=== PATIENT | female | born 1935 | race Caucasian/White ===

== ENCOUNTER 2021-03-28 21:59 | Inpatient (IN) | payer OTHER ==
[2021-03-28] MEDS ORDERED: ONDANSETRON 4 MG/2 ML VIAL ONE (22:24)
[2021-03-28] MEDS ORDERED: FENTANYL CITR 100 MCG/2 ML ONE ×2 (22:24→23:23)
--- NOTE | 2021-03-28 23:36 | ER ---
Nurse's Notes [facility] Name: Maureen Martin Age: 85 yrs Sex: Female : 1935 Arrival Date: 03/28/2021 Time: 22:02 Bed 7 Private MD: Diagnosis: Incomplete fracture along the superior aspect of the left femoral neck Presentation: 03/28 22:14 Chief complaint: EMS states: Called for left groin pain after fall in parking lot at lp1 1500 today; Patient denies any other injuries, no head injury, no LOC. Coronavirus screen: At this time, the client does not indicate any symptoms associated with coronavirus-19. Ebola Screen: No symptoms or risks identified at this time. Initial Sepsis Screen: Does the patient meet any 2 criteria? No. Patient's initial sepsis screen is negative. Does the patient have a suspected source of infection? No. Patient's initial sepsis screen is negative. Risk Assessment: Do you want to hurt yourself or someone else? Patient reports no desire to harm self or others. Onset of symptoms was March 28, 2021 at 15:00. 22:14 Method Of Arrival: EMS: [facility] lp1 22:14 Acuity: TAYLA 2 lp1 22:15 Care prior to arrival: None. Mechanism of Injury: Fall from standing position. Trauma lp1 event details: Injury occurred in the [facility], Injury occurred: in a public building. Injury occurred: March 28, 2021 Injury occurred at: 15:00. Historical: - Allergies: 22:17 Latex, Natural Rubber; lp1 - Home Meds: 22:17 Xarelto 20 mg oral tab 1 tab once daily [Active]; omeprazole 40 mg Oral cpDR 1 cap once lp1 daily [Active]; oxybutynin chloride 10 mg Oral tr24 1 tab once daily [Active]; rosuvastatin 10 mg oral tab 1 tab once daily [Active]; - PMHx: 22:17 Hypertensive disorder; hyperlipidemia; Atrial fibrillation; lp1 - PSHx: 22:17 Partial hysterectomy; lp1 - Immunization history:: Adult Immunizations up to date, Client reports receiving the 2nd dose of the Covid vaccine. - Social history:: Smoking status: Patient reports the use of cigarette tobacco products, smokes one-half pack cigarettes per day. - Immunization history: Last tetanus immunization: unknown. Screenin:00 Abuse screen: Denies threats or abuse. Denies injuries from another. Tuberculosis lp1 screening: No symptoms or risk factors identified. 03/29 00:19 Nutritional screening: No deficits noted. Fall Risk Total Harper Fall Scale indicates lp1 High Risk Score (45 or more points). Fall prevention measures have been instituted. Side Rails Up X 2 As available patient and family educated on Fall Prevention Program and Strategies. Primary Survey: 03/28 22:18 NO uncontrolled hemorrhage observed. A: The patient is alert. Airway: patent, No lp1 supplemental oxygen in use on arrival. Breathing/Chest: Respiratory effort: spontaneous, unlabored, Breath sounds: clear, Chest inspection: symmetrical rise and fall of the chest. Circulation: Skin color: pink, Skin temperature: warm, dry. Disability Alert. Exposure/Environment: Obvious injury(ies) are noted at this time: Reports pain with ROM to left hip. 22:20 Reassessment Breathing/Chest Respiratory pattern Regular Respiratory effort Spontaneous lp1 Unlabored Circulation Color Lisco Temperature Warm Dry Disability Alert. Secondary Survey: 22:45 HEENT: No deficits noted. Gastrointestinal: Abdomen is soft. : No signs and/or lp1 symptoms were reported regarding the genitourinary system. Musculoskeletal: Circulation, motion, and sensation intact. Reports pain in left femoral area. Assessment: 22:30 General: Appears in no apparent distress. Behavior is calm, cooperative. Pain: lp1 Complains of pain in left femoral area Pain currently is 7 out of 10 on a pain scale. Quality of pain is described as aching. Neuro: Level of Consciousness is awake, alert, obeys commands, Oriented to person, place, situation. EENT: No signs and/or symptoms were reported regarding the EENT system. Cardiovascular: Patient's skin is warm and dry. Pulses are palpable in right dorsalis pedis artery and left dorsalis pedis artery. Respiratory: Airway is patent Respiratory effort is even, unlabored. GI: No signs and/or symptoms were reported involving the gastrointestinal system. : No signs and/or symptoms were reported regarding the genitourinary system. Derm: Skin is fragile, is thin, Skin is dry, Skin is normal. Musculoskeletal: Circulation, motion, and sensation intact. Reports pain in left femoral area. Vital Signs: 22:14 BP 140 / 100; Pulse 81; Resp 18; Temp 97.3(TE); Pulse Ox 99% on R/A; Weight 45.36 kg lp1 (R); Pain 7/10; 23:00 BP 145 / 65; Pulse 52; Resp 16; Pulse Ox 97% on R/A; lp1 03/29 00:16 BP 122 / 93; Pulse 55; Resp 16; Pulse Ox 100% on R/A; lp1 04:05 BP 107 / 43; Pulse 47; Resp 19; Pain 10/10; bs2 Sierra Coma Score: 03/28 22:30 Eye Response: spontaneous(4). Verbal Response: oriented(5). Motor Response: obeys lp1 commands(6). Total: 15. Trauma Score (Adult): 22:30 Eye Response: spontaneous(1); Verbal Response: oriented(1); Motor Response: obeys lp1 commands(2); Systolic BP: > 89 mm Hg(4); Respiratory Rate: 10 to 29 per min(4); Jewell Score: 15; Trauma Score: 12 ED Course: 22:02 Patient arrived in ED. mw2 22:03 Ángel Archuleta MD is Attending Physician. pkl 22:12 Inserted saline lock: 20 gauge in right forearm, using aseptic technique. Blood ds4 collected. 22:17 Triage completed. lp1 22:17 Arm band placed on. lp1 22:23 Hip Left 2 View XRAY In Process Unspecified. EDMS 22:30 Patient maintains SpO2 saturation greater than 95% on room air. lp1 22:30 Thermoregulation: warm blanket given to patient. lp1 22:30 Patient has correct armband on for positive identification. Bed in low position. Call lp1 light in reach. hall monitor on. Pulse ox on. NIBP on. 22:45 Hip Left Wo Con In Process Unspecified. EDMS 22:49 Kalee Willett, RN is Primary Nurse. bs2 23:33 Jan Murillo MD is Hospitalizing Provider. pkl 23:49 XRAY Chest (1 view) In Process Unspecified. EDMS 03/29 00:15 May Felix, RN is Primary Nurse. lp1 00:18 No provider procedures requiring assistance completed. Patient admitted, IV remains in lp1 place. 00:25 Troponin (emerg Dept Use Only) Sent. bs2 00:25 NT PRO-BNP Sent. bs2 00:25 Magnesium Sent. bs2 00:25 LFT's Sent. bs2 00:25 Basic Metabolic Panel Sent. bs2 00:26 COVID-19 SARS RT PCR (Document "Date of Onset" if Symptomatic) Sent. bs2 04:05 Troponin I Sent. bs2 Administered Medications: 03/28 22:22 Drug: fentaNYL (PF) 25 mcg Route: IVP; Site: right antecubital; lp1 23:42 Follow up: Response: No adverse reaction lp1 03/29 00:25 Follow up: Response: No adverse reaction bs2 03/28 22:22 Drug: Zofran (Ondansetron) 4 mg Route: IVP; Site: right antecubital; lp1 23:43 Follow up: Response: No adverse reaction lp1 23:28 Drug: fentaNYL (PF) 25 mcg Route: IVP; Site: right forearm; bs2 23:43 Follow up: Response: Pain is decreased lp1 03/29 00:56 Drug: fentaNYL (PF) 25 mcg {Note: Verbal order per Dr. Archuleta.} Route: IVP; Site: right lp1 forearm; 04:05 Follow up: Response: No adverse reaction bs2 03:52 Drug: fentaNYL (PF) 25 mcg Route: IVP; Site: right forearm; bs2 04:05 Follow up: Response: No adverse reaction; Pain is unchanged, physician notified bs2 04:05 Drug: fentaNYL (PF) 25 mcg Route: IVP; Site: right forearm; bs2 04:15 Drug: Atropine 0.5 mg Route: IVP; Site: right forearm; lp1 Outcome: 03/28 23:36 Decision to Hospitalize by Provider. pkl 03/29 00:20 Admitted to ER Hold. Please see [facility] for further documentation. lp1 Condition: stable Instructed on the need for admit. 00:21 admitted as ER HoldPatient's length of stay extended due to lp1 11:03 Patient left the ED. ll1 Signatures: Dispatcher [employer] EDÁngel Perez MD MD pkl May Felix RN RN lp1 Basil Ovalle ds4 Mady Lancaster mw2 Constance Warner RN RN ll1 Kalee Willett RN RN bs2 Corrections: (The following items were deleted from the chart) 03/28 22:18 22:14 BP 140 / 100; Pulse 81bpm; Resp 18bpm; Pulse Ox 99% RA; 45.36 kg Reported; Pain lp1 11/22; lp1
--- NOTE | 2021-03-28 23:36 | EDPHYS ---
Physician Documentation [facility] Name: Maureen Martin Age: 85 yrs Sex: Female : 1935 Arrival Date: 03/28/2021 Time: 22:02 Bed 7 Private MD: ED Physician Ángel Archuleta HPI: 03/28 22:27 This 85 yrs old Female presents to ER via EMS with unknown complaint. pkl 22:27 The patient or guardian reports an injury, pain. sustained from a fall, from a standing pkl position. The complaints affect the left hip. Onset: The symptoms/episode began/occurred today, 6 hour(s) ago. Associated signs and symptoms: Loss of consciousness: the patient experienced no loss of consciousness. Historical: - Allergies: 22:17 Latex, Natural Rubber; lp1 - Home Meds: 22:17 Xarelto 20 mg oral tab 1 tab once daily [Active]; omeprazole 40 mg Oral cpDR 1 cap once lp1 daily [Active]; oxybutynin chloride 10 mg Oral tr24 1 tab once daily [Active]; rosuvastatin 10 mg oral tab 1 tab once daily [Active]; - PMHx: 22:17 Hypertensive disorder; hyperlipidemia; Atrial fibrillation; lp1 - PSHx: 22:17 Partial hysterectomy; lp1 - Immunization history:: Adult Immunizations up to date, Client reports receiving the 2nd dose of the Covid vaccine. - Social history:: Smoking status: Patient reports the use of cigarette tobacco products, smokes one-half pack cigarettes per day. - Immunization history: Last tetanus immunization: unknown. ROS: 22:27 Eyes: Negative for injury, pain, redness, and discharge, ENT: Negative for injury, pkl pain, and discharge, Neck: Negative for injury, pain, and swelling, Cardiovascular: Negative for chest pain, palpitations, and edema, Respiratory: Negative for shortness of breath, cough, wheezing, and pleuritic chest pain, Abdomen/GI: Negative for abdominal pain, nausea, vomiting, diarrhea, and constipation, Back: Negative for injury and pain, : Negative for injury, bleeding, discharge, and swelling. 22:27 MS/extremity: Positive for pain, of the left hip. 22:27 Skin: Negative for rash. 22:27 Neuro: Negative for altered mental status, loss of consciousness. Exam: 22:27 Head/Face: Normocephalic, atraumatic. Eyes: Pupils equal round and reactive to light, pkl extra-ocular motions intact. Lids and lashes normal. Conjunctiva and sclera are non-icteric and not injected. Cornea within normal limits. Periorbital areas with no swelling, redness, or edema. ENT: Nares patent. No nasal discharge, no septal abnormalities noted. Tympanic membranes are normal and external auditory canals are clear. Oropharynx with no redness, swelling, or masses, exudates, or evidence of obstruction, uvula midline. Mucous membranes moist. Neck: Trachea midline, no thyromegaly or masses palpated, and no cervical lymphadenopathy. Supple, full range of motion without nuchal rigidity, or vertebral point tenderness. No Meningismus. Chest/axilla: Normal chest wall appearance and motion. Nontender with no deformity. No lesions are appreciated. Cardiovascular: Regular rate and rhythm with a normal S1 and S2. No gallops, murmurs, or rubs. Normal PMI, no JVD. No pulse deficits. Respiratory: Lungs have equal breath sounds bilaterally, clear to auscultation and percussion. No rales, rhonchi or wheezes noted. No increased work of breathing, no retractions or nasal flaring. Abdomen/GI: Soft, non-tender, with normal bowel sounds. No distension or tympany. No guarding or rebound. No evidence of tenderness throughout. Back: No spinal tenderness. No costovertebral tenderness. Full range of motion. Female : Normal external genitalia. Skin: Warm, dry with normal turgor. Normal color with no rashes, no lesions, and no evidence of cellulitis. Neuro: Awake and alert, GCS 15, oriented to person, place, time, and situation. Cranial nerves II-XII grossly intact. Motor strength 5/5 in all extremities. Sensory grossly intact. Cerebellar exam normal. Normal gait. 22:27 Musculoskeletal/extremity: Extremities: grossly normal except: noted in the left hip: decreased ROM, pain, tenderness. Vital Signs: 22:14 BP 140 / 100; Pulse 81; Resp 18; Temp 97.3(TE); Pulse Ox 99% on R/A; Weight 45.36 kg lp1 (R); Pain 7/10; 23:00 BP 145 / 65; Pulse 52; Resp 16; Pulse Ox 97% on R/A; lp1 03/29 00:16 BP 122 / 93; Pulse 55; Resp 16; Pulse Ox 100% on R/A; lp1 04:05 BP 107 / 43; Pulse 47; Resp 19; Pain 10/10; bs2 Sierra Coma Score: 03/28 22:30 Eye Response: spontaneous(4). Verbal Response: oriented(5). Motor Response: obeys lp1 commands(6). Total: 15. Trauma Score (Adult): 22:30 Eye Response: spontaneous(1); Verbal Response: oriented(1); Motor Response: obeys lp1 commands(2); Systolic BP: > 89 mm Hg(4); Respiratory Rate: 10 to 29 per min(4); Sierra Score: 15; Trauma Score: 12 MDM: 22:03 Patient medically screened. pkl 23:31 Data reviewed: vital signs, nurses notes, lab test result(s), EKG, radiologic studies, pkl CT scan, plain films. ED course: Talked to Dr Peguero, will consult. Admit to Dr. Murillo. 03/28 23:37 Order name: Basic Metabolic Panel; Complete Time: 00:30 pkl 03/28 23:37 Order name: CBC with Diff; Complete Time: 00:12 pkl 03/28 23:37 Order name: LFT's; Complete Time: 00:30 pkl 03/28 23:37 Order name: Magnesium; Complete Time: 00:30 pkl 03/28 23:37 Order name: NT PRO-BNP; Complete Time: 00:30 pkl 03/28 23:37 Order name: PT-INR; Complete Time: 00:12 pk 03/28 23:37 Order name: Troponin (emerg Dept Use Only); Complete Time: 00:30 pkl 03/29 00:25 Order name: COVID-19 SARS RT PCR (Document "Date of Onset" if Symptomatic) bb 03/29 01:04 Order name: Urine Dipstick-Ancillary; Complete Time: 01:42 EDMS 03/29 01:26 Order name: SARS-COV-2 RT PCR; Complete Time: 01:42 EDMS 03/29 03:52 Order name: Troponin I bs2 03/29 04:16 Order name: Troponin I; Complete Time: 05:55 EDMS 03/29 08:21 Order name: PT-INR kb 03/29 08:52 Order name: Protime (+INR) EDMS 03/28 22:10 Order name: Hip Left 2 View XRAY pkl 03/28 22:10 Order name: Saline Lock; Complete Time: 22:14 pkl 03/28 22:25 Order name: Hip Left Wo Con EDNY 03/28 23:37 Order name: XRAY Chest (1 view) pkl 03/28 23:37 Order name: EKG; Complete Time: 23:37 pkl 03/28 23:37 Order name: Cardiac monitoring; Complete Time: 23:42 pkl 03/28 23:37 Order name: EKG - Nurse/Tech; Complete Time: 00:14 pkl 03/28 23:37 Order name: Labs collected and sent; Complete Time: 00:14 pkl 03/28 23:49 Order name: CONS Physician Consult EDNY 03/28 23:37 Order name: O2 Per Protocol; Complete Time: 23:42 pkl 03/28 23:37 Order name: O2 Sat Monitoring; Complete Time: 23:42 pkl 03/28 23:37 Order name: Urine Dipstick-Ancillary (obtain specimen); Complete Time: 00:59 pkl Administered Medications: 22:22 Drug: fentaNYL (PF) 25 mcg Route: IVP; Site: right antecubital; lp1 23:42 Follow up: Response: No adverse reaction lp1 03/29 00:25 Follow up: Response: No adverse reaction bs2 03/28 22:22 Drug: Zofran (Ondansetron) 4 mg Route: IVP; Site: right antecubital; lp1 23:43 Follow up: Response: No adverse reaction lp1 23:28 Drug: fentaNYL (PF) 25 mcg Route: IVP; Site: right forearm; bs2 23:43 Follow up: Response: Pain is decreased lp1 03/29 00:56 Drug: fentaNYL (PF) 25 mcg {Note: Verbal order per Dr. Martínez} Route: IVP; Site: right lp1 forearm; 04:05 Follow up: Response: No adverse reaction bs2 03:52 Drug: fentaNYL (PF) 25 mcg Route: IVP; Site: right forearm; bs2 04:05 Follow up: Response: No adverse reaction; Pain is unchanged, physician notified bs2 04:05 Drug: fentaNYL (PF) 25 mcg Route: IVP; Site: right forearm; bs2 04:15 Drug: Atropine 0.5 mg Route: IVP; Site: right forearm; lp1 Disposition Summary: 03/28/21 23:36 Hospitalization Ordered Hospitalization Status: Inpatient Admission pkl Provider: Jan Murillo pkl Condition: Stable pkl Problem: new pkl Symptoms: are unchanged pkl Bed/Room Type: Standard pkl Location: Telemetry/MedSurg (Inpatient)(03/29/21 10:09) eb Room Assignment: [facility](03/29/21 10:09) eb Diagnosis - Incomplete fracture along the superior aspect of the left femoral neck pkl Forms: - Medication Reconciliation Form pkl - SBAR form pkl Signatures: Dispatcher [employer] EDÁngel Perez MD MD pkl May Felix RN RN lp1 Sienna Arana RN RN cg Botello, Elizabeth eb Smith, Bridget RN RN bs2 Corrections: (The following items were deleted from the chart) 00:27 03/28 23:36 Telemetry/MedSurg (Inpatient) pkl cg 03/29 00:27 03/28 23:36 pkl cg 03/29 10:09 00:27 [facility] ER HOLD cg eb 10:09 00:27 ERHOLD- cg eb
[2021-03-28] MEDS ORDERED: ONDANSETRON 4 MG/2 ML VIAL IV PRN (23:44)
[2021-03-28] MEDS: NA CHLORIDE 0.9% 1,000 ML IV SCH (23:45)
[2021-03-29 00:10] LABS: Absolute Lymphocytes (CBC) 1.4 K/uL (0.7-4.9); Basophils % 0.4 % (0-1.3); Hematocrit 42.8 % (36.0-45.0); Lymphocytes % 14.4 % (15.3-44.8); Protime INR 2.78; RBC Red Blood Cell Count 4.41 M/uL (3.86-4.86)
--- OUTSIDE RECORDS SUMMARY | 2021-03-29 00:21 | XMS REPORT | Continuity of Care Document ---
:1935 Author Organization [facility] t Address [address] [place] [address] Care Team Providers Name Role Phone Tori Attending Clinician Unavailable Jesus GASTELUM Attending Clinician JESUS Attending Clinician Unavailable Kel GASTELUM Attending Clinician KEL Attending Clinician Unavailable Doctor Unassigned, Name Attending Clinician Unavailable GARCÍA Attending Clinician Unavailable Payers Payer Name Policy Type Policy Number Effective Date Expiration Date Ty MCCABE [id number] 2019 PLUS CHOICE 00:00:00 Problems Condition Condition Condition Status Onset Resolution Last Treating Co mments Source Name Details Category Date Date Treatment Clinician Date Uterine Uterine Disease Active 2018-05 Univers polyp polyp 2-06 ity of 00:00: [address] Chronic Chronic Problem Active [facility] atrial atrial [facility] fibrillati fibrillati Me moria on on l [facility] Swelling Swelling Problem Active [facility] Bruising Bruising Problem Active [facility] Skin tear Skin tear Problem Active [facility] of left of left [facility] - upper upper Memoria extremity extremity l [facility] Status Status Problem Active [facility] post fall post fall Luke s - Memoria l [facility] Injury of Injury of Problem Active [facility] head, head, [facility] - initial initial Memoria encounter encounter l [facility] Loss of Loss of Problem Active [facility] consciousn consciousn Brooke kes - ess ess Memoria l [facility] Abnormal Abnormal Problem Active [facility] x-ray of x-ray of [facility] - neck neck Memoria l [facility] Neck pain Neck pain Problem Active [facility]ics Upper back Upper back Problem Active [facility] pain pain [facility] Left eye Left eye Problem Active [facility] complaint complaint [facility] - Memoria l [facility] Elevated Elevated Problem Active [facility] BP without BP without Brooke kes - diagnosis diagnosis Magen mario of of l hypertensi hypertensi Ou tpati on on ent Clinics Dietary Dietary Problem Active [facility] counseling counseling Brooke kes - and and Memoria surveillan surveillan l ce ce [facility] Weight Weight Problem Active [facility] loss loss [facility]ics Skin Skin Problem Active [facility] lesions lesions [facility]ics Onychomyco Onychomyco Diagnosis Active [facility] sis sis [facility] Pain in Pain in Problem Active [facility] right hip right hip [facility] - [facility] Other Other Problem Active [facility] chronic chronic [facility] - pain pain [facility] Peripheral Peripheral Diagnosis Active [facility] vascular vascular [facility] - disease disease [facility] Abnormal Abnormal Problem Active [facility] red cell red cell [facility] Hyperlipid Hyperlipid Diagnosis Active [facility] emia, emia, Lukes - unspecifie unspecifie Me moria d d l hyperlipid hyperlipid Ou tpati emia type emia type ent Clinics Current Current Problem Active [facility] every day every day Luke s - smoker smoker Memoria l [facility] Atrial Atrial Problem Active [facility] fibrillati fibrillati Brooke kes - on, on, Memoria unspecifie unspecifie l d type d type [facility] Claudicati Claudicati Problem Active [facility] on on [facility] Peripheral Peripheral Diagnosis Active [facility] neuropathy neuropathy Brooke kes - Memoria l [facility] Leg pain Leg pain Problem Active [facility]ics Prediabete Prediabete Problem Active [facility] s [facility] Low back Low back Problem Active [facility] pain pain [facility] Colonic Colonic Problem Active [facility] polyp polyp [facility] Prediabete Prediabete Diagnosis Active [facility] s s [facility] Osteopenia Osteopenia Problem Active [facility] Abnormal Abnormal Problem Active [facility] t CBC CBC [facility] Routine Routine Problem Active [facility] eye exam eye exam [facility] Allergies, Adverse Reactions, Alerts Allergy Allergy Status Severity Reaction(s) Onset Inactive Treating Comm ents Source Name Type Date Date Clinician LATEX DRUG Active High ITCHING 2019- Univers INGREDI 7-16 ity of 00:00: [place] 00 [facility] Latex Propensi Active Itching Univers ty to 716 ity of adverse 00:00: [place] reaction 00 Medical s to Branch drug NO KNOWN Drug Active Univers ALLERGIE Class ity of S [facility] Social History Social Habit Start Date Stop Date Quantity Comments Source History of tobacco Cigarette Smoker University of use [facility] Sex Assigned At Universit y of [facility] Exposure to Not sure [facility] SARS-CoV-2 (event) [facility] Cigarettes smoked 2019-11-29 2019-11-29 Univers ity of current (pack per 00:00:00 00:00:00 [facility] ) - Reported [place] Cigarette 2019-11-29 2019-11-29 University of pack-years 00:00:00 00:00:00 [facility] Alcohol intake 2019-11-29 2019-11-29 Current drinker Unive rsity of 00:00:00 00:00:00 of alcohol [facility] (finding) [place] Tobacco use and 2019-11-29 2019-11-29 Never used Universit y of exposure 00:00:00 00:00:00 [facility] Smoking Status Start Date Stop Date Source Current every day smoker 2019-11-29 00:00:00 Uni versity of [facility] Medications Ordered Filled Start Stop Current Ordering Indication Dosage Frequency Signature Comments Components Source Medication Medication Date Date Medication? Clinician (SIG) Name Name MYRBETRIQ Yes [id number] TAKE 1 Un juany 50 mg 1-14 TABLET BY ity of tablet 00:00: MOUTH 00 DAILY Medical Branch mirabegron Yes [id number] 50mg Take 1 U nivers 50 mg 9-29 tablet by ity of tablet 00:00: mouth daily. Medical Branch mirabegron No [id number] 50mg Take 1 Univers 50 mg 02-11 tablet by ity of tablet 00:00: 00:00 mouth [place] 00 :00 daily. Medical Branch OXYBUTYNIN 2020-0 2020- No 10mg 10 mg Unive rs CHLORIDE, 11-2816 daily. ity of BULK, MISC 20:27: 00:00 [place] 20 :00 Medical Branch OXYBUTYNIN 2020-0 2020- No 10mg 10 mg Unive rs CHLORIDE, 11-28 daily. ity of BULK, MISC 20:27: 00:00 [place] 20 :00 Medical Branch rivaroxaban 2020-0 Yes Take by Un juany (XARELTO) 7-16 mouth ity of 20 mg 18:11: daily. [place] tablet 48 Medical Branch rosuvastati 2020-0 Yes Take by Un juany n 10 mg 7-16 mouth ity of CpSP 18:11: daily. [place] [address] Medical Branch rivaroxaban 2020-0 Yes Take by Un juany (XARELTO) 7-16 mouth ity of 20 mg 18:11: daily. [facility] 48 Medical Branch rosuvastati 2020-0 Yes Take by Un juany n 10 mg 7-16 mouth ity of CpSP 18:11: daily. [place] [address] Medical Branch rivaroxaban 2020-0 Yes Take by Un juany (XARELTO) 7-16 mouth ity of 20 mg 18:11: daily. [place] tablet 48 Medical Branch rosuvastati 2020-0 Yes Take by Un juany n 10 mg 7-16 mouth ity of CpSP 18:11: daily. [place] [address] Medical Branch rivaroxaban 2020-0 Yes Take by Un juany (XARELTO) 7-16 mouth ity of 20 mg 18:11: daily. [facility] 48 Medical Branch rosuvastati 2020-0 Yes Take by Un juany n 10 mg 7-16 mouth ity of CpSP 18:11: daily. [place] [address] Medical Branch mirabegron 2020-0 Yes [id number] TK 1 T PO Univers (MYRBETRIQ) 7-16 D ity of 25 mg 00:00: [place] tablet 00 Medical Branch mirabegron 2020-0 Yes [id number] TK 1 T PO Univers (MYRBETRIQ) 7-16 D ity of 25 mg 00:00: [place] tablet 00 Medical Branch mirabegron 2020-0 2020- No [id number] TK 1 T PO Univers (MYRBETRIQ) 11-28-29 D ity of 25 mg 00:00: 00:00 [place] tablet 00 :00 Medical Branch MYRBETRIQ 2020-0 2020- No TK 1 T PO Un juany 25 mg 11-13 D ity of tablet 00:00: 00:00 [place] 00 :00 Medical Branch MYRBETRIQ 2019-0 2020- No TK 1 T PO Un juany 25 mg 11-13 D ity of tablet 00:00: 00:00 [place] 00 :00 Medical Branch pantoprazol 2020-0 Yes TK 1 T PO U nivers e 40 mg EC 5-11 D ity of tablet 00:00: 00 Medical Branch pantoprazol 2020-0 Yes TK 1 T PO U nivers e 40 mg EC 5-11 D ity of tablet 00:00: 00 Medical Branch pantoprazol 2020-0 Yes TK 1 T PO U nivers e 40 mg EC 5-11 D ity of tablet 00:00: 00 Medical Branch pantoprazol 2020-0 Yes TK 1 T PO U nivers e 40 mg EC 5-11 D ity of tablet 00:00: [place] 00 Medical Branch sulfamethox 2019- Yes [id number] 1{tbl} Take 1 Univers azole-trime 2-11 tablet by ity of thoprim 00:00: mouth 2 [place] 800-160 mg 00 (two) Medical per tablet times Branch daily. sulfamethox 2018- Yes [id number] 1{tbl} Take 1 Univers azole-trime 2-11 tablet by ity of thoprim 00:00: mouth 2 [place] 800-160 mg 00 (two) Medical per tablet times Branch daily. sulfamethox 2018-05 Yes [id number] 1{tbl} Take 1 Univers azole-trime 2-11 tablet by ity of thoprim 00:00: mouth 2 [place] 800-160 mg 00 (two) Medical per tablet times Branch daily. sulfamethox 2019- Yes [id number] 1{tbl} Take 1 Univers azole-trime 2-11 tablet by ity of thoprim 00:00: mouth 2 [place] 800-160 mg 00 (two) Medical per tablet times Branch daily. sulfamethox 2018-05 Yes [id number] 1{tbl} Take 1 Univers azole-trime 2-11 tablet by ity of thoprim 00:00: mouth 2 [place] 800-160 mg 00 (two) Medical per tablet times Branch daily. sulfamethox 2018-05 Yes [id number] 1{tbl} Take 1 Univers azole-trime 2-11 tablet by ity of thoprim 00:00: mouth 2 [place] 800-160 mg 00 (two) Medical per tablet times Branch daily. sulfamethox 2018-05 Yes [id number] 1{tbl} Take 1 Univers azole-trime 2-11 tablet by ity of thoprim 00:00: mouth 2 [place] 800-160 mg 00 (two) Medical per tablet times Branch daily. Estradiol 2018-05 Yes [id number] 1 per Uni vers (VAGIFEM) 2-07 vagina ity of 10 mcg 00:00: every [place] tablet 00 night for Medical 2 weeks, Branch then every , , Tuesday pm. Estradiol 2018-05 Yes [id number] 1 per Uni vers (VAGIFEM) 2-07 vagina ity of 10 mcg 00:00: every [place] tablet 00 night for Medical 2 weeks, Branch then every , , Tuesday pm. Estradiol 2018-05 Yes [id number] 1 per Uni vers (VAGIFEM) 2-07 vagina ity of 10 mcg 00:00: every [place] tablet 00 night for Medical 2 weeks, Branch then every , , Tuesday pm. Estradiol 2018-05 Yes [id number] 1 per Uni vers (VAGIFEM) 2-07 vagina ity of 10 mcg 00:00: every [place] tablet 00 night for Medical 2 weeks, Branch then every , , Tuesday pm. Estradiol 2018-05 Yes [id number] 1 per Uni vers (VAGIFEM) 2-07 vagina ity of 10 mcg 00:00: every [place] tablet 00 night for Medical 2 weeks, Branch then every , , Tuesday pm. Estradiol 2018-05 Yes [id number] 1 per Uni vers (VAGIFEM) 2-07 vagina ity of 10 mcg 00:00: every [place] tablet 00 night for Medical 2 weeks, Branch then every , , Tuesday pm. Estradiol 2018-05 Yes [id number] 1 per Uni vers (VAGIFEM) 2-07 vagina ity of 10 mcg 00:00: every [place] tablet 00 night for Medical 2 weeks, Branch then every , , Tuesday pm. OXYBUTYNIN 2019- Yes 10mg 10 mg Univer s CHLORIDE, 2-06 daily. ity of BULK, MISC 14:47: [address] rosuvastati 2018-05 Yes Take by Un juany n 10 mg 2-06 mouth ity of CpSP 14:47: daily. [address] rivaroxaban 2018- Yes Take by Un juany (XARELTO) 2-06 mouth ity of 20 mg 14:47: daily. [place] tablet [address] [place] [address] OXYBUTYNIN 2018- Yes 10mg 10 mg Univer s CHLORIDE, 2-06 daily. ity of BULK, MISC 14:47: [address] rosuvastati 2018- Yes Take by Un juany n 10 mg 2-06 mouth ity of CpSP 14:47: daily. [address] rivaroxaban 2018- Yes Take by Un juany (XARELTO) 2-06 mouth ity of 20 mg 14:47: daily. [address] OXYBUTYNIN 2018- Yes 10mg 10 mg Univer s CHLORIDE, 2-06 daily. ity of BULK, MISC 14:47: [address] rosuvastati 2018- Yes Take by Un juany n 10 mg 2-06 mouth ity of CpSP 14:47: daily. [address] rivaroxaban 2018- Yes Take by Un juany (XARELTO) 2-06 mouth ity of 20 mg 14:47: daily. [address] Nitroglycer Nitroglycer Yes Amber as [facility] in 8- [place] directed [facility] - 00:00: Memoria 00 l Outpati ent Clinics [facility] 2019- No Amber [address] [facility] 8-28 11-26 [place] applicatio Don es - 00:00: 00:00 n to Memoria 00 :00 affected l toenails [facility] ent feet Clinics Glucerna Glucerna Yes Amber as [facility] 3-29 [place] directed [facility] - 00:00: Memoria 00 l Outpati ent Clinics Losartan Losartan 2017-05 Yes Amber 1/[address] Potassium Potassium 2-12 [place] tablet [facility]ukes - 00:00: Memoria 00 l Outpati ent Clinics Triamcinolo Triamcinolo 0 Yes Amber [address] [facility] ne ne 3-19 [place] applicatio Luke s - Acetonide Acetonide 00:00: n to Mem oria 00 affected l area Outpati ent Clinics VICOPROFEN Yes 1 tab Q4-6 U nivers 7.5-200 MG 8-11 hours PRN ity of ORAL TAB 00:00: pain Medical Branch CEPHALEXIN Yes 1 tab PO Uni vers 500 MG ORAL 8-11 BID ity of CAP 00:00: Medical Branch VICOPROFEN Yes 1 tab Q4-6 U nivers 7.5-200 MG 8-11 hours PRN ity of ORAL TAB 00:00: pain Medical Branch CEPHALEXIN Yes 1 tab PO Uni vers 500 MG ORAL 8-11 BID ity of CAP 00:00: Medical Branch VICOPROFEN Yes 1 tab Q4-6 U nivers 7.5-200 MG 8-11 hours PRN ity of ORAL TAB 00:00: pain Medical Branch CEPHALEXIN Yes 1 tab PO Uni vers 500 MG ORAL 8-11 BID ity of CAP 00:00: Medical Branch VICOPROFEN Yes 1 tab Q4-6 U nivers 7.5-200 MG 8-11 hours PRN ity of ORAL TAB 00:00: pain Medical Branch CEPHALEXIN Yes 1 tab PO Uni vers 500 MG ORAL 8-11 BID ity of CAP 00:00: Medical Branch VICOPROFEN Yes 1 tab Q4-6 U nivers 7.5-200 MG 8-11 hours PRN ity of ORAL TAB 00:00: pain Medical Branch CEPHALEXIN Yes 1 tab PO Uni vers 500 MG ORAL 8-11 BID ity of CAP 00:00: Medical Branch VICOPROFEN Yes 1 tab Q4-6 U nivers 7.5-200 MG 8-11 hours PRN ity of ORAL TAB 00:00: pain Medical Branch CEPHALEXIN Yes 1 tab PO Uni vers 500 MG ORAL 8-11 BID ity of CAP 00:00: Medical Branch VICOPROFEN 0 Yes 1 tab Q4-6 U nivers 7.5-200 MG 8-11 hours PRN ity of ORAL TAB 00:00: pain [address] CEPHALEXIN 2007-0 Yes 1 tab PO Uni vers 500 MG ORAL 8-11 BID ity of CAP 00:00: [address] Xarelto Xarelto Yes Amber [address] [facility] [place] in evening Luke s - with food Memoria l Outpati ent Clinics Calcium Calcium Yes Amber 600 mg>>>[address] [place] tablet [facility]oria [facility] Outpat[facility] ent Clinics Crestor Crestor Yes Amebr [address] [facility] [address] [place] in evening Luke s - Memoria l Outpati ent Clinics Folic Acid Folic Acid Yes Amber [address] [facility] [place] [facility] l Outpati ent Clinics Tylenol # 3 Tylenol # 3 Yes Amber [address] [facility] [place] as needed [facility] - Memoria l Outpati ent Clinics Gabapentin Gabapentin Yes Amber [address] [facility] [place] before [facility]ukes - bedtime Memoria l Outpati ent Clinics Losartan Losartan Yes Amber TAKE 1/[address] Potassium Potassium [place] TO 1 Lukes - TABLET BY Memoria MOUTH l EVERY DAY Outpati NEEDED ent FOR BLOOD Clinics PRESSURE GREATER THAN OR EQUAL TO 150/90 Vitamin B12 Vitamin B12 Yes Amber [address] [facility] [facility] [place] [facility] - Mem[facility] l Outpati ent Clinics Vitamin D Vitamin D Yes Amber [address] [facility] [place] [facility] Outpat[facility] ent Clinics Multivitami Multivitami Yes Amber [address] [facility] n n Millender [facility] - [facility] l Outpati ent Clinics Tramadol Tramadol Yes Amber [address] HCl HCl [place] as needed [facility] - Memoria l Outpati ent Clinics Oxybutynin Oxybutynin Amber [address] Chloride ER Chloride ER 05-17 [place] [facility] - 00:00 Memoria :00 l Outpati ent Clinics Vital Signs Vital Name Observation Time Observation Value Comments Source Systolic blood 2019-11-29 18:14:00 112 mm[Hg] Univer sity of pressure [facility] Diastolic blood 2019-11-29 18:14:00 70 mm[Hg] Unive rsity of pressure [facility] Heart rate 2019-11-29 18:14:00 73 /min [facility] Respiratory rate 2019-11-29 18:14:00 18 /min [facility] [place] [facility] ersity [facility] Body height 2019-11-29 18:14:00 154.9 cm Universi ty of [place] [facility] [place] Body weight 2019-11-29 18:14:00 46.403 kg Universi ty of [place] [facility] BMI 2019-11-29 18:14:00 19.33 kg/m2 Universi ty of [facility] Systolic blood 2019-11-01 20:21:00 123 mm[Hg] Univer sity of pressure [facility] Diastolic blood 2019-11-01 20:21:00 73 mm[Hg] Unive rsity of [facility] Heart rate 2019-11-01 20:21:00 85 /min Universi ty of [facility] Body temperature 2019-11-01 20:21:00 36.83 Alondra [facility] [place] [facility] 2019-11-01 20:21:00 20 /min [facility] [place] [facility] Body height 2019-11-01 20:21:00 152.4 cm Universi ty of [facility] Body weight 2019-11-01 20:21:00 44.815 kg Universi ty [facility] [place] [facility] BMI 2019-11-01 20:21:00 19.30 kg/m2 Universi ty of [facility] Oxygen saturation in 2019-11-01 20:21:00 98 /min [facility] Arterial blood by [facility] Pulse oximetry Branch Procedures Procedure Date / Time Performed Performing Clinician Sour e POCT URINALYSIS AUTO 2019-11-01 20:27:00 [place] Franco [facility] REFERRAL- 2019-10-22 05:01:00 Doctor Unassigned, No [facility] REQUEST/RESPONSE Name Medical Branch Encounters Start End Encounter Admission Attending Care Care Encounter Source Date/Time Date/Time Type Type Clinicians Facility Department ID 2020-09-16 Inpatient Rastyson, HCACL OUTD [id number] [facility] 12:30:00 Red [id number] [facility] 2020-05-28 2020-05-28 Maryam Lee NDJOSE [id number] Univers 00:00:00 00:00:00 [facility] [id number] [facility] [id number] [facility] [id number] [facility] Primary & 204 Branch Specialty Care 2020-02-12 2020-02-12 [facility] [id number] Univers 00:00:00 [facility]:00[facility] [id number] it [facility] of [place] [id number] [facility] [id number] [facility] Primary & 204 Branch Specialty Care 2019-11-29 2019-11-29 [facility] [id number] Univers 13:00:05 13:15:05 Visit [facility] [id number] it y of [place] [id number] [facility] [id number] [facility] Primary [facility] Branch Specialty Care 2019-11-29 2019-11-29 Outpatient [facility] [id number] Univers 13:15:00 13:15:00 BILAL [id number] ity [facility] 2019-11-29 2019-11-29 Outpatient [facility] [id number] Univers 13:15:00 13:15:00 BILAL ity [facility] 2019-11-27 2019-11-27 Outpatient Jose [facility] [id number] Univers 10:45:00 10:45:00 BILAL [id number] ity [facility] 2019-11-20 2019-11-20 Outpatient Jose [facility] [id number] Univers 15:00:00 15:00:00 BILAL ity of [facility] 2019-11-20 2019-11-20 Outpatient Jose [facility] [id number] Univers 15:00:00 15:00:00 [facility] 2019-11-01 2019-11-01 [facility] [id number] Univers 15:03:30 15:35:53 Visit [place] Daily [id number] i ty of [place] [id number] [facility] Professio [id number] [place]ical [facility] 204 Branch Building 2019-11-01 2019-11-01 Outpatient [facility] [id number] Univers 15:00:00 15:00:00 [place] [id number] ity [facility] 2019-11-01 2019-11-01 Outpatient R KEL [facility] [id number] Univers 15:00:00 15:00:00 [place] ity [facility] 2019-10-22 2019-10-22 Orders Doctor PLATA [id number] Univers 00:00:00 00:00:00 Only Unassigned, [place] [id number] ity of [facility] [id number] Jesse as [id number] [address] 2019-08-24 2019-08-24 Outpatient R RICKY [facility] [id number] Univers 15:00:00 15:00:00 MITA ity [facility] 2019-08-24 2019-08-24 Outpatient R RICKY [facility] [id number] Univers 10:30:00 10:30:00 MITA [id number] ity [facility] 2019-08-24 2019-08-24 Outpatient R RICKY [facility] [id number] Univers 10:30:00 10:30:00 [place]A ity [facility] 2019-08-03 2019-08-03 Outpatient R RICKY [facility] [id number] Univers 14:00:00 14:00:00 MITA [id number] ity [facility] 2019-07-20 2019-07-20 Outpatient R RICKY [facility] [id number] Univers 09:30:00 09:30:00 [place]A ity [facility] 2019-04-20 2019-04-20 Outpatient R RICKY [facility] [id number] Univers 08:30:00 09:44:13 [place] ity [facility] 2019-01-09 2019-01-09 [facility] [id number] 14:21:00 14:21:00 [facility] s [facility] Medicine Medicine Outpati ent Clinics 2019-01-03 2019-01-03 [facility] [id number] 16:00:00 16:00:00 t [facility] Medicine Outpati ent Clinics 2018-11-29 2018-11-29 [facility] [id number] 10:44:00 10:44:00 t [facility] Medicine Outpati ent Clinics 2018-11-29 2018-11-29 [facility] [id number] 10:05:00 10:05:00 [place] [address] [facility] [address] [facility] Medicine Outpati ent Clinics 2018-11-28 2018-11-28 [facility] [id number] 14:40:00 14:40:00 t [facility] Medicine Outpati ent Clinics 2018-10-19 2018-10-19 [facility] [id number] 16:57:00 16:57:00 t [facility] Medicine Outpati ent Clinics 2018-08-16 2018-08-16 [facility] [id number] 14:42:00 14:42:00 t [facility] Medicine Outpati ent Clinics 2018-07-20 2018-07-20 [facility] [id number] 01:51:00 01:51:00 t [facility] Medicine Outpati ent Clinics 2018-07-19 2018-07-19 [facility] [id number] 16:00:00 16:00:00 t [facility] Medicine Outpati ent Clinics 2018-05-11 2018-05-11 [facility] [id number] 00:09:00 00:09:00 t [facility] Medicine Outpati ent Clinics 2018-05-04 2018-05-04 [facility] [id number] 08:24:00 08:24:00 t [facility] Medicine Outpati ent Clinics 2018-04-26 2018-04-26 [facility] [id number] 13:45:00 13:45:00 t [facility] Medicine Medicine Outpati ent Clinics 2018-02-28 2018-02-28 [facility] [id number] [facility] 11:00:00 11:00:00 t [facility] Medicine Outpati ent Clinics 2018-02-22 2018-02-22 [facility] [id number] 20:22:00 20:22:00 t [facility] Medicine l Medicine Outpati ent Clinics 2018-02-21 2018-02-21 [facility] [id number] 13:00:00 13:00:00 t [facility] Medicine l Medicine Outpati ent Clinics 2018-02-20 2018-02-20 [facility] [id number] 15:43:00 15:43:00 [facility] [facility] 2018-02-01 2018-02-01 [facility] [id number] [facility] 16:00:00 16:00:00 t [facility] Medicine Medicine Outpati ent Clinics 2017-11-18 2017-11-18 [facility] [id number] [facility] 11:53:00 11:53:00 t [facility] Medicine Medicine Outpati ent Clinics 2017-11-07 2017-11-07 [facility] [id number] [facility] 22:32:00 22:32:00 t [facility] Medicine Medicine Outpati ent Clinics 2017-11-04 2017-11-04 [facility] [id number] [facility] 15:45:00 15:45:00 t [facility] Medicine Outpati ent Clinics 2017-08-01 2017-08-01 [facility] [id number] 11:45:00 11:45:00 t [facility] Medicine Outpati ent Clinics Results Test Description Test Time Test Comments Results Result Comments Source POCT URINALYSIS, INSTRUMENT 2019-11-01 20:28:00 Test Item Value Reference Range Interpretation Comme nts POCT U SP GRAV (test code = 3255) 1.010 mg/dl 1.005-1.025 POCT PH U (test code = 3254) 6.5 mg/dl 5-8 POCT U LEUK EST (test code = 3263) Negative Negative - Negative POCT U NIT (test code = 3262) Negative Negative - Negative POCT U PROT (test code = 3259) Negtaive Negative - Negative POCT U GLU (test code = 3256) Nagtive Negative - Negative POCT U KETONE (test code = 3258) Negative Negative - Negative POCT U UROBILI (test code = 3260) 0.2 mg/dl 0.2-1 POCT U BILI (test code = 3261) Negative Negative - Negative POCT U BLD (test code = 3257) small Negative - Negative POCT U COLOR (test code = 3266) yellow POCT U APPEAR (test code = 3267) clear Lab Interpretation (test code = 85150-2) Abnormal [facility] [place], [id number] 20:28:00 Test Item Value Reference Range Interpretation Comments POCT U SP GRAV (test code = 1.010 mg/dl 1.005-1.025 3255) POCT PH U (test code = 3254) 6.5 mg/dl 5-8 POCT U LEUK EST (test code = Negative Negative - Negative 3263) POCT U NIT (test code = 3262) Negative Negative - Negative POCT U PROT (test code = Negtaive Negative - Negative 3259) POCT U GLU (test code = 3256) Nagtive Negative - Negative POCT U KETONE (test code = Negative Negative - Negative 3258) POCT U UROBILI (test code = 0.2 mg/dl 0.2-1 3260) POCT U BILI (test code = Negative Negative - Negative 3261) POCT U BLD (test code = 3257) small Negative - Negative POCT U COLOR (test code = yellow 3266) POCT U APPEAR (test code = clear 3267) Lab Interpretation (test code Abnormal = 81920-7) [facility] [place], [place]
[2021-03-29 00:27] LABS: Albumin 3.6 g/dL (3.4-5.0); Bilirubin Direct 0.3 mg/dL (0-0.2); Bilirubin Total 0.9 mg/dL (0.2-1.0); Magnesium 2.2 mg/dL (1.8-2.4); Protein, Total 6.8 g/dL (6.4-8.2); Troponin (Emerg Dept Use Only) 0.02 ng/mL (0.0-0.045)
[2021-03-29 00:37] VITALS: BMI 19.3
[2021-03-29] MEDS ORDERED: NA CHLORIDE 0.9% 1,000 ML ONE ×2 (00:46→08:56)
[2021-03-29] MEDS ORDERED: FENTANYL CITR 100 MCG/2 ML ONE ×4 (00:49→06:43)
[2021-03-29 01:04] LABS: Urine Blood 1+ (Negative); Urine Glucose Negative (Negative); Urine Protein Negative (Negative)
[2021-03-29] MEDS ORDERED: NA CHLORIDE 0.9% 500 ML ONE (03:36)
[2021-03-29] MEDS ORDERED: ATROPINE SULF 1 MG/10 ML SYR IV ONE (04:09)
--- NOTE | 2021-03-29 08:34 | RAD REPORT ---
EXAM DESCRIPTION: RAD - Chest Single View - 03/28/2021 11:49 pm CLINICAL HISTORY: Fx left hip COMPARISON: Abdomen 1 View (KUB) dated 01/11/2019; Chest Pa And Lat (2 Views) dated 11/09/2018; Chest Pa And Lat (2 Views) dated 12/06/2016; Chest Pa And Lat (2 Views) dated 07/30/2016 FINDINGS: Lines: None. Lungs: No evidence of edema or pneumonia. Pleural: No significant pleural effusions or pneumothorax. Cardiac: The heart size is within normal limits. Bones: No acute fractures. Other: IMPRESSION: No acute cardiopulmonary disease.
--- NOTE | 2021-03-29 08:49 | DS ---
History Of Present Illness: This is my first time seeing this patient to my knowledge. She is an 85 -year-old female, who was walking, unfortunately fell. When she did, she was able to get up and walk additionally; however, very tenderly. Later on that night, she had increasing pain related to her l eft hip. She then was taken to the emergency department where x-rays were taken, which were equivoca l; however, she does have a CT scan, which demonstrates a fracture at the superior aspect of the femo ral neck without significant displacement. Physical Examination: All of her long bones and joints are palpated without pain or crepitation with exception of her left hip, which is painful to any movement or manipulation. Laboratory Data: Review of her laboratories reveals she has a high INR and high BNP. Assessment And Plan: Speaking with her and her family, states that she is on Xarelto and her last Xa relto was approximately 8 p.m. last night. At this time, I believe that she can eat. I have spoken with primary care physician, Dr. Murillo and unsure why she has a high INR. We will ask for this to be repeated. I think she can eat today, n.p.o. after 9 a.m. tomorrow. At 9 a.m., we will check to see whether or not preoperative testing has been completed and if so, most likely we will move forward w ith screw fixation tomorrow. Risks, benefits, and alternatives to this have been discussed with the patient and family. If they have not moved forward with the clearance, most likely we will delay thi s until Tuesday and this has all been explained to the family. ANUJA Voice ID: [id number] Report ID: [id number]
[2021-03-29 08:50] LABS: Protime INR 1.62
[2021-03-29] MEDS: NA CHLORIDE 0.9% 1,000 ML IV SCH ×2 (09:07→20:20)
--- NOTE | 2021-03-29 09:35 | RAD REPORT ---
EXAM DESCRIPTION: RAD - Hip Left 2 View - 03/28/2021 10:23 pm CLINICAL HISTORY: fall;Pain COMPARISON: Hip Left Wo Con dated 03/28/2021 FINDINGS: No acute fracture. No malalignment. No significant focal degenerative changes. IMPRESSION: Known left femoral neck fracture better demonstrated on CT. No dislocation.
--- NOTE | 2021-03-29 11:06 | P.HP ---
Certification for Inpatient Patient admitted to: Inpatient With expected LOS: >2 Midnights Patient will require the following post-hospital care: Nursing Home Practitioner: I am a practitioner with admitting privileges, knowledge of patient current condition, hospital course, and medical plan of care. Services: Services provided to patient in accordance with Admission requirements found in Title 42 Section 412.3 of the Code of Federal Regulations Patient History Date of Service: 03/29/21 Primary Care Provider: Chidi Reason for admission: Left hip fracture History of Present Illness: Pleasant elderly patient who wishes to establish care. She has a history of atrial fib, urinary incontinence and hyperlipidemia. She was walking out of the [employer] when she tripped and fell. She had no dizziness. No loc. No seizure activity. Was helped to her car by passer by. At home she was not able to get up and out of bed. Her daughter eventuallly brought her to the ER. She was found to have a left hip fracture. Her INR was elevated. She was also bradycardic. She has seen Dr. Brice in the past. Has had a holtor monitor(possibly). She is currently sitting in the ER bed. She does not have pain on movement. However when she moves or stands. it is a 02/22. 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 moist/pink, EOMI, Sclerae nonicteric Neck: Supple, 2+ carotid pulse no bruit, No LAD, Without JVD or thyroid abnormality Respiratory: Clear to auscultation bilaterally, Normal air movement Cardiovascular: Regular rate/rhythm, Normal S1 S2 Gastrointestinal: Normal bowel sounds, No tenderness Musculoskeletal: No tenderness Integumentary: No rashes Neurological: Normal gait, Normal speech, Normal strength at 5/5 x4 extr, Normal tone, Normal affect Lymphatics: No axilla or inguinal lymphadenopathy Assessment and Plan - Problems (Diagnosis) (1) Closed left hip fracture Current Visit: Yes Status: Acute Plan: Will need cardiac clearance due to her bradycardia. Plans for screws with Dr Peguero. May be able to get cardiac clearance tomorrow and possible surgery on Tuesday. Qualifiers: Encounter type: initial encounter Qualified Code(s): S72.002A - Fracture of unspecified part of neck of left femur, initial encounter for closed fracture (2) Atrial fibrillation Current Visit: No Status: Acute Plan: she currently is bradycardic. Will consult Dr. Brice. Avoid beta priscilla. Will also get an echocardiogram Qualifiers: Atrial fibrillation type: longstanding persistent Qualified Code(s): I48.11 - Longstanding persistent atrial fibrillation (3) Hyperlipidemia Current Visit: Yes Status: Chronic Plan: will check lipids and reorder atorvastain Qualifiers: Hyperlipidemia type: moderate mixed hyperlipidemia not requiring statin therapy Qualified Code(s): E78.2 - Mixed hyperlipidemia (4) Urinary incontinence Current Visit: Yes Status: Acute Plan: will restart her oxybutrin in the morning Discharge Plan: LTAC Plan to discharge in: 24 Hours - Advance Directives Does patient have a Living Will: No Does patient have a Durable POA for Healthcare: No - Code Status/Comfort Care Code Status Assessed: No Code Status: Full Code Critical Care: No Time Spent Managing Pts Care (In Minutes): 45
[2021-03-29] MEDS: MORPHINE 2 MG/ML SYR IV PRN (20:20)
[2021-03-30] MEDS: NA CHLORIDE 0.9% 1,000 ML IV SCH ×2 (06:17→17:16)
[2021-03-30] MEDS ORDERED: REGADENOSON 0.4 MG/5 ML SYR IV ONE (07:29)
[2021-03-30] MEDS: MORPHINE 2 MG/ML SYR IV PRN (07:58)
--- NOTE | 2021-03-30 09:51 | P.PN ---
Subjective Date of Service: 03/30/21 Primary Care Provider: Chidi Chief Complaint: Left hip fracture Subjective: No new changes Review of Systems 10-point ROS is otherwise unremarkable Physical Examination - Vital Signs Temperature: 97.7 F Blood Pressure: 165/73 Pulse: 54 Respirations: 16 Pulse Ox (%): 95 - Physical Exam General: Alert, In no apparent distress, Mild distress HEENT: Atraumatic, PERRLA, EOMI Neck: Supple, JVD not distended Respiratory: Clear to auscultation bilaterally, Normal air movement Cardiovascular: Regular rate/rhythm, Normal S1 S2 Gastrointestinal: Normal bowel sounds, No tenderness Musculoskeletal: No tenderness Integumentary: No rashes Neurological: Normal speech, Normal tone, Normal affect Lymphatics: No axilla or inguinal lymphadenopathy Assessment & Plan - Problems (Diagnosis) (1) Closed left hip fracture Current Visit: Yes Status: Acute Plan: Will need cardiac clearance due to her bradycardia. Plans for screws with Dr Peguero. May be able to get cardiac clearance tomorrow and possible surgery on Tuesday. had a stress test for clearance. Will consult with . Hopefully we can have surgery on Tuesday Qualifiers: Encounter type: initial encounter Qualified Code(s): S72.002A - Fracture of unspecified part of neck of left femur, initial encounter for closed fracture (2) Atrial fibrillation Current Visit: No Status: Acute Plan: she currently is bradycardic. Will consult Dr. Brice. Avoid beta priscilla. Will also get an echocardiogram Qualifiers: Atrial fibrillation type: longstanding persistent Qualified Code(s): I48.11 - Longstanding persistent atrial fibrillation (3) Hyperlipidemia Current Visit: Yes Status: Chronic Plan: will check lipids and reorder atorvastain Qualifiers: Hyperlipidemia type: moderate mixed hyperlipidemia not requiring statin therapy Qualified Code(s): E78.2 - Mixed hyperlipidemia (4) Urinary incontinence Current Visit: Yes Status: Acute Plan: will restart her oxybutrin in the morning Discharge Plan: Home Plan to discharge in: 48 Hours - Code Status/Comfort Care Code Status Assessed: No Physician Review: Patient Assessed, Agree with Above Assessment and Plan Critical Care: No Time Spent Managing Pts Care (In Minutes): 20
--- NOTE | 2021-03-30 10:49 | RAD REPORT ---
EXAM DESCRIPTION: CT - Hip Left Wo Con - 03/29/2021 2:19 am CLINICAL HISTORY: 85 years, Female, fall COMPARISON: None. TECHNIQUE: Multiple transaxial tomograms of the left hip were obtained utilizing 2 mm slice thicknes s at 2 mm interval reconstruction without the administration of IV contrast. 2-D multiplanar reformat s in sagittal and coronal plane were generated and reviewed. This exam was performed according to our departmental dose-optimization protocol, which includes auto mated exposure control, adjustment of the mA and/or kV according to patient size and/or use of iterat amanda reconstruction technique. FINDINGS: The bone windows demonstrate diffuse bony osteopenia. Degenerative changes right SI joint. Right pelvic bone, superior and inferior pubic rami demonstrate to be unremarkable. Minimal spur for mation along the ischial tuberosity. There is a incomplete fracture along the superior aspect left femoral neck adjacent to the posterior aspect of the femoral head best demonstrated on axial image 35-45. Heterotopic bone formation along the greater trochanter. Lesser trochanter demonstrate to be within n ormal limits. There is no evidence for significant impaction. There is no evidence for significant di astases there is minimal trace of the left joint effusion. Minimal fecal residue within the rectum. Status post hysterectomy. IMPRESSION: Incomplete fracture along the superior aspect of the left femoral neck adjacent to the p osterior aspect of the femoral head. Heterotopic bone formation along the greater trochanter. Diffuse bony osteopenia. Minimal trace of the left joint effusion. Electronically signed by: Justice Mittal MD 03/28/2021 11:17 PM [employer] Due to temporary technical issues with the PACS/Fluency reporting system, reports are being signed by the in house radiologists without review as a courtesy to insure prompt reporting. The interpreting radiologist is fully responsible for the content of the report.
--- NOTE | 2021-03-30 12:43 | RAD REPORT ---
EXAM DESCRIPTION: NM - Rest Stress Cardiac Imaging - 03/30/2021 9:48 am CLINICAL HISTORY: Chest pain COMPARISON: None. TECHNIQUE: The patient was administered 9.8 mCi of Tc 99m Sestamibi prior to resting SPECT imaging o f the heart. The patient was then administered 30.4 mCi of Tc 99m Sestamibi following exercise or pha rmacologic stress. Multiplanar SPECT images were reviewed. FINDINGS: The end diastolic volume is 103 ml, the end systolic volume is 65 ml, and the ejection fra ction is 37 %. Fixed decreased activity is seen along the muscular septum and apex of the anterior wall. Stress imag ing shows decreased activity in the midportion of the anterior wall and in the midportion of the sept al wall not seen on the rest sequencing. Diminished activity along the inferior wall is believed to b e mostly artifact from diaphragm attenuation. IMPRESSION: Stress ischemia identified in the midportion anterior wall and midportion of the muscula r septum Fixed defects are seen in the anterior wall and septum near the apex. End-diastolic volume is 103 mL with a poor ejection fraction of 37%.
[2021-03-30] MEDS: BISACODYL E.C. 5 MG TAB PO PRN (17:13)
[2021-03-30] MEDS: ACETAMINOPHEN 500 MG TAB PO SCH ×2 (17:14→23:28)
[2021-03-31] MEDS: HYDROMORPHONE HCL 0.5 MG/0.5 ML INJ IV PRN ×2 (00:25→20:36)
[2021-03-31] MEDS: NA CHLORIDE 0.9% 1,000 ML IV SCH ×3 (02:57→20:37)
[2021-03-31] MEDS: ACETAMINOPHEN 500 MG TAB PO SCH ×3 (06:00→17:14)
[2021-03-31 06:04] LABS: Absolute Lymphocytes (CBC) 1.6 K/uL (0.7-4.9); Basophils % 0.3 % (0-1.3); Hematocrit 39.4 % (36.0-45.0); MPV 8.4 fL (7.6-11.3); RBC Red Blood Cell Count 4.04 M/uL (3.86-4.86)
[2021-03-31 06:44] LABS: ALT/SGPT 19 U/L (12-78); AST/SGOT 27 U/L (15-37); Alkaline Phosphatase 65 U/L (45-117); BUN Blood Urea Nitrogen 8 mg/dL (7-18); Bicarbonate 24 mmol/L (21-32); Bilirubin Total 1.1 mg/dL (0.2-1.0); Glucose Level 94 mg/dL (74-106); Potassium 3.6 mmol/L (3.5-5.1); Protein, Total 6.3 g/dL (6.4-8.2); Sodium Level 139 mmol/L (136-145)
--- NOTE | 2021-03-31 06:57 | ECHO ---
HEIGHT: 5 ft 1 in WEIGHT: 102 lb 0 oz DATE OF STUDY: 03/30/[address]: Jan Murillo MD 2-DIMENSIONAL: YES M.MODE: YES DOPPLER: YES COLOR FLOW: YES TDS: PORTABLE: DEFINITY: BUBBLE STUDY: DIAGNOSIS: ATRIAL FIBRILLATION CARDIAC HISTORY: CATHERIZATION: SURGERY: PROSTHETIC VALVE: PACEMAKER: MEASUREMENTS (cm) DIASTOLIC (NORMALS) SYSTOLIC (NORMALS) IVSd 0.9 (0.6-1.2) LA Diam 3.4 (1.9-4.0) LVEF 52% LVIDd 5.1 (3.5-5.7) LVIDs 3.8 (2.0-3.5) %FS 26% LVPWd 0.8 (0.6-1.2) Ao Diam 2.1 (2.0-3.7) 2 DIMENSIONAL ASSESSMENT: RIGHT ATRIUM: NORMAL LEFT ATRIUM: ENLARGED RIGHT VENTRICLE: NORMAL LEFT VENTRICLE: NORMAL TRICUSPID VALVE: MODERATE TRICUPSID REGURGITATION MITRAL VALVE: MITRAL ANNULAR CALCIFICATION PULMONIC VALVE: NORMAL AORTIC VALVE: HEAVILY CALCIFIED WITH AORTIC STENOSIS PERICARDIAL EFFUSION: TRACE AORTIC ROOT: NORMAL LEFT VENTRICULAR WALL MOTION: NORMAL DOPPLER/COLOR FLOW: SEE BELOW COMMENTS: NORMAL LEFT VENTRICULAR EJECTION FRACTION 55-60%. MODERATE TO SEVERE TRICUSPID REGURGITATION. HEAVILY CALCIFIED AORTIC VALVE WITH AT LEAST MODERATE AORTIC STENOSIS AND MODERATE AORTIC INSUFFIENCY. (NEEDS FURTHER EVALUATION WITH LHC/RHC). SEVERE PULMONARY HYPERTENSION WITH RIGHT VENTRICULAR SYSTOLIC PRESSURE GREATER THAN 60 mmHg. TECHNOLOGIST: KELLY ORTEGA
--- NOTE | 2021-03-31 07:14 | TREADPHA ---
DX: CARDIAC CLEARANCE Date of Study: 03/30/2021 Ht: 5' 1 " Wt: 102 lb 0 oz Consulting Physician: SHAWN MEDICATIONS: ZOFRAN, MORPHINE HISTORY: PHYSICIAL EXAMINATION: RESTING B.P.: 145/66 RESTING H.R.: 61 RESTING EKG: ATRIAL FIBRILLATION WITH LEFT BUNDLE BRANCH BLOCK PROTOCOL: PHARMACOLOGIC EXERCISE TIME: 3:30 B.P. AT PEAK STRESS: 145/65 IMPRESSION: LEXISCAN INJECTED. CARDIOLITE INJECTED (SEE NUCLEAR MEDICINE REPORT). NO SUPRAVENTRICULAR TACHYCARDIA/ VENTRICULAR TACHYCARDIA. NO COMPLAINTS OF CHEST PAIN OR SHORTNESS OF BREATH. COMPLAINTS OF NAUSEA THROUGHOUT TEST. CONSTANT ARRHYTHMIA (ATRIAL FIBRILLATION). NO ELECTROCARDIOGRAM CHANGES WITH LEXISCAN.
[2021-03-31 10:39] LABS: Protime INR 1.19
[2021-03-31] MEDS ORDERED: FENTANYL CITR 100 MCG/2 ML ONE (11:59)
[2021-03-31] MEDS ORDERED: ETOMIDATE 20 MG/10 ML VIAL IV ONE (11:59)
[2021-03-31] MEDS ORDERED: EPHEDRINE SULF 50 MG/ML VIAL ONE (12:02)
[2021-03-31] MEDS ORDERED: Ringers Lactate 1,000 ML IV ONE (12:09)
[2021-03-31] MEDS ORDERED: CEFAZOLIN/NS 1gm 1 GM/50 ML BAG ONE (12:13)
--- NOTE | 2021-03-31 12:26 | P.PN ---
Subjective Date of Service: 03/31/21 Primary Care Provider: Chidi Chief Complaint: Left hip fracture in or waiting for surgery Review of Systems 10-point ROS is otherwise unremarkable Physical Examination - Vital Signs Temperature: 97.0 F Blood Pressure: 147/85 Pulse: 64 Respirations: 16 Pulse Ox (%): 93 - Physical Exam General: Alert, In no apparent distress HEENT: Atraumatic, PERRLA, EOMI Neck: Supple, JVD not distended Respiratory: Clear to auscultation bilaterally, Normal air movement Cardiovascular: Regular rate/rhythm, Normal S1 S2 Gastrointestinal: Normal bowel sounds, No tenderness Musculoskeletal: No tenderness Integumentary: No rashes Neurological: Normal speech, Normal tone, Normal affect Lymphatics: No axilla or inguinal lymphadenopathy Assessment & Plan - Problems (Diagnosis) (1) Closed left hip fracture Current Visit: Yes Status: Acute Plan: Will need cardiac clearance due to her bradycardia. Plans for screws with Dr Peguero. May be able to get cardiac clearance tomorrow and possible surgery on Tuesday. had a stress test for clearance. Will consult with . Hopefully we can have surgery on Tuesday Qualifiers: Encounter type: initial encounter Qualified Code(s): S72.002A - Fracture of unspecified part of neck of left femur, initial encounter for closed fracture (2) Atrial fibrillation Current Visit: No Status: Acute Plan: she currently is bradycardic. Will consult Dr. Brice. Avoid beta priscilla. Will also get an echocardiogram Qualifiers: Atrial fibrillation type: longstanding persistent Qualified Code(s): I48.11 - Longstanding persistent atrial fibrillation (3) Hyperlipidemia Current Visit: Yes Status: Chronic Plan: will check lipids and reorder atorvastain Qualifiers: Hyperlipidemia type: moderate mixed hyperlipidemia not requiring statin therapy Qualified Code(s): E78.2 - Mixed hyperlipidemia (4) Urinary incontinence Current Visit: Yes Status: Acute Plan: will restart her oxybutrin in the morning Discharge Plan: Home Plan to discharge in: Greater than 2 days - Code Status/Comfort Care Code Status Assessed: No Physician Review: Patient Assessed, Agree with Above Assessment and Plan Critical Care: No Time Spent Managing Pts Care (In Minutes): 25
[2021-03-31] MEDS ORDERED: EPINEPHRINE/PF 1 MG/ML AMP ONE (12:35)
[2021-03-31] MEDS ORDERED: GLYCOPYRROLATE 0.2 MG/ML SYR ONE (12:35)
[2021-03-31] MEDS ORDERED: RIVAROXABAN 20 MG TABLET PO SCH (13:00)
[2021-03-31] MEDS ORDERED: ESMOLOL HCL 10 ML IV ONE (13:04)
--- NOTE | 2021-03-31 14:07 | RAD REPORT ---
EXAM DESCRIPTION: RAD - Hip In Or - 03/31/2021 1:35 pm CLINICAL HISTORY: HIP PINNING COMPARISON: Pelvis dated 12/06/2016; Hip Left Wo Con dated 03/28/2021; Hip Left 2 View dated 03/28/20 21 FINDINGS/IMPRESSION: Three intraoperative fluoroscopic images were submitted showing placement of se veral cephalomedullary screws. Total fluoro time: 0.9 minutes
[2021-03-31] MEDS: RIVAROXABAN 20 MG TABLET PO SCH (17:14)
[2021-03-31] MEDS ORDERED: NITROGLYCERIN 0.4 MG/TAB SL ONE (19:19)
--- NOTE | 2021-03-31 21:35 | OP ---
Date of Procedure: 03/31/2021 Surgeon: Anthony Peguero MD Postoperative Diagnosis: Left hip femoral neck fracture, which is nondisplaced. Postoperative Diagnosis: Left hip femoral neck fracture, which is nondisplaced. Procedure Performed: Left hip closed reduction and screw fixation. Estimated Blood Loss: 10 cc. Complications: No complications. Specimens: No pathology specimens sent. Indications For Operation: Ms. Martin is an 85-year-old who unfortunately fell injuring her left low er extremity. She was seen and examined in the Emergency Department where x-rays were fairly non-rev ealing; however, she had a CT scan, which demonstrates a fracture of the femoral neck at the most sup erior aspect. Risks, benefits, and alternatives to different methods of treating this were discussed with the patient's family. They state they understand things as presented and wished to proceed. Description Of Procedure: The patient was taken to the operating room and placed in supine position. General anesthesia was obtained by staff. Following this, she was then placed on the fracture tabl e in very carefully position. After this, her C-arm was brought in to ensure good AP and lateral vie ws and the left lower extremity was then prepped and draped in the usual sterile fashion procedure. After this, the correct position for placement of screws was marked and a vertical incision was made carefully through skin and fascia. This allowed for placement of a pin. The initial pin was the mos t inferior pin and it was placed to appropriate level using AP and lateral x-rays. After this, the r emaining 2 pins were then placed using the aiming guide. These were all checked under biplanar C-arm radiography to ensure correct placement and not penetrating the head. After this, they were measure d and appropriate size screws were placed in each. After this, the wound was irrigated and the fasci a closed in a watertight fashion using heavy Vicryl sutures, followed by closure of the skin using 2- 0 Vicryl and dony. The patient was then placed in a well-padded dressing, awakened, and taken to recovery room in good condition. /HALEYL Voice ID: [id number] Report ID: [id number]
[2021-04-01] MEDS: ACETAMINOPHEN 500 MG TAB PO SCH ×4 (00:22→17:15)
[2021-04-01] MEDS: HYDROMORPHONE HCL 0.5 MG/0.5 ML INJ IV PRN ×2 (04:58→21:16)
[2021-04-01] MEDS: NA CHLORIDE 0.9% 1,000 ML IV SCH (05:12)
[2021-04-01 06:08] LABS: Absolute Lymphocytes (CBC) 0.9 K/uL (0.7-4.9); Basophils % 0.4 % (0-1.3); Hematocrit 40.2 % (36.0-45.0); Lymphocytes % 9.8 % (15.3-44.8); MPV 8.5 fL (7.6-11.3); RBC Red Blood Cell Count 4.13 M/uL (3.86-4.86)
[2021-04-01 06:38] LABS: ALT/SGPT 19 U/L (12-78); AST/SGOT 25 U/L (15-37); Albumin 2.8 g/dL (3.4-5.0); Alkaline Phosphatase 67 U/L (45-117); BUN Blood Urea Nitrogen 10 mg/dL (7-18); Bicarbonate 23 mmol/L (21-32); Bilirubin Total 1.2 mg/dL (0.2-1.0); Glucose Level 107 mg/dL (74-106); Potassium 3.4 mmol/L (3.5-5.1); Protein, Total 6.3 g/dL (6.4-8.2); Sodium Level 138 mmol/L (136-145)
[2021-04-01] MEDS: RIVAROXABAN 20 MG TABLET PO SCH (08:08)
[2021-04-01] MEDS: BISACODYL E.C. 5 MG TAB PO PRN (08:08)
[2021-04-01] MEDS ORDERED: AMIODARONE HCL 150 MG/3 ML INJ IV ONE (12:09)
[2021-04-01] MEDS ORDERED: NITROGLYCERIN 0.4 MG/TAB SL PRN (12:46)
--- NOTE | 2021-04-01 12:49 | P.PN ---
Subjective Date of Service: 04/01/21 Primary Care Provider: Chidi Chief Complaint: Left hip fracture Subjective: No new changes in or waiting for surgery Review of Systems 10-point ROS is otherwise unremarkable General: Weakness Physical Examination - Vital Signs Temperature: 97.8 F Blood Pressure: 145/65 Pulse: 71 Respirations: 18 Pulse Ox (%): 94 - Physical Exam General: Alert, In no apparent distress HEENT: Atraumatic, PERRLA, EOMI Neck: Supple, JVD not distended Respiratory: Clear to auscultation bilaterally, Normal air movement Cardiovascular: Regular rate/rhythm, Normal S1 S2 Gastrointestinal: Normal bowel sounds, No tenderness Musculoskeletal: No tenderness Integumentary: No rashes Neurological: Normal speech, Normal tone, Normal affect Lymphatics: No axilla or inguinal lymphadenopathy Assessment & Plan - Problems (Diagnosis) (1) Closed left hip fracture Current Visit: Yes Status: Acute Plan: Will need cardiac clearance due to her bradycardia. Plans for screws with Dr Peguero. May be able to get cardiac clearance tomorrow and possible surgery on Tuesday. had a stress test for clearance. Will consult with . Hopefully we can have surgery on Tuesday Qualifiers: Encounter type: initial encounter Qualified Code(s): S72.002A - Fracture of unspecified part of neck of left femur, initial encounter for closed fracture (2) Atrial fibrillation Current Visit: No Status: Acute Plan: she currently is bradycardic. Will consult Dr. Brice. Avoid beta priscilla. W ill also get an echocardiogram Qualifiers: Atrial fibrillation type: longstanding persistent Qualified Code(s): I48.11 - Longstanding persistent atrial fibrillation (3) Hyperlipidemia Current Visit: Yes Status: Chronic Plan: will check lipids and reorder atorvastain Qualifiers: Hyperlipidemia type: moderate mixed hyperlipidemia not requiring statin therapy Qualified Code(s): E78.2 - Mixed hyperlipidemia (4) Urinary incontinence Current Visit: Yes Status: Acute Plan: will restart her oxybutrin in the morning Qualifiers: Urinary Incontinence type: urge incontinence Qualified Code(s): N39.41 - Urge incontinence Discharge Plan: Home Plan to discharge in: 24 Hours - Code Status/Comfort Care Code Status Assessed: No Physician Review: Patient Assessed, Agree with Above Assessment and Plan Critical Care: No Time Spent Managing Pts Care (In Minutes): 20
--- NOTE | 2021-04-01 17:00 | EKG ---
Test Date: 2021-03-31 Test Time: 13:27:38 Fire Investigator: SYBIL MEASUREMENT RESULTS: Intervals: Rate: 92 CO: QRSD: 140 QT: 438 QTc: [address] [place]: P: CO: QRS: -46 T: 127 INTERPRETIVE STATEMENTS: Atrial fibrillation Left axis deviation Left bundle branch block Abnormal ECG Compared to ECG 03/29/2021 03:42:40 No significant changes Electronically Signed On 04-01-21 16:57:16 CATTERY OPERATOR by Ken Brice
[2021-04-01] MEDS: OXYBUTYNIN CHLORIDE 5 MG TAB PO SCH (21:16)
[2021-04-01] MEDS: ROSUVASTATIN 10 MG TAB PO SCH (21:16)
[2021-04-02] MEDS: ACETAMINOPHEN 500 MG TAB PO SCH ×5 (00:09→23:26)
[2021-04-02 06:19] LABS: Absolute Lymphocytes (CBC) 1.3 K/uL (0.7-4.9); Basophils % 0.4 % (0-1.3); Hematocrit 39.6 % (36.0-45.0); Lymphocytes % 16.8 % (15.3-44.8); MPV 8.1 fL (7.6-11.3); RBC Red Blood Cell Count 4.08 M/uL (3.86-4.86)
[2021-04-02 06:32] LABS: ALT/SGPT 25 U/L (12-78); AST/SGOT 26 U/L (15-37); Albumin 2.9 g/dL (3.4-5.0); Alkaline Phosphatase 69 U/L (45-117); BUN Blood Urea Nitrogen 8 mg/dL (7-18); Bicarbonate 26 mmol/L (21-32); Bilirubin Total 1.7 mg/dL (0.2-1.0); Glucose Level 103 mg/dL (74-106); Potassium 3.4 mmol/L (3.5-5.1); Protein, Total 6.6 g/dL (6.4-8.2); Sodium Level 140 mmol/L (136-145)
[2021-04-02] MEDS: RIVAROXABAN 20 MG TABLET PO SCH (08:02)
[2021-04-02] MEDS: OXYBUTYNIN CHLORIDE 5 MG TAB PO SCH ×2 (08:02→20:13)
[2021-04-02] MEDS: PANTOPRAZOLE 40MG TABLET PO SCH (08:02)
[2021-04-02] MEDS: BISACODYL E.C. 5 MG TAB PO PRN (08:02)
[2021-04-02] MEDS ORDERED: HOME MED 1 EA UNK (Omeprazole [Prilosec] 40 MG Capsule.Dr) PO SCH (09:00)
--- NOTE | 2021-04-02 11:23 | P.PN ---
Subjective Date of Service: 04/02/21 Primary Care Provider: Chidi Chief Complaint: Left hip fracture Subjective: Improving in or waiting for surgery Review of Systems 10-point ROS is otherwise unremarkable Physical Examination - Vital Signs Temperature: 98.2 F Blood Pressure: 129/68 Pulse: 83 Respirations: 18 Pulse Ox (%): 96 - Physical Exam General: Alert, In no apparent distress HEENT: Atraumatic, PERRLA, EOMI Neck: Supple, JVD not distended Respiratory: Clear to auscultation bilaterally, Normal air movement Cardiovascular: Regular rate/rhythm, Normal S1 S2 Gastrointestinal: Normal bowel sounds, No tenderness Musculoskeletal: No tenderness Integumentary: No rashes Neurological: Normal speech, Normal tone, Normal affect Lymphatics: No axilla or inguinal lymphadenopathy Assessment & Plan - Problems (Diagnosis) (1) Closed left hip fracture Current Visit: Yes Status: Acute Plan: Will need cardiac clearance due to her bradycardia. Plans for screws with Dr Peguero. May be able to get cardiac clearance tomorrow and possible surgery on Tuesday. 04/02 awaiting snf or rehabp placement. [facility] wants [facility] [place] Qualifiers: Encounter type: initial encounter Qualified Code(s): S72.002A - Fracture of unspecified part of neck of left femur, initial encounter for closed fracture (2) Atrial fibrillation Current Visit: No Status: Acute Plan: she currently is bradycardic. Will consult Dr. Brice. Avoid beta priscilla. Will also get an echocardiogram Qualifiers: Atrial fibrillation type: longstanding persistent Qualified Code(s): I48.11 - Longstanding persistent atrial fibrillation (3) Hyperlipidemia Current Visit: Yes Status: Chronic Plan: will check lipids and reorder atorvastain Qualifiers: Hyperlipidemia type: moderate mixed hyperlipidemia not requiring statin therapy Qualified Code(s): E78.2 - Mixed hyperlipidemia (4) Urinary incontinence Current Visit: Yes Status: Acute Plan: will restart her oxybutrin in the morning Qualifiers: Urinary Incontinence type: urge incontinence Qualified Code(s): N39.41 - Urge incontinence Discharge Plan: Home Plan to discharge in: 24 Hours - Code Status/Comfort Care Code Status Assessed: No Physician Review: Patient Assessed, Agree with Above Assessment and Plan Critical Care: No Time Spent Managing Pts Care (In Minutes): 25
[2021-04-02] MEDS: HYDROMORPHONE HCL 0.5 MG/0.5 ML INJ IV PRN (14:00)
[2021-04-02] MEDS: ROSUVASTATIN 10 MG TAB PO SCH (20:13)
[2021-04-03] MEDS: ACETAMINOPHEN 500 MG TAB PO SCH ×3 (06:22→18:57)
[2021-04-03] MEDS: BISACODYL E.C. 5 MG TAB PO PRN (09:38)
[2021-04-03] MEDS: OXYBUTYNIN CHLORIDE 5 MG TAB PO SCH ×2 (10:26→20:01)
[2021-04-03] MEDS: RIVAROXABAN 20 MG TABLET PO SCH (10:26)
[2021-04-03] MEDS: PANTOPRAZOLE 40MG TABLET PO SCH (10:26)
--- NOTE | 2021-04-03 12:18 | P.PN ---
Subjective Date of Service: 04/03/21 Subjective: No new changes, No C/O voiced Doing well with physical therapy. He ambulated quite effectively. Doing better and waiting for [facility] rehab Review of Systems 10-point ROS is otherwise unremarkable Physical Examination - Vital Signs Temperature: 97.6 F Blood Pressure: 142/62 Pulse: 71 Respirations: 18 Pulse Ox (%): 96 - Physical Exam General: Alert, In no apparent distress, Cooperative HEENT: Atraumatic, Normocephalic Neurological: Sensation intact, Cranial nerves 3-12 intact Assessment & Plan - Problems (Diagnosis) (1) Closed left hip fracture Current Visit: Yes Status: Acute Qualifiers: Encounter type: initial encounter Qualified Code(s): S72.002A - Fracture of unspecified part of neck of left femur, initial encounter for closed fracture (2) Hyperlipidemia Current Visit: Yes Status: Chronic Qualifiers: Hyperlipidemia type: moderate mixed hyperlipidemia not requiring statin therapy Qualified Code(s): E78.2 - Mixed hyperlipidemia (3) Atrial fibrillation Current Visit: No Status: Acute Qualifiers: Atrial fibrillation type: longstanding persistent Qualified Code(s): I48.11 - Longstanding persistent atrial fibrillation (4) Neuropathy Current Visit: No Status: Acute (5) Tobacco abuse Current Visit: No Status: Acute - Plan Plan: 1. Plan to transfer to rehab once accepted. Discharge Plan: Other (Rehab) Plan to discharge in: Greater than 2 days - Advance Directives Does patient have a Living Will: No Does patient have a Durable POA for Healthcare: No - Code Status/Comfort Care Code Status: Full Code Physician Review: Patient Assessed, Agree with Above Assessment and Plan Critical Care: No Time Spent Managing PTS Care (In Minutes): 35
[2021-04-03] MEDS ORDERED: MINERAL OIL 30 ML UCUP PO ONE (19:22)
[2021-04-03] MEDS: ROSUVASTATIN 10 MG TAB PO SCH (20:01)
[2021-04-04] MEDS: ACETAMINOPHEN 500 MG TAB PO SCH ×4 (00:40→18:16)
[2021-04-04] MEDS ORDERED: HYDROCODONE/APAP 5/325 MG TAB PO PRN (09:17)
[2021-04-04] MEDS: PANTOPRAZOLE 40MG TABLET PO SCH (09:31)
[2021-04-04] MEDS: OXYBUTYNIN CHLORIDE 5 MG TAB PO SCH ×2 (09:31→20:28)
[2021-04-04] MEDS: RIVAROXABAN 20 MG TABLET PO SCH (09:32)
--- NOTE | 2021-04-04 12:12 | P.PN ---
Subjective Date of Service: 04/04/21 Primary Care Provider: Chidi Chief Complaint: Left hip fracture Patient has no complaints. She states her pain is well controlled. Patient has been up with physical therapy. Blood pressure moderately elevated this morning. Patient states her blood pressure usually runs on the low side. Physical Examination - Vital Signs Temperature: 97.7 F Blood Pressure: 139/59 Pulse: 65 Respirations: 16 Pulse Ox (%): 97 - Physical Exam General: Alert, In no apparent distress, Oriented x3 HEENT: Mucous membr. moist/pink Neck: JVD not distended Respiratory: Clear to auscultation bilaterally, Normal air movement Cardiovascular: No edema, Regular rate/rhythm, Normal S1 S2 Gastrointestinal: Soft and benign, Non-distended, No tenderness Musculoskeletal: No swelling Integumentary: Other (Bruise posterior aspect of left thigh.) Neurological: Other (No focal motor deficit) Assessment And Plan - Current Problems (Diagnosis) (1) Abnormal stress test Current Visit: Yes Status: Acute (2) Closed left hip fracture Current Visit: Yes Status: Acute Qualifiers: Encounter type: initial encounter Qualified Code(s): S72.002A - Fracture of unspecified part of neck of left femur, initial encounter for closed fracture (3) Hyperlipidemia Current Visit: Yes Status: Chronic Qualifiers: Hyperlipidemia type: moderate mixed hyperlipidemia not requiring statin therapy Qualified Code(s): E78.2 - Mixed hyperlipidemia (4) Atrial fibrillation Current Visit: No Status: Acute Qualifiers: Atrial fibrillation type: longstanding persistent Qualified Code(s): I48.11 - Longstanding persistent atrial fibrillation (5) Neuropathy Current Visit: No Status: Acute - Plan Patient is clinically stable. Pain management as needed-IV morphine and House as needed. Daughter states patient has been relying on Tylenol. Continue PT. A. fib is rate controlled. Cardiology to follow regarding abnormal stress test. Patient is on anticoagulation for DVT and atrial fibrillation. Monitor hemoglobin and electrolytes.
[2021-04-04] MEDS: ENSURE ENLIVE 237 ML CAN PO SCH (18:19)
[2021-04-04] MEDS: ROSUVASTATIN 10 MG TAB PO SCH (20:28)
[2021-04-05] MEDS: ACETAMINOPHEN 500 MG TAB PO SCH ×5 (01:29→23:53)
[2021-04-05 07:01] LABS: BUN Blood Urea Nitrogen 17 mg/dL (7-18); Bicarbonate 25 mmol/L (21-32); Glucose Level 100 mg/dL (74-106); Potassium 3.7 mmol/L (3.5-5.1); Sodium Level 140 mmol/L (136-145)
[2021-04-05 07:12] LABS: Absolute Lymphocytes (CBC) 1.4 K/uL (0.7-4.9); Basophils % 0.6 % (0-1.3); Hematocrit 39.1 % (36.0-45.0); MPV 8.3 fL (7.6-11.3); RBC Red Blood Cell Count 4.01 M/uL (3.86-4.86)
[2021-04-05] MEDS: OXYBUTYNIN CHLORIDE 5 MG TAB PO SCH ×2 (09:08→20:30)
[2021-04-05] MEDS: PANTOPRAZOLE 40MG TABLET PO SCH (09:08)
[2021-04-05] MEDS: RIVAROXABAN 20 MG TABLET PO SCH (09:08)
--- NOTE | 2021-04-05 12:41 | P.PN ---
Subjective Date of Service: 04/05/21 Primary Care Provider: Chidi Chief Complaint: Left hip fracture Patient has no complaints. She states her pain is well controlled. She desires to go home rather than go to inpatient rehab. She is currently normotensive. Physical Examination - Vital Signs Temperature: 98.2 F Blood Pressure: 128/60 Pulse: 88 Respirations: 16 Pulse Ox (%): 97 - Physical Exam General: Alert, In no apparent distress, Oriented x3 HEENT: Mucous membr. moist/pink Neck: JVD not distended Respiratory: Clear to auscultation bilaterally, Normal air movement Cardiovascular: No edema, Regular rate/rhythm, Normal S1 S2 Gastrointestinal: Soft and benign, Non-distended, No tenderness Musculoskeletal: No swelling Integumentary: No rashes, No breakdown Neurological: Normal strength at 5/5 x4 extr Assessment And Plan - Current Problems (Diagnosis) (1) Abnormal stress test Current Visit: Yes Status: Acute (2) Closed left hip fracture Current Visit: Yes Status: Acute Qualifiers: Encounter type: initial encounter Qualified Code(s): S72.002A - Fracture of unspecified part of neck of left femur, initial encounter for closed fracture (3) Hyperlipidemia Current Visit: Yes Status: Chronic Qualifiers: Hyperlipidemia type: moderate mixed hyperlipidemia not requiring statin therapy Qualified Code(s): E78.2 - Mixed hyperlipidemia (4) Atrial fibrillation Current Visit: No Status: Acute Qualifiers: Atrial fibrillation type: longstanding persistent Qualified Code(s): I48.11 - Longstanding persistent atrial fibrillation (5) Neuropathy Current Visit: No Status: Acute - Plan Patient is clinically stable. Pain management as needed with IV morphine and [place] as needed. Daughter states patient has been relying on Tylenol. Continue PT. A. fib is rate controlled. She is normotensive Cardiology to follow regarding abnormal stress test. Patient is on anticoagulation for DVT and atrial fibrillation. Hemoglobin has been stable. Physician Review: Patient Assessed, Agree with Above Assessment and Plan
[2021-04-05] MEDS: ENSURE ENLIVE 237 ML CAN PO SCH (17:44)
[2021-04-05] MEDS: ROSUVASTATIN 10 MG TAB PO SCH (20:30)
[2021-04-06] MEDS: ACETAMINOPHEN 500 MG TAB PO SCH ×4 (06:19→23:39)
--- NOTE | 2021-04-06 08:18 | P.PN ---
Subjective Date of Service: 04/06/21 Primary Care Provider: Chidi Chief Complaint: Left hip fracture Subjective: No new changes in or waiting for surgery Review of Systems 10-point ROS is otherwise unremarkable Physical Examination - Vital Signs Temperature: 97.1 F Blood Pressure: 135/62 Pulse: 58 Respirations: 16 Pulse Ox (%): 90 - Physical Exam General: Alert, In no apparent distress HEENT: Atraumatic, PERRLA, EOMI Neck: Supple, JVD not distended Respiratory: Clear to auscultation bilaterally, Normal air movement Cardiovascular: Regular rate/rhythm, Normal S1 S2 Gastrointestinal: Normal bowel sounds, No tenderness Musculoskeletal: No tenderness Integumentary: No rashes Neurological: Normal speech, Normal tone, Normal affect Lymphatics: No axilla or inguinal lymphadenopathy Assessment & Plan - Problems (Diagnosis) (1) Closed left hip fracture Current Visit: Yes Status: Acute Plan: Will need cardiac clearance due to her bradycardia. Plans for screws with Dr Peguero. May be able to get cardiac clearance tomorrow and possible surgery on Tuesday. 04/02 awaiting snf or rehabp placement. [facility] wants [facility] [place] Qualifiers: Encounter type: initial encounter Qualified Code(s): S72.002A - Fracture of unspecified part of neck of left femur, initial encounter for closed fracture (2) Atrial fibrillation Current Visit: No Status: Acute Plan: she currently is bradycardic. Will consult Dr. Brice. Avoid beta priscilla. Will also get an echocardiogram Qualifiers: Atrial fibrillation type: longstanding persistent Qualified Code(s): I48.11 - Longstanding persistent atrial fibrillation (3) Hyperlipidemia Current Visit: Yes Status: Chronic Plan: will check lipids and reorder atorvastain Qualifiers: Hyperlipidemia type: moderate mixed hyperlipidemia not requiring statin therapy Qualified Code(s): E78.2 - Mixed hyperlipidemia (4) Urinary incontinence Current Visit: Yes Status: Acute Plan: will restart her oxybutrin in the morning Qualifiers: Urinary Incontinence type: urge incontinence Qualified Code(s): N39.41 - Urge incontinence Discharge Plan: Home Plan to discharge in: 24 Hours - Code Status/Comfort Care Code Status Assessed: No Physician Review: Patient Assessed, Agree with Above Assessment and Plan Critical Care: No Time Spent Managing Pts Care (In Minutes): 25
[2021-04-06] MEDS: PANTOPRAZOLE 40MG TABLET PO SCH (09:19)
[2021-04-06] MEDS: RIVAROXABAN 20 MG TABLET PO SCH (09:19)
[2021-04-06] MEDS: OXYBUTYNIN CHLORIDE 5 MG TAB PO SCH ×2 (09:19→20:24)
--- NOTE | 2021-04-06 09:40 | CON ---
Date of Consultation: 03/29/2021 Reason For Consultation: Cardiac clearance for left hip surgery. History Of Present Illness: Ms. Martin is 85. Has a history of atrial fibrillation on Xarelto, rate controlled. She has a history of dyslipidemia and gastroesophageal reflux disease. Comes in with l eft hip fracture. No cardiac symptoms. Normal x-ray and normal labs. EKG showed a heart rate of 50 . She is not on any beta-priscilla or calcium priscilla, but has no cardiac symptoms. Past Medical History: As stated above. Allergies: SHE IS ALLERGIC TO LATEX. Review of Systems: Negative. Social History: Negative. Family History: Negative. Medications: At home include Prilosec, Xarelto, and Crestor. Physical Examination: Vital Signs: Heart rate was 47. No acute distress. Vital signs are stable, afebrile. HEENT: Negative. Neck: Supple with no bruit. Chest: Clear. Cardiac: Revealed atrial fibrillation. No murmurs, gallops, or rubs. Abdomen: Benign. Extremities: Revealed no clubbing, cyanosis, or edema. She has a left hip fracture. Impression And Plan: Atrial fibrillation, low heart rate. I think we need to hold her Xarelto. I t hink her heart rate is chronically low. She is not on calcium priscilla or beta-priscilla. She is asymp tomatic with a normal blood pressure. Nevertheless, she had some chest pain that is atypical and I w ould like her to get a Lexiscan and an echocardiogram before we clear her. ALINA/LUIS ANTONIO Voice ID: [id number] Report ID: [id number]
--- NOTE | 2021-04-06 15:36 | PN ---
Date of Progress Note: 03/30/2021 The patient was actually seen for preop clearance, admitted to Dr. Murillo. I had recommended an echoc ardiogram and Lexiscan. The reason for that was atypical chest pain and bradycardia with her atrial fibrillation. Her stress test showed no evidence of ischemia and her echocardiogram showed an ejecti on fraction of 52% with aortic sclerosis, but no stenosis, but she did have severe pulmonary hyperten jesus alberto. She is cleared for surgery. We will follow her aortic sclerosis and moderate stenosis as an o utpatient along with her atrial fibrillation in the near future after she leaves from the hospital. ALINA/LUIS ANTONIO Voice ID: [id number] Report ID: [id number]
[2021-04-06 16:40] LABS: Urine Appearance Clear (Clear); Urine Bilirubin Negative (Negative); Urine Blood Trace-intact (Negative); Urine Color Yellow (Yellow); Urine Glucose Negative (Negative); Urine Protein Negative (Negative); Urine Specific Gravity 1.015 (1.005-1.030); Urine pH 7.5 (5.0-7.0)
[2021-04-06 16:52] LABS: Urine Microscopic Reflex ORDER UMIC
[2021-04-06 17:35] LABS: Urine Bacteria <20 /HPF (<20); Urine RBC <5 /HPF (NONE SEEN)
[2021-04-06] MEDS: ENSURE ENLIVE 237 ML CAN PO SCH (18:02)
[2021-04-06] MEDS: ROSUVASTATIN 10 MG TAB PO SCH (20:24)
[2021-04-07] MEDS: ACETAMINOPHEN 500 MG TAB PO SCH ×3 (05:09→17:34)
[2021-04-07] MEDS: PANTOPRAZOLE 40MG TABLET PO SCH (08:57)
[2021-04-07] MEDS: OXYBUTYNIN CHLORIDE 5 MG TAB PO SCH ×2 (08:58→21:07)
[2021-04-07] MEDS: RIVAROXABAN 20 MG TABLET PO SCH (08:58)
--- NOTE | 2021-04-07 11:06 | P.PN ---
Subjective Date of Service: 04/07/21 Primary Care Provider: Chidi Chief Complaint: Left hip fracture Patient is awaiting insurance approval with ltac placement Review of Systems 10-point ROS is otherwise unremarkable Physical Examination - Vital Signs Temperature: 98.0 F Blood Pressure: 135/66 Pulse: 62 Respirations: 18 Pulse Ox (%): 97 - Physical Exam General: Alert, In no apparent distress HEENT: Atraumatic, PERRLA, EOMI Neck: Supple, JVD not distended Respiratory: Clear to auscultation bilaterally, Normal air movement Cardiovascular: Regular rate/rhythm, Normal S1 S2 Gastrointestinal: Normal bowel sounds, No tenderness Musculoskeletal: No tenderness Integumentary: No rashes Neurological: Normal speech, Normal tone, Normal affect Lymphatics: No axilla or inguinal lymphadenopathy Assessment & Plan - Problems (Diagnosis) (1) Closed left hip fracture Current Visit: Yes Status: Acute Plan: Will need cardiac clearance due to her bradycardia. Plans for screws with Dr Peguero. May be able to get cardiac clearance tomorrow and possible surgery on Tuesday. 04/07 awaiting snf or rehabp placement. [facility] [place] Qualifiers: Encounter type: initial encounter Qualified Code(s): S72.002A - Fracture of unspecified part of neck of left femur, initial encounter for closed fracture (2) Atrial fibrillation Current Visit: No Status: Acute Plan: she currently is bradycardic. Will consult Dr. Brice. Avoid beta priscilla. Will also get an echocardiogram Qualifiers: Atrial fibrillation type: longstanding persistent Qualified Code(s): I48.11 - Longstanding persistent atrial fibrillation (3) Hyperlipidemia Current Visit: Yes Status: Chronic Plan: will check lipids and reorder atorvastain Qualifiers: Hyperlipidemia type: moderate mixed hyperlipidemia not requiring statin therapy Qualified Code(s): E78.2 - Mixed hyperlipidemia (4) Urinary incontinence Current Visit: Yes Status: Acute Plan: will restart her oxybutrin in the morning Qualifiers: Urinary Incontinence type: urge incontinence Qualified Code(s): N39.41 - Urge incontinence Discharge Plan: LTAC Plan to discharge in: 24 Hours Physician Review: Patient Assessed, Agree with Above Assessment and Plan Critical Care: No Time Spent Managing Pts Care (In Minutes): 20
[2021-04-07] MEDS: ENSURE ENLIVE 237 ML CAN PO SCH (17:30)
[2021-04-07] MEDS: ROSUVASTATIN 10 MG TAB PO SCH (21:07)
[2021-04-08] MEDS: ACETAMINOPHEN 500 MG TAB PO SCH ×4 (00:01→18:05)
[2021-04-08] MEDS: PANTOPRAZOLE 40MG TABLET PO SCH (08:58)
[2021-04-08] MEDS: RIVAROXABAN 20 MG TABLET PO SCH (08:59)
[2021-04-08] MEDS: OXYBUTYNIN CHLORIDE 5 MG TAB PO SCH ×2 (09:00→21:14)
--- NOTE | 2021-04-08 09:18 | P.PN ---
Subjective Date of Service: 04/08/21 Primary Care Provider: Chidi Chief Complaint: Left hip fracture daughter in the room. Holding out for [facility] Review of Systems 10-point ROS is otherwise unremarkable Physical Examination - Vital Signs Temperature: 97.1 F Blood Pressure: 168/66 Pulse: 58 Respirations: 18 Pulse Ox (%): 98 - Physical Exam General: Alert, In no apparent distress HEENT: Atraumatic, PERRLA, EOMI Neck: Supple, JVD not distended Respiratory: Clear to auscultation bilaterally, Normal air movement Cardiovascular: Regular rate/rhythm, Normal S1 S2 Gastrointestinal: Normal bowel sounds, No tenderness Musculoskeletal: No tenderness Integumentary: No rashes Neurological: Normal speech, Normal tone, Normal affect Lymphatics: No axilla or inguinal lymphadenopathy Assessment & Plan - Problems (Diagnosis) (1) Discharge planning issues Current Visit: Yes Status: Acute Plan: daughter in the room. She wants [facility]. Which I have discussed with her insurance. They have denied LTAC and will only approve snf. Trying to appeal it would not have a different result. The patient's daughter does not want a snf in [place]. She has heard problem stories from every one that we have offered. Have discussed with her that taking her at home is not [place]. Mrs Lr is already taking care of her invalid . I have been to the house. Many tripping hazards for a patient with a recently broken hip. Discussed the need for a few weeks of PT. Mrs Martin has been doing quite well with the hospital PT. She is motivated. I believe a short course in the SNF would be very good and she will be able to go live alone safely very easily. (2) Closed left hip fracture Current Visit: Yes Status: Acute Plan: Will need cardiac clearance due to her bradycardia. Plans for screws with Dr Peguero. May be able to get cardiac clearance tomorrow and possible surgery on Tuesday. 04/07 awaiting snf or rehabp placement. Family wants [facility] [place] Qualifiers: Encounter type: initial encounter Qualified Code(s): S72.002A - Fracture of unspecified part of neck of left femur, initial encounter for closed fracture (3) Atrial fibrillation Current Visit: No Status: Acute Plan: she currently is bradycardic. Will consult Dr. Brice. Avoid beta priscilla. Will also get an echocardiogram Qualifiers: Atrial fibrillation type: longstanding persistent Qualified Code(s): I48.11 - Longstanding persistent atrial fibrillation (4) Hyperlipidemia Current Visit: Yes Status: Chronic Plan: will check lipids and reorder atorvastain Qualifiers: Hyperlipidemia type: moderate mixed hyperlipidemia not requiring statin therapy Qualified Code(s): E78.2 - Mixed hyperlipidemia (5) Urinary incontinence Current Visit: Yes Status: Acute Plan: will restart her oxybutrin in the morning Qualifiers: Urinary Incontinence type: urge incontinence Qualified Code(s): N39.41 - Urge incontinence Discharge Plan: Long-Term Plan to discharge in: 24 Hours - Code Status/Comfort Care Code Status Assessed: No Physician Review: Patient Assessed, Agree with Above Assessment and Plan Critical Care: No Time Spent Managing Pts Care (In Minutes): 30
[2021-04-08] MEDS: ENSURE ENLIVE 237 ML CAN PO SCH (18:05)
[2021-04-08] MEDS: ROSUVASTATIN 10 MG TAB PO SCH (21:14)
[2021-04-09] MEDS: ACETAMINOPHEN 500 MG TAB PO SCH ×4 (00:22→17:59)
[2021-04-09] MEDS: PANTOPRAZOLE 40MG TABLET PO SCH (09:55)
[2021-04-09] MEDS: BISACODYL E.C. 5 MG TAB PO PRN (09:55)
[2021-04-09] MEDS: RIVAROXABAN 20 MG TABLET PO SCH (09:55)
[2021-04-09] MEDS: OXYBUTYNIN CHLORIDE 5 MG TAB PO SCH ×2 (09:55→21:22)
--- NOTE | 2021-04-09 10:45 | P.PN ---
Subjective Date of Service: 04/09/21 Primary Care Provider: Chidi Chief Complaint: Left hip fracture plans for snf. The patient has difficulty with touch down weight Review of Systems 10-point ROS is otherwise unremarkable Physical Examination - Vital Signs Temperature: 97.4 F Blood Pressure: 134/64 Pulse: 58 Respirations: 16 Pulse Ox (%): 98 - Physical Exam General: Alert, In no apparent distress HEENT: Atraumatic, PERRLA, EOMI Neck: Supple, JVD not distended Respiratory: Clear to auscultation bilaterally, Normal air movement Cardiovascular: Regular rate/rhythm, Normal S1 S2 Gastrointestinal: Normal bowel sounds, No tenderness Musculoskeletal: No tenderness Integumentary: No rashes Neurological: Normal speech, Normal tone, Normal affect Lymphatics: No axilla or inguinal lymphadenopathy Assessment & Plan - Problems (Diagnosis) (1) Discharge planning issues Current Visit: Yes Status: Acute Plan: daughter in the room. She wants [facility]. Which I have discussed with her insurance. They have denied LTAC and will only approve snf. Trying to appeal it would not have a different result. The patient's daughter does not want a snf in a longterm. She has heard problem stories from every one that we have offered. Have discussed with her that taking her at home is not [place]. Mrs Lr is already taking care of her invalid . I have been to the house. Many tripping hazards for a patient with a recently broken hip. Discussed the need for a few weeks of PT. Mrs Martin has been doing quite well with the hospital PT. She is motivated. I believe a short course in the SNF would be very good and she will be able to go live alone safely very easily. (2) Closed left hip fracture Current Visit: Yes Status: Acute Plan: Will need cardiac clearance due to her bradycardia. Plans for screws with Dr Peguero. May be able to get cardiac clearance tomorrow and possible surgery on Tuesday. 04/07 awaiting snf or rehabp placement. Family wants [facility] in [place] Qualifiers: Encounter type: initial encounter Qualified Code(s): S72.002A - Fracture of unspecified part of neck of left femur, initial encounter for closed fracture (3) Atrial fibrillation Current Visit: No Status: Acute Plan: she currently is bradycardic. Will consult Dr. Brice. Avoid beta priscilla. Will also get an echocardiogram Qualifiers: Atrial fibrillation type: longstanding persistent Qualified Code(s): I48.11 - Longstanding persistent atrial fibrillation (4) Hyperlipidemia Current Visit: Yes Status: Chronic Plan: will check lipids and reorder atorvastain Qualifiers: Hyperlipidemia type: moderate mixed hyperlipidemia not requiring statin therapy Qualified Code(s): E78.2 - Mixed hyperlipidemia (5) Urinary incontinence Current Visit: Yes Status: Acute Plan: will restart her oxybutrin in the morning Qualifiers: Urinary Incontinence type: urge incontinence Qualified Code(s): N39.41 - Urge incontinence Discharge Plan: Home Plan to discharge in: 24 Hours - Code Status/Comfort Care Code Status Assessed: No Physician Review: Patient Assessed, Agree with Above Assessment and Plan Critical Care: No Time Spent Managing Pts Care (In Minutes): 25
[2021-04-09] MEDS: ENSURE ENLIVE 237 ML CAN PO SCH (18:03)
[2021-04-09] MEDS: ROSUVASTATIN 10 MG TAB PO SCH (21:21)
[2021-04-10] MEDS: ACETAMINOPHEN 500 MG TAB PO SCH ×5 (00:44→23:33)
[2021-04-10] MEDS: PANTOPRAZOLE 40MG TABLET PO SCH (09:03)
[2021-04-10] MEDS: RIVAROXABAN 20 MG TABLET PO SCH (09:03)
[2021-04-10] MEDS: OXYBUTYNIN CHLORIDE 5 MG TAB PO SCH ×2 (10:52→20:44)
--- NOTE | 2021-04-10 12:07 | P.PN ---
Subjective Date of Service: 04/10/21 Primary Care Provider: Chidi Chief Complaint: Left hip fracture Subjective: No new changes plans for snf. The patient has difficulty with touch down weight Review of Systems 10-point ROS is otherwise unremarkable Physical Examination - Vital Signs Temperature: 96.9 F Blood Pressure: 169/74 Pulse: 55 Respirations: 19 Pulse Ox (%): 99 - Physical Exam General: Alert, In no apparent distress HEENT: Atraumatic, PERRLA, EOMI Neck: Supple, JVD not distended Respiratory: Clear to auscultation bilaterally, Normal air movement Cardiovascular: Regular rate/rhythm, Normal S1 S2 Gastrointestinal: Normal bowel sounds, No tenderness Musculoskeletal: No tenderness Integumentary: No rashes Neurological: Normal speech, Normal tone, Normal affect Lymphatics: No axilla or inguinal lymphadenopathy Assessment & Plan - Problems (Diagnosis) (1) Discharge planning issues Current Visit: Yes Status: Acute Plan: daughter in the room. She wants [facility]. She will not pick a snf facility. It is currently under family review. (2) Closed left hip fracture Current Visit: Yes Status: Acute Plan: Will need cardiac clearance due to her bradycardia. Plans for screws with Dr Peguero. May be able to get cardiac clearance tomorrow and possible surgery on Tuesday. 04/07 awaiting snf or rehabp placement. Family wants [facility] in [place] Qualifiers: Encounter type: initial encounter Qualified Code(s): S72.002A - Fracture of unspecified part of neck of left femur, initial encounter for closed fracture (3) Atrial fibrillation Current Visit: No Status: Acute Plan: she currently is bradycardic. Will consult Dr. Brice. Avoid beta priscilla. Will also get an echocardiogram Qualifiers: Atrial fibrillation type: longstanding persistent Qualified Code(s): I48.11 - Longstanding persistent atrial fibrillation (4) Hyperlipidemia Current Visit: Yes Status: Chronic Plan: will check lipids and reorder atorvastain Qualifiers: Hyperlipidemia type: moderate mixed hyperlipidemia not requiring statin therapy Qualified Code(s): E78.2 - Mixed hyperlipidemia (5) Urinary incontinence Current Visit: Yes Status: Acute Plan: will restart her oxybutrin in the morning Qualifiers: Urinary Incontinence type: urge incontinence Qualified Code(s): N39.41 - Urge incontinence Discharge Plan: Home Plan to discharge in: 24 Hours - Code Status/Comfort Care Code Status Assessed: No Code Status: Full Code Physician Review: Patient Assessed, Agree with Above Assessment and Plan Critical Care: No Time Spent Managing Pts Care (In Minutes): 25
[2021-04-10] MEDS: ENSURE ENLIVE 237 ML CAN PO SCH (16:40)
[2021-04-10] MEDS: ROSUVASTATIN 10 MG TAB PO SCH (20:44)
[2021-04-10 21:53] VITALS: O2SAT 98
[2021-04-11] MEDS: ACETAMINOPHEN 500 MG TAB PO SCH ×2 (05:59→12:36)
[2021-04-11] MEDS: RIVAROXABAN 20 MG TABLET PO SCH (08:52)
[2021-04-11] MEDS: OXYBUTYNIN CHLORIDE 5 MG TAB PO SCH (08:52)
[2021-04-11] MEDS: PANTOPRAZOLE 40MG TABLET PO SCH (08:52)
--- NOTE | 2021-04-11 09:44 | P.DS ---
Admission Date: 03/28/21 Discharge Date: 04/11/21 Primary Care Provider: Chidi Disposition: TRANSFER TO INPATIENT REHAB Discharge Condition: GOOD Reason for Admission: Left hip fracture - Problems (1) Discharge planning issues Current Visit: Yes Status: Acute (2) Closed left hip fracture Current Visit: Yes Status: Acute Qualifiers: Encounter type: initial encounter Qualified Code(s): S72.002A - Fracture of unspecified part of neck of left femur, initial encounter for closed fracture (3) Atrial fibrillation Current Visit: No Status: Acute Qualifiers: Atrial fibrillation type: longstanding persistent Qualified Code(s): I48.11 - Longstanding persistent atrial fibrillation (4) Hyperlipidemia Current Visit: Yes Status: Chronic Qualifiers: Hyperlipidemia type: moderate mixed hyperlipidemia not requiring statin therapy Qualified Code(s): E78.2 - Mixed hyperlipidemia (5) Urinary incontinence Current Visit: Yes Status: Acute Qualifiers: Urinary Incontinence type: urge incontinence Qualified Code(s): N39.41 - Urge incontinence Brief History of Present Illness: Pleasant elderly patient who wishes to establish care. She has a history of atrial fib, urinary incontinence and hyperlipidemia. She was walking out of the [place] when she tripped and fell. She had no dizziness. No loc. No seizure activity. Was helped to her car by passer by. At home she was not able to get up and out of bed. Her daughter eventuallly brought her to the ER. She was found to have a left hip fracture. Her INR was elevated. She was also bradycardic. She has seen Dr. Brice in the past. Has had a holtor monitor( possibly). She is currently sitting in the ER bed. She does not have pain on movement. However when she moves or stands. it is a 10/10. Hospital Course: Patient came in with a left hip fracture after a fall. She was cleared by Dr. Brice. Taken to surgery and had [address] Peguero. The patient was doing well. However she had difficulty with touch down weight bearing. She had some difficulty with placement. However she was accepted to PT center. Thank you for allowing me take part in her care. Vital Signs/Physical Exam: Temp Pulse Resp BP Pulse Ox 97.1 F 66 18 152/82 H 97 04/11/21 08:00 04/11/21 08:00 04/11/21 08:00 04/11/21 08:00 04/11/21 08:00 General: Alert, In no apparent distress HEENT: Atraumatic, PERRLA, EOMI Neck: Supple, JVD not distended Respiratory: Clear to auscultation bilaterally, Normal air movement Cardiovascular: Regular rate/rhythm, Normal S1 S2 Gastrointestinal: Normal bowel sounds, No tenderness Musculoskeletal: No tenderness Integumentary: No rashes Neurological: Normal speech, Normal tone, Normal affect Lymphatics: No axilla or inguinal lymphadenopathy Laboratory Data at Discharge: WBC 6.20 K/uL (4.3-10.9) D 04/05/21 05:38 Hgb 13.0 g/dL (12.0-15.0) 04/05/21 05:38 Hct 39.1 % (36.0-45.0) 04/05/21 05:38 Plt Count 225 K/uL (152-406) D 04/05/21 05:38 PT 13.7 SECONDS (9.5-12.5) H 03/31/21 10:20 INR 1.19 03/31/21 10:20 Sodium 140 mmol/L (136-145) 04/05/21 05:38 Potassium 3.7 mmol/L (3.5-5.1) 04/05/21 05:38 BUN 17 mg/dL (7-18) 04/05/21 05:38 Creatinine 0.56 mg/dL (0.55-1.3) 04/05/21 05:38 Glucose 100 mg/dL (74-106) 04/05/21 05:38 Magnesium 2.2 mg/dL (1.8-2.4) 03/28/21 23:55 Total Bilirubin 1.7 mg/dL (0.2-1.0) H 04/02/21 06:07 AST 26 U/L (15-37) 04/02/21 06:07 ALT 25 U/L (12-78) 04/02/21 06:07 Alkaline Phosphatase 69 U/L (45-117) 04/02/21 06:07 Troponin I < 0.02 ng/mL (0.0-0.045) 03/31/21 19:35 Home Medications: Rivaroxaban [Xarelto*] 20 mg PO DAILY #30 tab 09/15/13 Nitroglycerin [Nitrostat] 0.4 mg SL PRN PRN 03/29/21 Omeprazole [Prilosec] 40 mg PO DAILY 03/29/21 Oxybutynin Chloride [Oxybutynin Chloride ER] 5 mg PO BID 03/29/21 Rosuvastatin [Crestor] 10 mg PO BEDTIME 03/29/21 Followup: Jan Murillo MD [ACTIVE - CAN ADMIT] - 1-2 Weeks Anthony Peguero MD [ACTIVE - CAN ADMIT] - 1-2 Weeks Time spent managing pt's care (in minutes): 30
[2021-04-11 12:34] VITALS: BP 135/53; TEMP 96.9
== END 2021-04-11 16:00 | DRG 481 ==
LOC: ER 21:59 → ERHOLD 23:51 → 2ND 03-29 10:56
PROVIDERS: ADMIT Internal Medicine; ATTEND Internal Medicine
PROC: 0QS734Z Reposition Left Upper Femur with Internal Fixation Device, Percutaneous Approach (ICD-10-PCS; principal; 2021-03-31 12:00)
DX: S72.002A Fracture of unspecified part of neck of left femur, initial encounter for closed fracture (principal); I48.11 Longstanding persistent atrial fibrillation; R94.39 Abnormal result of other cardiovascular function study; R00.1 Bradycardia, unspecified; E78.2 Mixed hyperlipidemia; G62.9 Polyneuropathy, unspecified; I27.20 Pulmonary hypertension, unspecified; N39.41 Urge incontinence; W01.0XXA Fall on same level from slipping, tripping and stumbling without subsequent striking against object, initial encounter; Y92.512 Supermarket, store or market as the place of occurrence of the external cause; Z79.01 Long term (current) use of anticoagulants; Z91.040 Latex allergy status; Z20.822 Contact with and (suspected) exposure to COVID-19
CPT/HCPCS: 36415; 71045; 73530; 73700; 78452; 80048; 80053; 80076; 81003; 81015; 83735; 83880; 84484; 85025; 85610; 93005; 93017; 93306; 97110; 97116; 97161; 97530; 99285; A9500; J0171; J0282; J0690; J1170; J2270; J2405; J2785; J3010; J7030; J7040; J7120; U0003

== ENCOUNTER 2022-03-12 19:01 | Emergency (ER) | payer OTHER ==
--- OUTSIDE RECORDS SUMMARY | 2022-03-12 19:09 | XMS REPORT | Continuity of Care Document ---
:1935 Author Organization [facility] t Address [address] [place] [address] Dr. Pandey. [address] [place] [address] Care Team Providers Name Role Phone MartínezRoberta Luong Primary Care Physician [phone] POLO SAMS NATASHA Attending Clinician Unavailable [id number] Attending Clinician Unavailable Amber Pollock Attending Clinician Unavailable Red Valle Attending Clinician Unavailable ZACARIAS YEUNG Attending Clinician Unavailable Jacinto Lee MD Attending Clinician JACINTO LEE Attending Clinician Unavailable Austin Begum MD Attending Clinician AUSTIN BEGUM Attending Clinician Unavailable Doctor Unassigned, [place] Attending Clinician Unavailable MITA GARCÍA Attending Clinician Unavailable POLO SAMS NATASHA Admitting Clinician Unavailable [id number] Admitting Clinician Unavailable DAISY MALCOLM Admitting Clinician Unavailable Payers Payer Name Policy Type Policy Number Effective Date Expiration Date S denise 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 Sp jabari [facility] Prediabete Prediabete Problem Active Elisha garcia s s [facility] [id number] Peripheral Problem Active Co mmon vascular [facility] disease [facility] Pain in Leg pain Problem Active Common limb [facility] [id number] Status Problem Active Common post fall [facility] Abnormalit Abnormal Problem Active Com mon y of red red cell [facility] blood [facility] cells [facility] [id number] Skin tear Problem Active Com mon of left [facility] upper [facility] extremity [facility] Current Current Problem Active Common every day every day Spir it smoker smoker [facility] Claudicati Claudicati Problem Active C ommon on on [facility] Right hip Pain in Problem Active Commo n pain right hip [facility] [id number] Weight Problem Active Common loss [facility] [id number] +5th digit Problem Active Co mmon eff Spirit 02/13/19*Ch [facility] ronic [facility] fibrillati Med[facility] on [place] [id number] Left eye Problem Active Comm on complaint [facility] [id number] Elevated Problem Active Comm on BP without Spirit diagnosis - [facility] of [facility] [id number] Routine Problem Active Commo n eye exam [facility] [id number] Hyperlipid Problem Active Com mon emia, Spirit unspecifie - [facility] [id number] Abnormal Problem Active Comm on CT scan, [facility] neck [facility] [id number] Injury of Problem Active Comm on head, [facility] initial [facility] encounter [facility] [id number] Other Problem Active Common chronic [facility] pain [facility] [id number] Bruising Problem Active Comm on [facility] [id number] Atrial Problem Active Common fibrillati Spirit on, - [facility] unspecifie [facility] [id number] Loss of Problem Active Commo n consciousn Spirit ess [facility] [id number] Swelling Problem Active Commo n [facility] [id number] Neck pain Problem Active Comm on [facility] [id number] Closed Problem Active Common fracture Spirit of neck of [facility] left femur [facility] routine [facility] Center subsequent encounter [id number] Abnormal Problem Active Comm on CBC [facility] [id number] [place] [address] left hip [facility] joint [facility] [id number] Upper back Problem Active Co mmon pain [facility] [id number] Abnormal Problem Active Comm on x-ray of [facility] neck [facility] [id number] Onychomyco Problem Active Co mmon sis [facility] [id number] Skin Problem Active Common lesions [facility] Allergies, Adverse Reactions, Alerts Allergy Allergy Status Severity Reaction(s) Onset Inactive Treating Comm ents Source Name Type Date Date Clinician RUBBER Allergy Active 2020-05 ENCCLR 06-25 07:06: 01 RUBBER Allergy Active 2020-05 ENCCLR 06-25 07:06: 01 RUBBER Allergy Active 2020-05 ENCCLR 06-25 07:06: 01 RUBBER Allergy Active 2020-05 ENCCLR 06-25 07:06: 01 MORPHINE Allergy Active 2020-05 ENCCLR 06-24 10:57: 46 MORPHINE Allergy Active 2020-05 ENCCLR 06-24 10:57: 46 MORPHINE Allergy Active 2020-05 ENCCLR 06-24 10:57: 46 MORPHINE Allergy Active 2020-05 ENCCLR 06-24 10:57: 46 MORPHINE Allergy Active 2020-05 ENCCLR 06-24 10:57: 46 MORPHINE Allergy Active 2020-05 ENCCLR 06-24 10:57: 46 LATEX Allergy Active 2020-05 ENCCLR 06-24 10:57: 24 LATEX Allergy Active 2020-05 ENCCLR 06-24 10:57: 24 LATEX Allergy Active 2020-05 ENCCLR 06-24 10:57: 24 LATEX Allergy Active 2020-05 ENCCLR 06-24 10:57: 24 LATEX Allergy Active 2020-05 ENCCLR 06-24 10:57: 24 LATEX Allergy Active 2020-05 ENCCLR 2-09 10:57: 24 LATEX DRUG Active High ITCHING 2019-0 Univers INGREDI 7-16 ity of 00:00: [place] 00 Medical Branch Latex Propensi Active Itching 2019-0 Univers ty to 7-16 ity of adverse 00:00: [place] reaction 00 Medical s to Branch drug Latex Propensi Active 2019-0 ty to 5-31 adverse 00:00: reaction 00 to drug morphine morphine Active Unknown Commo n [facility] NO KNOWN Drug Active Univers ALLERGIE Class ity of S [facility] Social History Social Habit Start Date Stop Date Quantity Comments Source History of Tobacco Current Smoker Co mmon Spirit - Use [facility] Sex Assigned At Common Sp jabari - [facility] Exposure to Not sure [facility] SARS-CoV-2 (event) [facility] Cigarettes smoked 2019-11-29 2019-11-29 Univers ity of current (pack per 00:00:00 00:00:00 ) - Reported Branch Cigarette 2019-11-29 2019-11-29 University of pack-years 00:00:00 00:00:00 [facility] Alcohol intake 2019-11-29 2019-11-29 Current drinker Unive rsity of 00:00:00 00:00:00 of alcohol [facility] (finding) [place] Tobacco use and 2019-11-29 2019-11-29 Never used Universit y of exposure 00:00:00 00:00:00 [facility] Smoking Status Start Date Stop Date Source Current Smoker 2021-05-28 00:00:00 Common Spir t - [facility] Medications Ordered Filled Start Stop Current Ordering Indication Dosage Frequency Signature Comments Components Source Medication Medication Date Date Medication? Clinician (SIG) Name Name TAKE 1 2021-05 No TABLET BY 0-24 MOUTH EVERY 00:00: DAY 00 trazodone 2021-0 No 1mg 50 mg 7-06 tablet 00:00: 00 rosuvastati 2021-0 No 1mg n 10 mg 6-21 tablet 00:00: 00 Xarelto 20 2021-0 No 1mg mg tablet 6-21 00:00: 00 oxybutynin 2021-0 No 1mg chloride 5 6-21 mg tablet 00:00: 00 nitroglycer 2021-0 No 1mg in 0.4 mg 6-21 sublingual 00:00: tablet 00 Dose 2022-0 No Unknown 6-21 00:00: 00 omeprazole 2022-0 No 1mg 40 mg 6-21 capsule,del 00:00: ayed 00 release Dose 2022-0 No Unknown 5-03 00:00: 00 gabapentin 2022-0 No 1mg 100 mg 4-04 capsule 00:00: 00 trazodone 2022-0 No 1mg 50 mg 3-03 tablet 00:00: 00 rosuvastati 2022-0 No 1mg n 10 mg 3-03 tablet 00:00: 00 Xarelto 20 2022-0 No 1mg mg tablet 3-03 00:00: 00 oxybutynin 2022-0 No 1mg chloride 5 3-03 mg tablet 00:00: 00 Dose 2022-0 No Unknown 3-03 00:00: 00 benzonatate 2022-0 No 1mg 100 mg 3-03 capsule 00:00: 00 omeprazole 2022-0 No 1mg 40 mg 3-03 capsule,del 00:00: ayed 00 release Dose 2022-0 No Unknown 3-03 00:00: 00 Dose 2022-0 No Unknown 3-03 00:00: 00 Dose 2022-0 No Unknown 3-03 00:00: 00 Dose 2022-0 No Unknown 3-03 00:00: 00 Dose 2022-0 No Unknown 3-03 00:00: 00 Dose 2022-0 No Unknown 3-03 00:00: 00 Dose 2022-0 No Unknown 3-03 00:00: 00 Dose 2022-0 No Unknown 3-03 00:00: 00 Dose 2022-0 No Unknown 3-03 00:00: 00 Dose 2022-0 No Unknown 3-03 00:00: 00 Dose 2022-0 No Unknown 3-03 00:00: 00 Dose 2022-0 No Unknown 3-03 00:00: 00 Dose 2022-0 No Unknown 3-03 00:00: 00 Dose 2022-0 No Unknown 3-03 00:00: 00 Dose 2022-0 No Unknown 3-03 00:00: 00 Dose 2022-0 No Unknown 3-03 00:00: 00 Dose 2022-0 No Unknown 3-03 00:00: 00 Dose 2022-0 No Unknown 3-03 00:00: 00 Dose 1-0 No Unknown 7-20 00:00: 00 rosuvastati 1-0 No 1mg n 10 mg 7-13 tablet 00:00: 00 Dose 1-0 No Unknown 7-13 00:00: 00 Dose 1-0 No Unknown 7-13 00:00: 00 Myrbetriq 1-0 No 1mg 25 mg 5-27 tablet,exte 00:00: nded 00 release oxybutynin 1-0 No 1mg chloride 5 5-03 mg tablet 00:00: 00 Dose 1-0 No Unknown 4-29 00:00: 00 Dose 1-0 No Unknown 4-29 00:00: 00 oxybutynin 1-0 No 1mg chloride ER 4-28 10 mg 00:00: tablet,exte 00 nded release 24 hr oxybutynin 2020-0 No 1mg chloride ER 4-13 10 mg 00:00: tablet,exte 00 nded release 24 hr rosuvastati 2020-0 No 1mg n 10 mg 4-05 tablet 00:00: 00 omeprazole 2020-0 No 1mg 40 mg 3-09 capsule,del 00:00: ayed 00 release Myrbetriq 2020-0 No 1mg 25 mg 2-26 tablet,exte 00:00: nded 00 release MYRBETRIQ 1-0 Yes [id number] TAKE 1 Un juany 50 mg 1-14 TABLET BY ity of tablet 00:00: MOUTH [place] 00 DAILY Medical Branch rosuvastati 2020-1 No 1mg n 10 mg 0-06 tablet 00:00: 00 mirabegron 2020-0 Yes [id number] 50mg Take 1 U nivers 50 mg 9-29 tablet by ity of tablet 00:00: mouth [place] 00 daily. Medical Branch mirabegron 2020-0 2021- No [id number] 50mg Take 1 Univers 50 mg 9-29 01-14 tablet by ity of tablet 00:00: 00:00 mouth [place] 00 :00 daily. Medical Branch Myrbetriq 2020-0 No 1mg 25 mg 8-03 tablet,exte 00:00: nded 00 release rosuvastati 2020-0 No 1mg n 10 mg 8-03 tablet 00:00: 00 oxybutynin 2020-0 No 1mg chloride ER 8-03 10 mg 00:00: tablet,exte 00 nded release 24 hr omeprazole 2020-0 No 1mg 40 mg 8-03 capsule,del 00:00: ayed 00 release OXYBUTYNIN 2020-0 2020- No 10mg 10 mg Unive rs CHLORIDE, 11-28 daily. ity of BULK, MISC 20:27: 00:00 [place] 20 :00 Medical Branch OXYBUTYNIN 2020-0 2020- No 10mg 10 mg Unive rs CHLORIDE, 11-28 daily. ity of BULK, MISC 20:27: 00:00 [place] 20 :00 Medical Branch rivaroxaban 2020-0 Yes Take by Uni vers (XARELTO) 7-16 mouth ity of 20 mg 18:11: daily. [facility] Medical Branch rosuvastati 2020-0 Yes Take by Uni vers n 10 mg 7-16 mouth ity of CpSP 18:11: daily. [place] [address] Medical Branch rivaroxaban 2020-0 Yes Take by Uni vers (XARELTO) 7-16 mouth ity of 20 mg 18:11: daily. [facility] 48 Medical Branch rosuvastati 2020-0 Yes Take by Uni vers n 10 mg 7-16 mouth ity of CpSP 18:11: daily. [place] [address] Medical Branch rivaroxaban 2020-0 Yes Take by Uni vers (XARELTO) 7-16 mouth ity of 20 mg 18:11: daily. [facility] 48 Medical Branch rosuvastati 2020-0 Yes Take by Uni vers n 10 mg 7-16 mouth ity of CpSP 18:11: daily. [place] [address] Medical Branch rivaroxaban 2020-0 Yes Take by Uni vers (XARELTO) 7-16 mouth ity of 20 mg 18:11: daily. [facility] 48 Medical Branch rosuvastati 2020-0 Yes Take by Uni vers n 10 mg 7-16 mouth ity of CpSP 18:11: daily. [place] [address] Medical Branch mirabegron 2020-0 Yes [id number] TK 1 T PO Univers (MYRBETRIQ) 7-16 D ity of 25 mg 00:00: [place] tablet 00 Medical Branch mirabegron 2020-0 Yes [id number] TK 1 T PO Univers (MYRBETRIQ) 7-16 D ity of 25 mg 00:00: [place] tablet 00 Medical Branch mirabegron 2020-0 2020- No [id number] TK 1 T PO Univers (MYRBETRIQ) 11-28 09-29 D ity of 25 mg 00:00: 00:00 [place] tablet 00 :00 Medical Branch MYRBETRIQ 2020-0 2020- No TK 1 T PO Un juany 25 mg 11-13 D ity of tablet 00:00: 00:00 [place] 00 :00 Medical Branch MYRBETRIQ 2020-0 2020- No TK 1 T PO Un juany 25 mg 11-13 D ity of tablet 00:00: 00:00 [place] 00 :00 Medical Branch Myrbetriq 2020-0 No 1mg 25 mg 6-08 tablet,exte 00:00: nded 00 release omeprazole 2020-0 No 1mg 40 mg 6-04 capsule,del 00:00: ayed 00 release rosuvastati 2020-0 No 1mg n 10 mg 6-04 tablet 00:00: 00 oxybutynin 2020-0 No 1mg chloride ER 6-04 10 mg 00:00: tablet,exte 00 nded release 24 hr rosuvastati 2020-0 No 1mg n 10 mg 5-31 tablet 00:00: 00 Dose 2020-0 No Unknown 5-31 00:00: 00 omeprazole 2020-0 No 1mg 40 mg 5-31 capsule,del 00:00: ayed 00 release pantoprazol 2020-0 Yes TK 1 T PO U nivers e 40 mg EC 5-11 D ity of tablet 00:00: [place] 00 Medical Branch pantoprazol 2020-0 Yes TK 1 T PO U nivers e 40 mg EC 5-11 D ity of tablet 00:00: [place] 00 Medical Branch pantoprazol 2020-0 Yes TK 1 T PO U nivers e 40 mg EC 5-11 D ity of tablet 00:00: [place] 00 Medical Branch pantoprazol 2020-0 Yes TK 1 T PO U nivers e 40 mg EC 5-11 D ity of tablet 00:00: [place] 00 Medical Branch oxybutynin 2020-0 No 1mg chloride ER 4-14 10 mg 00:00: tablet,exte 00 nded release 24 hr sulfamethox 2019-1 Yes [id number] 1{tbl} Take 1 Univers azole-trime 2-11 tablet by ity of thoprim 00:00: mouth 2 [place] 800-160 mg 00 (two) Medical per tablet times Branch daily. sulfamethox 2018-05 Yes [id number] 1{tbl} Take 1 Univers azole-trime 2-11 tablet by ity of thoprim 00:00: mouth 2 [place] 800-160 mg 00 (two) Medical per tablet times Branch daily. sulfamethox 2018-05 Yes [id number] 1{tbl} Take 1 Univers azole-trime 2-11 tablet by ity of thoprim 00:00: mouth 2 [place] 800-160 mg 00 (two) Medical per tablet times Branch daily. sulfamethox 2018-05 Yes [id number] 1{tbl} Take 1 Univers azole-trime 2-11 tablet by ity of thoprim 00:00: mouth 2 [place] 800-160 mg 00 (two) Medical per tablet times Branch daily. sulfamethox 2018-05 Yes [id number] 1{tbl} Take 1 Univers azole-trime 2-11 tablet by ity of thoprim 00:00: mouth 2 [place] 800-160 mg 00 (two) Medical per tablet times Branch daily. sulfamethox 2018-05 Yes [id number] 1{tbl} Take 1 Univers azole-trime 2-11 tablet by ity of thoprim 00:00: mouth 2 [place] 800-160 mg 00 (two) Medical per tablet times Branch daily. sulfamethox 2018-05 Yes [id number] 1{tbl} Take 1 Univers azole-trime 2-11 tablet by ity of thoprim 00:00: mouth 2 [place] 800-160 mg 00 (two) Medical per tablet times Branch daily. Estradiol 2018-05 Yes [id number] 1 per Uni vers (VAGIFEM) 2-07 vagina ity of 10 mcg 00:00: every [place] tablet 00 night for Medical 2 weeks, Branch then every , , Tuesday pm. Estradiol 2018-05 Yes [id number] 1 per Uni vers (VAGIFEM) 2-07 vagina ity of 10 mcg 00:00: every [place] tablet 00 night for Medical 2 weeks, Branch then every , , Tuesday pm. Estradiol 2018-05 Yes [id number] 1 per Uni vers (VAGIFEM) 2-07 vagina ity of 10 mcg 00:00: every [place] tablet 00 night for Medical 2 weeks, Branch then every , , Tuesday pm. Estradiol 2019- Yes [id number] 1 per Uni vers (VAGIFEM) 2-07 vagina ity of 10 mcg 00:00: every [place] tablet 00 night for Medical 2 weeks, Branch then every , , Tuesday pm. Estradiol 2019- Yes [id number] 1 per Uni vers (VAGIFEM) 2-07 vagina ity of 10 mcg 00:00: every [place] tablet 00 night for Medical 2 weeks, Branch then every , , Tuesday pm. Estradiol 2019- Yes [id number] 1 per Uni vers (VAGIFEM) 2-07 vagina ity of 10 mcg 00:00: every [place] tablet 00 night for Medical 2 weeks, Branch then every , , Tuesday pm. Estradiol 2018- Yes [id number] 1 per Uni vers (VAGIFEM) 2-07 vagina ity of 10 mcg 00:00: every [place] tablet 00 night for Medical 2 weeks, Branch then every , , Tuesday pm. OXYBUTYNIN 2018-05 Yes 10mg 10 mg Univer s CHLORIDE, 2-06 daily. ity of BULK, MISC 14:47: [address] rosuvastati 2018-05 Yes Take by Uni vers n 10 mg 2-06 mouth ity of CpSP 14:47: daily. [address] rivaroxaban 2018- Yes Take by Uni vers (XARELTO) 2-06 mouth ity of 20 mg 14:47: daily. [address] OXYBUTYNIN 2018-05 Yes 10mg 10 mg Univer s CHLORIDE, 2-06 daily. ity of BULK, MISC 14:47: [address] rosuvastati 2018- Yes Take by Uni vers n 10 mg 2-06 mouth ity of CpSP 14:47: daily. [address] rivaroxaban 2018- Yes Take by Uni vers (XARELTO) 2-06 mouth ity of 20 mg 14:47: daily. [address] OXYBUTYNIN 2019- Yes 10mg 10 mg Univer s CHLORIDE, 2-06 daily. ity of BULK, MISC 14:47: [address] rosuvastati 2018- Yes Take by Uni vers n 10 mg 2-06 mouth ity of CpSP 14:47: daily. [address] rivaroxaban 2018- Yes Take by Uni vers (XARELTO) 2-06 mouth ity of 20 mg 14:47: daily. [place] [address] Medical Branch Nitroglycer Nitroglycer Yes Amber as Common in in 01-10 [place] directed Spirit 00:00: - [facility] 00 [facility] Nitroglycer Nitroglycer No Nitroglyce in 0.4 MG in 0.4 MG 01-10 rin 0.4 MG 00:00: 00 Nitroglycer Nitroglycer No Nitroglyce in 0.4 MG in 0.4 MG 01-10 rin 0.4 MG 00:00: [facility] 2019- No Amber 1 Common 01-10- [place] applicatio Spi rit 00:00: 00:00 n to - [facility] 00 :00 affected [facility] Glucerna Glucerna Yes Amber as Comm on 08-11 [place] directed Spirit 00:00: - [facility] 00 [facility] Glucerna - Glucerna - No Glucerna - - 00:00: 00 Glucerna - Glucerna - 2019-0 No Glucerna - 3-29 00:00: 00 Losartan Losartan 2017- Yes Amber 1/2 to 1 Common Potassium Potassium 2-12 [place] tablet Spirit 00:00: - [facility] 00 [facility] Amber 1 Common ne ne 3-19 [place] applicatio Spir it Acetonide Acetonide 00:00: n to - C [place] 00 affected [facility] No 1{appli BID Triamcinol ne ne 3-19 cation_ one Acetonide Acetonide 00:00: to_affe Acetonide 0.1 % 0.1 % 00 cted_ar 0.1 % ea} [facility] No [facility]{appli BID Triamcinol ne ne 3-19 cation_ one Acetonide Acetonide 00:00: to_affe Acetonide 0.1 % 0.1 % 00 cted_ar 0.1 % ea} VICOPROFEN 2006- Yes 1 tab Q4-6 U nivers 7.5-200 MG 8-11 hours PRN ity of ORAL TAB 00:00: pain Medical Branch CEPHALEXIN 2007-0 Yes 1 tab PO Uni vers 500 MG ORAL 8-11 BID ity of CAP 00:00: Medical Branch VICOPROFEN 0 Yes 1 tab Q4-6 U nivers 7.5-200 MG 8-11 hours PRN ity of ORAL TAB 00:00: pain Medical Branch CEPHALEXIN 2006-0 Yes 1 tab PO Uni vers 500 MG ORAL 8-11 BID ity of CAP 00:00: Medical Branch VICOPROFEN 0 Yes 1 tab Q4-6 U nivers 7.5-200 MG 8-11 hours PRN ity of ORAL TAB 00:00: pain Medical Branch CEPHALEXIN 2006-0 Yes 1 tab PO Uni vers 500 MG ORAL 8-11 BID ity of CAP 00:00: [place] [facility] VICOPROFEN Yes 1 tab Q4-6 U nivers 7.5-200 MG 8-11 hours PRN ity of ORAL TAB 00:00: pain Medical Branch CEPHALEXIN 2006-0 Yes 1 tab PO Uni vers 500 MG ORAL 8-11 BID ity of CAP 00:00: Medical Branch VICOPROFEN 2006-0 Yes 1 tab Q4-6 U nivers 7.5-200 MG 8-11 hours PRN ity of ORAL TAB 00:00: pain Medical Branch CEPHALEXIN 2006-0 Yes 1 tab PO Uni vers 500 MG ORAL 8-11 BID ity of CAP 00:00: Medical Branch VICOPROFEN 2006-0 Yes 1 tab Q4-6 U nivers 7.5-200 MG 8-11 hours PRN ity of ORAL TAB 00:00: pain Medical Branch CEPHALEXIN 2006-0 Yes 1 tab PO Uni vers 500 MG ORAL 8-11 BID ity of CAP 00:00: [place] [facility] VICOPROFEN 2006-0 Yes 1 tab Q4-6 U nivers 7.5-200 MG 8-11 hours PRN ity of ORAL TAB 00:00: pain Medical Branch CEPHALEXIN 2006-0 Yes 1 tab PO Uni vers 500 MG ORAL 8-11 BID ity of CAP 00:00: [place] [address] Medical Branch Xarelto Xarelto Yes Amber 1 tablet Comm on [place] in evening Spir it with food - [facility] Calcium Calcium Yes Amber 600 mg>>>1 Co mmon [place] tablet [facility] Crestor Crestor Yes Amber 1 tablet Comm on [place] in evening [facility] it [facility] Folic Acid Folic Acid Yes Amber 1 tablet Common [place] [facility] Tylenol # 3 Tylenol # 3 Yes Amber 2 tablets Common [place] as needed [facility] Gabapentin Gabapentin Yes Amber 1 tablet Common [place] before Spirit bedtime [facility] Losartan Losartan Yes Amber TAKE 1/2 Co mmon Potassium Potassium [place] TO 1 Spirit TABLET BY - [facility]I MOUTH St EVERY DAY [facility] NEEDED Medical FOR BLOOD Center PRESSURE GREATER THAN OR EQUAL TO 150/90 Vitamin B12 Vitamin B12 Yes Amber 1 tablet Common [place] [facility] Vitamin D Vitamin D Yes Amber 1 tablet Common [place] [facility] Multivitami Multivitami Yes Amber 1 tablet Common n n [place] [facility] Tramadol Tramadol Yes Amber 1 tablet Co mmon HCl HCl [place] as needed [facility] Gabapentin Gabapentin No 1{table QD Gabapentin 300 MG 300 MG t_befor 300 MG e_bedti me} Crestor 10 Crestor 10 No QD Crestor 10 MG MG MG Calcium Calcium No QD Calcium Xarelto 20 Xarelto 20 No QD Xarelto 20 Crestor 10 Crestor 10 No QD Crestor 10 Xarelto 20 Xarelto 20 No QD Xarelto 20 mg mg mg traMADol traMADol No 1{table BID traMADol HCl 50 MG HCl 50 MG t_as_ne HCl 50 MG eded} Vitamin D Vitamin D No 1{table QD Vitamin D 1000 UNIT 1000 UNIT t} 1000 UNIT Vitamin B12 Vitamin B12 No 1{table Vitamin 100 MCG 100 MCG t} B12 100 MCG Losartan Losartan No Losartan Potassium Potassium Potassium 25 mg 25 mg 25 mg Multivitami Multivitami No 1{table QD Multivitam n n t} in Folic Acid Folic Acid No 1{table QD Folic Acid 1 MG 1 MG t} 1 MG Losartan Losartan No Losartan Potassium Potassium Potassium 25 25 25 Tylenol # 3 Tylenol # 3 No 2{table QID Tylenol # 30500-15 30-500-15 ts_as_n 3 MG MG eeded} 30-500-15 MG Crestor 10 Crestor 10 No QD Crestor 10 Xarelto 20 Xarelto 20 No QD Xarelto 20 mg mg mg Vitamin B12 Vitamin B12 No 1{table Vitamin 100 MCG 100 MCG t} B12 100 MCG Crestor 10 Crestor 10 No QD Crestor 10 MG MG MG traMADol traMADol No 1{table BID traMADol HCl 50 MG HCl 50 MG t_as_ne HCl 50 MG eded} Tylenol # 3 Tylenol # 3 No 2{table QID Tylenol # 30500-15 30500-15 ts_as_n 3 MG MG eeded} 30-500-15 MG Multivitami Multivitami No 1{table QD Multivitam n n t} in Losartan Losartan No Losartan Potassium Potassium Potassium 25 25 25 Losartan Losartan No Losartan Potassium Potassium Potassium 25 mg 25 mg 25 mg Vitamin D Vitamin D No 1{table QD Vitamin D 1000 UNIT 1000 UNIT t} 1000 UNIT Gabapentin Gabapentin No 1{table QD Gabapentin 300 MG 300 MG t_befor 300 MG e_bedti me} Calcium Calcium No QD Calcium Folic Acid Folic Acid No 1{table QD Folic Acid 1 MG 1 MG t} 1 MG Xarelto 20 Xarelto 20 No QD Xarelto 20 Oxybutynin Oxybutynin 2020- No Amber 1 tablet Common Chloride ER Chloride ER 05-17 [place] Spirit 00:00 - [facility] :00 [facility] Immunizations Ordered Immunization Filled Immunization Date Status Commen ts Source Name Name Lenin Guevaraid-19 2022-03-10 Completed Vaccine (Aged 12 years 00:00:00 and older) ([employer]) Moderna COVID-19 2021-08-25 Completed Vaccine 00:00:00 Moderna COVID-19 2020-10-31 Completed Vaccine 00:00:00 Moderna COVID-19 2020-08-26 Completed Vaccine 00:00:00 Vital Signs Vital Name Observation Time Observation Value Comments Source height 2021-05-28 15:30:00 61.50 [in_i] [facility] weight 2021-05-28 15:30:00 98 [lb_av] [facility] bmi 2021-05-28 15:30:00 18.22 kg/m2 Common S pirit [facility] blood pressure 2021-05-28 15:30:00 111 mm[Hg] Common Spirit - systolic [facility] blood pressure 2021-05-28 15:30:00 79 mm[Hg] Common Spirit - diastolic [facility] height 2021-04-29 10:40:00 61.50 [in_i] [facility] weight 2021-04-29 10:40:00 98 [lb_av] Common S pirit - [facility] bmi 2021-04-29 10:40:00 18.22 kg/m2 Common S pirit - [facility] blood pressure 2021-04-29 10:40:00 120 mm[Hg] Common Spirit - systolic [facility] blood pressure 2021-04-29 10:40:00 80 mm[Hg] Common Spirit - diastolic [facility] Systolic blood 2019-11-29 18:14:00 112 mm[Hg] Univer [facility]ity [facility] Diastolic blood 2019-11-29 18:14:00 70 mm[Hg] Unive rsity of [facility] Heart rate 2019-11-29 18:14:00 73 /min Universi ty [facility] Respiratory rate 2019-11-29 18:14:00 18 /min [facility] height 2019-11-29 18:14:00 154.9 cm [facility] Body weight 2019-11-29 18:14:00 46.403 kg [facility] BMI 2019-11-29 18:14:00 19.33 kg/m2 [facility] Systolic blood 2019-11-01 20:21:00 123 mm[Hg] Univer sity of pressure [facility] Diastolic blood 2019-11-01 20:21:00 73 mm[Hg] Unive rsity of [facility] Heart rate 2019-11-01 20:21:00 85 /min [facility] Body temperature 2019-11-01 20:21:00 36.83 Alondra [facility] Respiratory rate 2019-11-01 20:21:00 20 /min [facility] Body height 2019-11-01 20:21:00 152.4 cm [facility] Body weight 2019-11-01 20:21:00 44.815 kg [facility] BMI 2019-11-01 20:21:00 19.30 kg/m2 [facility] Oxygen saturation in 2019-11-01 20:21:00 98 /min [facility] blood by [facility] Pulse oximetry Branch BP Systolic 2022-03-10 09:22:00 148 mm[Hg] BP Diastolic 2022-03-10 09:22:00 58 mm[Hg] Weight Measured 2022-03-10 09:22:00 103.60 pounds Height Measured 2022-03-10 09:22:00 60.02 inches Body Temperature 2022-03-10 09:22:00 97.90 degrees Heart Rate 2022-03-10 09:22:00 58.00 /min Respiratory Rate 2022-03-10 09:22:00 16.00 /min BP Systolic 2020-11-25 13:42:00 BP Diastolic 2020-11-25 13:42:00 Weight Measured 2020-11-25 13:42:00 101.40 pounds Height Measured 2020-11-25 13:42:00 60.02 inches Body Temperature 2020-11-25 13:42:00 97.60 degrees Heart Rate 2020-11-25 13:42:00 Respiratory Rate 2020-11-25 13:42:00 Height Measured 2020-08-26 10:32:00 62.00 inches Body Temperature 2020-08-26 10:32:00 98.90 degrees Heart Rate 2020-08-26 10:32:00 55.00 /min Respiratory Rate 2020-08-26 10:32:00 BP Systolic 2020-08-26 10:32:00 101 mm[Hg] BP Diastolic 2020-08-26 10:32:00 52 mm[Hg] Weight Measured 2020-08-26 10:32:00 106.60 pounds BP Systolic 2020-06-10 07:56:00 BP Diastolic 2020-06-10 07:56:00 Weight Measured 2020-06-10 07:56:00 104.00 pounds Height Measured 2020-06-10 07:56:00 62.00 inches Body Temperature 2020-06-10 07:56:00 Heart Rate 2020-06-10 07:56:00 Respiratory Rate 2020-06-10 07:56:00 BP Systolic 2020-02-19 13:32:00 117 mm[Hg] BP Diastolic 2020-02-19 13:32:00 70 mm[Hg] Weight Measured 2020-02-19 13:32:00 104.60 pounds Height Measured 2020-02-19 13:32:00 62.00 inches Body Temperature 2020-02-19 13:32:00 98.00 degrees Heart Rate 2020-02-19 13:32:00 85.00 /min Respiratory Rate 2020-02-19 13:32:00 17.00 /min BP Systolic 2019-10-15 14:46:00 137 mm[Hg] BP Diastolic 2019-10-15 14:46:00 66 mm[Hg] Weight Measured 2019-10-15 14:46:00 101.00 pounds Height Measured 2019-10-15 14:46:00 62.00 inches Body Temperature 2019-10-15 14:46:00 97.90 degrees Heart Rate 2019-10-15 14:46:00 65.00 /min Respiratory Rate 2019-10-15 14:46:00 Procedures Procedure Date / Time Performed Performing Clinician Sour e POCT URINALYSIS AUTO 2019-11-01 20:27:00 [facility] REFERRAL- 2019-10-22 05:01:00 Doctor Unassigned, No [facility] REQUEST/RESPONSE Name [facility] Plan of Care Planned Activity Planned Date Details Comments Source Goal Plan of Care Note [code = 82287-9] Goal Plan of Care Note [code = 09799-0] Goal Plan of Care Note [code = 07820-0] Goal Plan of Care Note [code = 94001-0] Goal Plan of Care Note [code = 77965-9] Goal Plan of Care Note [code = 76691-5] Goal Plan of Care Note [code = 99080-8] Goal Plan of Care Note [code = 94030-0] Goal Plan of Care Note [code = 50885-4] Goal Plan of Care Note [code = 67217-7] Goal Plan of Care Note [code = 17540-2] Goal Plan of Care Note [code = 48326-6] Encounters Start End Encounter Admission Attending Care Care Encounter Source Date/Time Date/Time Type Type Clinicians Facility Department ID 2021-06-11 Outpatient 3 RAAD SAMS [facility] [id number] [facility] 13:23:02 [facility] [place] 2021-06-11 Outpatient 3 [id number] E[facility] RE[facility] 13:20:24 [facility] [place] 2021-06-11 Outpatient 3 [id number] ENCPL REF [facility] 13:19:55 [facility] [place] 2021-06-10 Outpatient Phill, [facility] Common 14:25:16 [place] [id number] [facility] 2021-06-10 Outpatient Phill [facility] Common 14:24:25 Amber [id number] [facility] 2021-06-10 Outpatient Phill [facility] Common 14:23:55 Amber [id number] [facility] 2021-06-10 Outpatient Phill [facility] Common 14:22:19 [place] [id number] [facility] 2021-06-10 Outpatient Phill [facility] Common 11:05:08 Amber [id number] [facility] 2021-04-20 Outpatient NEW ENCCLR ENCCLR [id number] EN CCLR 15:03:32 ADMISSION 2020-09-10 Inpatient Raslan, HCACL HCACL [id number] [facility] 16:16:13 Red 40 [facility] 2022-03-10 2022-03-10 Outpatient OMAR NELSON [id number] German 09:33:34 09:33:34 Cira6 F Isaias 2022-03-10 2022-03-10 Outpatient [id number] 00:00:00 00:00:00 Visit [id number] 2021-05-28 2021-05-28 Postop STLMLC STLMLC [id number] Co mmon 00:00:00 00:00:00 visit [facility] 2021-04-23 2021-05-14 Outpatient JOSELIN YEUNG, ENCCLR ENCCLR [id number] ENCCLR 00:00:00 00:00:00 ADMISSION ZACARIAS 2021-04-29 2021-04-29 OFFICE STLMLC STLC [id number] Co mmon 00:00:00 00:00:00 VISIT EST Spir it PT LEVEL 3 - [facility] 2020-05-28 2020-05-28 [facility] [id number] Univers 00:00:00 00:00:00 Bilal [facility] [id number] [place] [id number] [place] [address] [phone] [facility] & [facility] 2020-02-12 2020-02-12 [facility] [id number] Univers 00:00:00 00:00:00 Bilal HEALTH [id number] [facility] [place] 4.2.7.[address] [place] [address] [phone] [facility] Primary & [facility] 2019-11-29 2019-11-29 Office Jesus [facility] [id number] Univers 13:00:05 13:15:05 Visit Bilal HEALTH [id number] [facility] [place] [facility] [place] 4.2.7.2.[address] [place] [address] [phone] [facility] Primary & [facility] 2019-11-29 2019-11-29 Outpatient [facility] [id number] Univers 13:15:00 13:15:00 BILAL ity [facility] 2019-11-20 2019-11-20 Outpatient Jose [facility] [id number] Univers 15:00:00 15:00:00 BILAL ity [facility] 2019-11-01 2019-11-01 Office [facility] [id number] Univers 15:03:30 15:35:53 Visit [place] [id number] i ty [facility] 4.2.7.2.686 Dagoberto Hollingsworth [phone] Nd dical [address] 2019-11-01 2019-11-01 Outpatient [facility] [id number] Univers 15:00:00 15:00:00 AUSTIN urias [facility] 2019-10-22 2019-10-22 Orders Doctor SHERLYN [id number] Univers 00:00:00 00:00:00 Only Unassigned, MOODY [id number] ity of [facility] 4.2.7.2.686 Jesse as [phone] [address] 2019-08-24 2019-08-24 Outpatient [facility] [id number] Univers 15:00:00 15:00:00 MITA ity [facility] 2019-08-24 2019-08-24 Outpatient R [facility] [id number] Univers 10:30:00 10:30:00 MITA ity [facility] 2019-07-20 2019-07-20 Outpatient R [facility] [id number] Univers 09:30:00 09:30:00 MITA ity [facility] 2019-04-20 2019-04-20 Outpatient R [facility] [id number] Univers 08:30:00 09:44:13 MITA ity [facility] 2019-01-09 2019-01-09 Out[facility] [id number] Common 14:21:00 14:21:00 [facility] it Road [facility] 2019-01-03 2019-01-03 Outpatient [facility] [id number] Common 16:00:00 16:00:00 [facility] it Road [facility] 2018-11-29 2018-11-29 Outpatient [facility] 26 [id number] Common 10:44:00 10:44:[address] [facility] 2018-11-29 2018-11-29 Outpatient [facility] [id number] Common 10:05:00 10:05:[address] [facility] 2018-11-28 2018-11-28 Outpatient [facility] [id number] Common 14:40:00 14:40:[address] [facility] 2018-10-19 2018-10-19 Outpatient [facility] [id number] Common 16:57:00 16:57:[address] [facility] 2018-08-16 2018-08-16 Outpatient [facility] [id number] Common 14:42:00 14:42:[address] [facility] 2018-07-20 2018-07-20 Outpatient [facility] [id number] Common 01:51:00 01:51:[address] [facility] 2018-07-19 2018-07-19 Outpatient [facility] [id number] Common 16:00:00 16:00:[address] [facility] 2018-05-11 2018-05-11 Outpatient [facility] [id number] Common 00:09:00 00:09:[address] [facility] 2018-05-04 2018-05-04 Outpatient [facility] [id number] Common 08:24:00 08:24:[address] [facility] 2018-04-26 2018-04-26 Outpatient [facility] [id number] Common 13:45:00 13:45:[address] [facility] 2018-02-28 2018-02-28 Outpatient [facility] [id number] Common 11:00:00 11:00:[address] [facility] 2018-02-22 2018-02-22 Outpatient [facility] [id number] Common 20:22:00 20:22:[address] [facility] 2018-02-21 2018-02-21 Outpatient [facility] [id number] Common 13:00:00 13:00:[address] [facility] 2018-02-20 2018-02-20 Outpatient [facility] [id number] Common 15:43:00 15:43:[address] [facility] 2018-02-01 2018-02-01 Outpatient [facility] [id number] Common 16:00:00 16:00:[address] [facility] 2017-11-18 2017-11-18 Outpatient [facility] [id number] Common 11:53:00 11:53:[address] [facility] 2017-11-07 2017-11-07 Outpatient [facility] [id number] Common 22:32:00 22:32:[address] [facility] 2017-11-04 2017-11-04 Outpatient [facility] [id number] Common 15:45:00 15:45:[address] [facility] 2017-08-01 2017-08-01 Outpatient [facility] [id number] Common 11:45:00 11:45:[address] [facility] Results Test Description Test Time Test Comments Results Result Comments Source COMPREHENSIVE METABOLIC PANEL 2021-08-26 03:47:06 Test Item Value Reference Range Interpretation Comme nts GLUCOSE (test code = 2217) 98 MG/DL 70-99 BUN (test code = 2208) 22 MG/DL 8-23 CREATININE (test code = 0.81 MG/DL 0.60-1.30 2213) eGFR (2020 CKD-EPI) (test 71 ML/MIN/1.73 >60 code = 24242) CALC BUN/CREAT (test code = 27 RATIO 6-28 2234) SODIUM (test code = 2231) 141 MEQ/L 133-146 POTASSIUM (test code = 2228) 4.8 MEQ/L 3.5-5.4 CHLORIDE (test code = 2215) 104 MEQ/L 95-107 CARBON DIOXIDE (test code = 23 MEQ/L -2205) CALCIUM (test code = 220) 9.9 MG/DL 8.5-10.5 PROTEIN, TOTAL (test code = 7.6 G/DL 6.1-8.3 2228) ALBUMIN (test code = 220) 4.5 G/DL 3.5-5.2 CALC GLOBULIN (test code = 3.1 G/DL 1.9-3.7 2239) CALC A/G RATIO (test code = 1.5 RATIO 1.0-2.6 2233) BILIRUBIN, TOTAL (test code 0.6 MG/DL See_Comment [Automated message] The = 2206) system which ge nerated this result transmit jean pierre reference range: <=1.2. T he reference range was not u sed to interpret this result as normal/abnormal . ALKALINE PHOSPHATASE (test 87 U/L 40-142 code = 2204) AST (test code = 2218) 26 U/L 9-40 ALT (test code = 2219) 13 U/L 5-40 LIPID [id number] 03:47:06 Test Item Value Reference Range Interpretation Comments CHOLESTEROL (test 132 MG/DL <200 code = 2210) TRIGLYCERIDES (test 66 MG/DL <150 code = 2232) HDL CHOLESTEROL (test 48 MG/DL >39 code = 2220) CALC LDL CHOL (test 69 MG/DL <100 NOTE: C ALCULATED LDL code = 2237) IS BASED ON GLEN-VICTOR METHOD WHICHINCLUDES ADJUSTABLE TRIGLYCERIDE:VL DL CHOLESTEROL RAT IO.THIS FACTOR VARIES B Y MEASURED TRIGLY CERIDE AND NON-HDLCHOL ESTEROL CONCENTRATIONS WITH INCREASED CALCU LATED LDL SEENIN HIGH ER TRIGLYCERIDE OR LOWER NON-HDL SPECIME NS. FOR MOREINFORMATION , SEE CLIENT ANNOUNCE MENT AT [email or web address] LDL/HDL 1.44 RATIO <3.22 UNLESS O THERWISE (test code = 223) INDICATED , ALL TESTING PERFORMED [facility], [place] [place] [address] [facility] YUMIKO DIRECTOR: Arsalan CHURCHIA NUMBER [id number] [facility] ACCREDITATION N O. [id number] COMPREHENSIVE METABOLIC PANEL [ADDED]2021-08-26 00:00:00 Test Item Value Reference Range Interpretation Comments GLUCOSE (test code = 2217) 98 MG/DL BUN (test code = 2208) 22 MG/DL CREATININE (test code = 2214) 0.81 MG/DL eGFR (2020 CKD-EPI) (test code 71 ML/MIN/1.73 = 02145) CALC BUN/CREAT (test code = 27 RATIO 2235) SODIUM (test code = 2231) 141 MEQ/L POTASSIUM (test code = 2228) 4.8 MEQ/L CHLORIDE (test code = 2215) 104 MEQ/L CARBON DIOXIDE (test code = 23 MEQ/L 2206) CALCIUM (test code = 2209) 9.9 MG/DL PROTEIN, TOTAL (test code = 7.6 G/DL 2228) ALBUMIN (test code = 2201) 4.5 G/DL CALC GLOBULIN (test code = 3.1 G/DL 2240) CALC A/G RATIO (test code = 1.5 RATIO 2234) BILIRUBIN, TOTAL (test code = 0.6 MG/DL 2206) ALKALINE PHOSPHATASE (test 87 U/L code = 2204) AST (test code = 2218) 26 U/L ALT (test code = 2219) 13 U/L COMPREHENSIVE METABOLIC PANEL [ADDED]2021-08-26 00:00:00 Test Item Value Reference Range Interpretation Comments GLUCOSE (test code = 2217) 98 MG/DL BUN (test code = 2208) 22 MG/DL CREATININE (test code = 2214) 0.81 MG/DL eGFR (2020 CKD-EPI) (test code 71 ML/MIN/1.73 = 79269) CALC BUN/CREAT (test code = 27 RATIO 2235) SODIUM (test code = 2231) 141 MEQ/L POTASSIUM (test code = 2228) 4.8 MEQ/L CHLORIDE (test code = 2215) 104 MEQ/L CARBON DIOXIDE (test code = 23 MEQ/L 220) CALCIUM (test code = 2209) 9.9 MG/DL PROTEIN, TOTAL (test code = 7.6 G/DL 2228) ALBUMIN (test code = 2201) 4.5 G/DL CALC GLOBULIN (test code = 3.1 G/DL 2240) CALC A/G RATIO (test code = 1.5 RATIO 2234) BILIRUBIN, TOTAL (test code = 0.6 MG/DL 2206) ALKALINE PHOSPHATASE (test 87 U/L code = 2204) AST (test code = 2218) 26 U/L ALT (test code = 2219) 13 U/L LIPID PANEL [ADDED]2021-08-26 00:00:00 Test Item Value Reference Range Interpretation Comments CHOLESTEROL (test code = 2210) 132 MG/DL TRIGLYCERIDES (test code = 2232) 66 MG/DL HDL CHOLESTEROL (test code = 2220) 48 MG/DL CALC LDL CHOL (test code = 2237) 69 MG/DL RISK RATIO LDL/HDL (test code = 1.44 RATIO 2238) LIPID PANEL [ADDED]2021-08-26 00:00:00 Test Item Value Reference Range Interpretation Comments CHOLESTEROL (test code = 2210) 132 MG/DL TRIGLYCERIDES (test code = 2232) 66 MG/DL HDL CHOLESTEROL (test code = 2220) 48 MG/DL CALC LDL CHOL (test code = 2237) 69 MG/DL RISK RATIO LDL/HDL (test code = 1.44 RATIO 2238) CBC W/AUTO [id number] 00:00:00 Test Item Value Reference Range Interpretation Comments WBC (test code = 1001) 6.0 K/UL RBC (test code = 1002) 4.56 M/UL HEMOGLOBIN (test code = 1003) 14.8 G/DL HEMATOCRIT (test code = 1004) 43.1 % MCV (test code = 1005) 94.5 fL MCH (test code = 1006) 32.5 PG MCHC (test code = 1007) 34.3 G/DL RDW (test code = 1038) 12.6 % NEUTROPHILS (test code = 1008) 66.4 % LYMPHOCYTES (test code = 1010) 22.9 % MONOCYTES (test code = 1011) 8.9 % EOSINOPHILS (test code = 1012) 1.5 % BASOPHILS (test code = 1013) 0.3 % PLATELET COUNT (test code = 1015) 196 K/UL CBC W/AUTO [id number] 00:00:00 Test Item Value Reference Range Interpretation Comments WBC (test code = 1001) 6.0 K/UL RBC (test code = 1002) 4.56 M/UL HEMOGLOBIN (test code = 1003) 14.8 G/DL HEMATOCRIT (test code = 1004) 43.1 % MCV (test code = 1005) 94.5 fL MCH (test code = 1006) 32.5 PG MCHC (test code = 1007) 34.3 G/DL RDW (test code = 1038) 12.6 % NEUTROPHILS (test code = 1008) 66.4 % LYMPHOCYTES (test code = 1010) 22.9 % MONOCYTES (test code = 1011) 8.9 % EOSINOPHILS (test code = 1012) 1.5 % BASOPHILS (test code = 1013) 0.3 % PLATELET COUNT (test code = 1015) 196 K/UL CBC W/AUTO [id number] 00:00:00 Test Item Value Reference Range Interpretation Comments WBC (test code = 1001) 6.0 K/UL RBC (test code = 1002) 4.56 M/UL HEMOGLOBIN (test code = 1003) 14.8 G/DL HEMATOCRIT (test code = 1004) 43.1 % MCV (test code = 1005) 94.5 fL MCH (test code = 1006) 32.5 PG MCHC (test code = 1007) 34.3 G/DL RDW (test code = 1038) 12.6 % NEUTROPHILS (test code = 1008) 66.4 % LYMPHOCYTES (test code = 1010) 22.9 % MONOCYTES (test code = 1011) 8.9 % EOSINOPHILS (test code = 1012) 1.5 % BASOPHILS (test code = 1013) 0.3 % PLATELET COUNT (test code = 1015) 196 K/UL LIPID [id number] 00:00:00 Test Item Value Reference Range Interpretation Comments CHOLESTEROL (test code = 2210) 125 MG/DL TRIGLYCERIDES (test code = 2232) 67 MG/DL HDL CHOLESTEROL (test code = 2220) 50 MG/DL CALC LDL CHOL (test code = 2237) 61 MG/DL RISK RATIO LDL/HDL (test code = 1.22 RATIO 2238) LIPID [id number] 00:00:00 Test Item Value Reference Range Interpretation Comments CHOLESTEROL (test code = 2210) 125 MG/DL TRIGLYCERIDES (test code = 2232) 67 MG/DL HDL CHOLESTEROL (test code = 2220) 50 MG/DL CALC LDL CHOL (test code = 2237) 61 MG/DL RISK RATIO LDL/HDL (test code = 1.22 RATIO 2238) COMPREHENSIVE METABOLIC [id number] 00:00:00 Test Item Value Reference Range Interpretation Comments GLUCOSE (test code = 2217) 95 MG/DL BUN (test code = 2208) 12 MG/DL CREATININE (test code = 2214) 0.76 MG/DL eGFR AMER. (test code 83 ML/MIN/1.73 = 27275) eGFR NON- AMER. (test 72 ML/MIN/1.73 code = 50616) CALC BUN/CREAT (test code = 16 RATIO 2235) SODIUM (test code = 2231) 138 MEQ/L POTASSIUM (test code = 2228) 4.4 MEQ/L CHLORIDE (test code = 2215) 104 MEQ/L CARBON DIOXIDE (test code = 24 MEQ/L 2205) CALCIUM (test code = 2209) 9.8 MG/DL PROTEIN, TOTAL (test code = 7.1 G/DL 2228) ALBUMIN (test code = 2201) 4.3 G/DL CALC GLOBULIN (test code = 2.8 G/DL 0) CALC A/G RATIO (test code = 1.5 RATIO 4) BILIRUBIN, TOTAL (test code = 0.7 MG/DL 2206) ALKALINE PHOSPHATASE (test 73 U/L code = 2204) AST (test code = 2218) 24 U/L ALT (test code = 2219) 15 U/L COMPREHENSIVE METABOLIC [id number] 00:00:00 Test Item Value Reference Range Interpretation Comments GLUCOSE (test code = 2217) 95 MG/DL BUN (test code = 2208) 12 MG/DL CREATININE (test code = 2214) 0.76 MG/DL eGFR AMER. (test code 83 ML/MIN/1.73 = 74755) eGFR NON- AMER. (test 72 ML/MIN/1.73 code = 40670) CALC BUN/CREAT (test code = 16 RATIO 2235) SODIUM (test code = 2231) 138 MEQ/L POTASSIUM (test code = 2228) 4.4 MEQ/L CHLORIDE (test code = 2215) 104 MEQ/L CARBON DIOXIDE (test code = 24 MEQ/L 2205) CALCIUM (test code = 2209) 9.8 MG/DL PROTEIN, TOTAL (test code = 7.1 G/DL 2228) ALBUMIN (test code = 2201) 4.3 G/DL CALC GLOBULIN (test code = 2.8 G/DL 0) CALC A/G RATIO (test code = 1.5 RATIO 2233) BILIRUBIN, TOTAL (test code = 0.7 MG/DL 2206) ALKALINE PHOSPHATASE (test 73 U/L code = 2204) AST (test code = 2218) 24 U/L ALT (test code = 2219) 15 U/L POCT URINALYSIS, [id number] 20:28:00 Test Item Value Reference Range Interpretation [...] 3267) Lab Interpretation (test code Abnormal = 03875-5) [facility] [id number] 20:28:00 Test Item Value Reference Range Interpretation [...] 3267) Lab Interpretation (test code Abnormal = 45731-7) [facility]FF[facility]PLT[facility]2019-10-16 00:00:00 Test Item Value Reference Range Interpretation Comments WHITE BLOOD CELL COUNT (test 7.2 Thousand/uL code = 6690-2) RED BLOOD CELL COUNT (test 4.69 Million/uL code = 789-8) HEMOGLOBIN (test code = 15.3 g/dL 718-7) HEMATOCRIT (test code = 45.1 % 4544-3) MCV (test code = 787-2) 96.2 fL MCH (test code = 785-6) 32.6 pg MCHC (test code = 786-4) 33.9 g/dL RDW (test code = 788-0) 12.1 % PLATELET COUNT (test code = 192 Thousand/uL 777-3) MPV (test code = 776-5) 10.8 fL ABSOLUTE NEUTROPHILS (test 4644 cells/uL code = 751-8) ABSOLUTE BAND NEUTROPHILS DNR cells/uL (test code = 72046-0) ABSOLUTE METAMYELOCYTES (test DNR cells/uL code = 81510-6) ABSOLUTE MYELOCYTES (test DNR cells/uL code = 62137-1) ABSOLUTE PROMYELOCYTES (test DNR cells/uL code = 50933-3) ABSOLUTE LYMPHOCYTES (test 1771 cells/uL code = 731-0) ABSOLUTE MONOCYTES (test code 626 cells/uL = 742-7) ABSOLUTE EOSINOPHILS (test 130 cells/uL code = 711-2) ABSOLUTE BASOPHILS (test code 29 cells/uL = 704-7) ABSOLUTE BLASTS (test code = DNR cells/uL 94534-1) ABSOLUTE NUCLEATED RBC (test DNR cells/uL code = 08116-1) NEUTROPHILS (test code = 64.5 % 770-8) BAND NEUTROPHILS (test code = DNR % 764-1) METAMYELOCYTES (test code = DNR % 740-1) MYELOCYTES (test code = DNR % 749-2) PROMYELOCYTES (test code = DNR % 783-1) LYMPHOCYTES (test code = 24.6 % 736-9) REACTIVE LYMPHOCYTES (test DNR % code = 58689-2) MONOCYTES (test code = 8.7 % 5905-5) EOSINOPHILS (test code = 1.8 % 713-8) BASOPHILS (test code = 706-2) 0.4 % BLASTS (test code = 709-6) DNR % NUCLEATED RBC (test code = DNR /100WBC 76234-0) COMMENT(S) (test code = DNR 8251-1) COMPREHENSIVE METABOLIC [id number] 00:00:00 Test Item Value Reference Range Interpretation Comments GLUCOSE (test code = 84 mg/dL 2345-7) UREA NITROGEN (BUN) 14 mg/dL (test code = 3094-0) CREATININE (test code = 0.68 mg/dL 2160-0) eGFR NON-AFR. CITIZ[place] 80 mL/min/1.73m2 (test code = 53587-6) eGFR 93 mL/min/1.73m2 (test code = 26203-8) BUN/CREATININE RATIO NOT APPLICABLE (calc) (test code = 3097-3) SODIUM (test code = 138 mmol/L 2951-2) POTASSIUM (test code = 4.1 mmol/L 2823-3) CHLORIDE (test code = 103 mmol/L 2075-0) CARBON DIOXIDE (test 29 mmol/L code = 2027-9) CALCIUM (test code = 10.1 mg/dL 56815-0) PROTEIN, TOTAL (test 7.5 g/dL code = 2885-2) ALBUMIN (test code = 4.6 g/dL 1751-7) GLOBULIN (test code = 2.9 g/dL(calc) 85858-3) ALBUMIN/GLOBULIN RATIO 1.6 (calc) (test code = 1759-0) BILIRUBIN, TOTAL (test 1.0 mg/dL code = 1975-2) ALKALINE PHOSPHATASE 75 U/L (test code = 6768-6) AST (test code = 23 U/L 1920-8) ALT (test code = 16 U/L 1742-6) LIPID PANEL (REFL)2019-10-16 00:00:00 Test Item Value Reference Range Interpretation Comments CHOLESTEROL, TOTAL (test code 132 mg/dL = 2093-3) HDL CHOLESTEROL (test code = 50 mg/dL 5-9) TRIGLYCERIDES (test code = 69 mg/dL 2571-8) LDL-CHOLESTEROL (test code = 67 mg/dL(calc) 28739-6) CHOL/HDLC RATIO (test code = 2.6 (calc) 9830-1) NON HDL CHOLESTEROL (test code 82 mg/dL(calc) = 74511-8)
[2022-03-12] MEDS ORDERED: ASPIRIN 81 MG CHEWABLE TABLET ONE (19:34)
[2022-03-12 19:57] LABS: Absolute Lymphocytes (CBC) 1.7 K/uL (0.7-4.9); Hematocrit 40.1 % (36.0-45.0); Lymphocytes % 24.3 % (15.3-44.8); MCV 93.5 fL (80-100); MPV 7.8 fL (7.6-11.3); RBC Red Blood Cell Count 4.29 M/uL (3.86-4.86)
[2022-03-12 20:12] LABS: Potassium 3.9 mmol/L (3.5-5.1); Troponin High Sensitivity 15.7 pg/mL (<58.9)
--- NOTE | 2022-03-12 20:30 | RAD REPORT ---
EXAM DESCRIPTION: RAD - Chest Single View - 03/12/2022 8:14 pm CLINICAL HISTORY: CHEST PAIN COMPARISON: No comparisonsChest Single View dated 03/28/2021; Abdomen 1 View (KUB) dated 01/11/2019; Chest Pa And Lat (2 Views) dated 11/09/2018; Chest Pa And Lat (2 Views) dated 12/06/2016 FINDINGS: Lines: None. Lungs: Question some subtle developing opacities at the right lung base. No edema. No definite consol idation. Pleural: No significant pleural effusions or pneumothorax. Cardiac: Similar cardiomegaly. Mediastinum: Within normal limits. Bones: No acute fractures. Other: None IMPRESSION: Question subtle airspace disease at the right lung base. A standard PA and lateral could better assess.
--- NOTE | 2022-03-12 22:32 | ER ---
Nurse's Notes [facility] Name: Maureen Martin Age: 86 yrs Sex: Female : 1935 Arrival Date: 03/12/2022 Time: 19:13 Bed 13 Private MD: Diagnosis: Chest pain, unspecified Presentation: 03/12 18:58 Chief complaint: Patient states: patient reports chest pain that radiated to her back db prior to arrival. Patient states took 3 Nitro prior to EMS arrival EMS states: EMS states patient complained of 0/10 pain with them and patient rhythm was Afib. Coronavirus screen: Client denies travel out of the [place] in the last 14 days. At this time, the client does not indicate any symptoms associated with coronavirus-19. Ebola Screen: Patient negative for fever greater than or equal to 101.5 degrees Fahrenheit, and additional compatible Ebola Virus Disease symptoms Patient denies exposure to infectious person. Patient denies travel to an Ebola-affected area in the 21 days before illness onset. No symptoms or risks identified at this time. Initial Sepsis Screen: Does the patient meet any 2 criteria? No. Patient's initial sepsis screen is negative. Does the patient have a suspected source of infection? No. Patient's initial sepsis screen is negative. Risk Assessment: Do you want to hurt yourself or someone else? Patient reports no desire to harm self or others. Onset of symptoms was March 12, 2022. 18:58 Method Of Arrival: EMS: [facility] db 18:58 Acuity: TAYLA 2 db Triage Assessment: 19:16 General: Appears in no apparent distress. comfortable, Behavior is calm, cooperative, db appropriate for age, quiet. Pain: Denies pain. Complains of pain in chest pain prior to Nitro x 3. Cardiovascular: Reports chest pain, prior to arrival. Respiratory: No deficits noted. Airway is patent Respiratory effort is even, unlabored, Respiratory pattern is regular, symmetrical. GI: No deficits noted. No signs and/or symptoms were reported involving the gastrointestinal system. : No deficits noted. No signs and/or symptoms were reported regarding the genitourinary system. Derm: No deficits noted. No signs and/or symptoms reported regarding the dermatologic system. Musculoskeletal: No deficits noted. No signs and/or symptoms reported regarding the musculoskeletal system. Historical: - Allergies: 19:16 Latex, Natural Rubber; db - PMHx: 19:16 Atrial fibrillation; Hyperlipidemia; Hypertensive disorder; db - PSHx: 19:16 partial hysterectomy; db - Immunization history:: Adult Immunizations unknown. - Social history:: Smoking status: Patient denies any tobacco usage or history of. Screenin:00 Abuse screen: Denies threats or abuse. Nutritional screening: No deficits noted. ke1 Tuberculosis screening: No symptoms or risk factors identified. Fall Risk No fall in past 12 months (0 pts). No secondary diagnosis (0 pts). IV access (20 points). Ambulatory Aid- Crutches/Cane/Walker (15 pts). Gait- Normal/Bed Rest/Wheelchair (0 pts) Mental Status- Oriented to own ability (0 pts). Total Harper Fall Scale indicates Low Risk Score (25-44 pts). Fall prevention measures have been instituted. Side Rails Up X 2 Placed close to Nursing Station Frequent Obs/Assesments occuring Family Present and informed to notify staff if they need to leave bedside As available Patient and Family Educated on Fall Prevention Program and strategies. Assessment: 20:21 Reassessment: Patient daughter request another room because bed 15 floor is dirty, ke1 housekeeping called to clean room and patient transferred to room 13 , Ac broken and all the the floors are moist and retains dirt. 20:28 Cardiovascular: Rhythm is atrial fibrillation. ke1 21:31 Reassessment: Patient and/or family updated on plan of care and expected duration. Pain ke1 level reassessed. Patient denies pain at this time. Patient states feeling better. Patient states symptoms have improved. 22:33 Reassessment: Patient denies pain at this time. Patient states feeling better. Patient ke1 states symptoms have improved. Vital Signs: 18:58 BP 139 / 66; Pulse 69; Resp 17; Temp 98.5(O); Pulse Ox 99% on R/A; Weight 46.72 kg; db Height 5 ft. 2 in. (157.48 cm); Pain 0/10; 20:25 BP 170 / 55; Pulse 57; Resp 17; Temp 98.4(O); Pulse Ox 98% on R/A; Pain 0/10; ke1 22:32 BP 155 / 58; Pulse 58; Resp 16; Temp 98.2; Pulse Ox 99% on R/A; Pain 0/10; ke1 18:58 Body Mass Index 18.84 (46.72 kg, 157.48 cm) db ED Course: 19:00 Bed in low position. Call light in reach. Side rails up X 1. Side rails up X2. Adult w/ ke1 patient. Client placed on continuous cardiac and pulse oximetry monitoring. NIBP monitoring applied. ekg monitor tech on. Pulse ox on. NIBP on. 19:00 Patient maintains SpO2 saturation greater than 95% on room air. ke1 19:13 Patient arrived in ED. db 19:14 Anna Alex, RN is Primary Nurse. db 19:16 Triage completed. db 19:16 Arm band placed on right wrist. Patient placed in an exam room. db 19:19 Paulie Vincent MD is Attending Physician. bs3 19:19 Maintain EMS IV. Dressing intact. Site clean \T\ dry. Gauge \T\ site: 20 G Left AC. db 19:49 Basic Metabolic Panel Sent. bb 19:49 CBC with Diff Sent. bb 19:49 Troponin HS Sent. bb 20:15 XRAY Chest (1 view) In Process Unspecified. EDMS 22:33 No provider procedures requiring assistance completed. ke1 22:45 IV discontinued. ke1 Administered Medications: 19:49 Drug: Aspirin Chewable Tablet 324 mg Route: PO; bb 22:46 Follow up: Response: No adverse reaction ke1 Medication: 22:45 VIS not applicable for this client. ke1 Outcome: 22:32 Discharge ordered by . bs3 22:45 Discharged to home ambulatory. ke1 22:45 Condition: good 22:45 Discharge instructions given to patient. 22:46 Patient left the ED. ke1 Signatures: Dispatcher [employer] EDMS Maxine Lyons RN RN Marlo Grijalva RN RN ke1 Paulie Vincent MD MD bs3 Anna Alex, RN RN db
--- NOTE | 2022-03-12 22:32 | EDPHYS ---
Physician Documentation [facility] Name: Maureen Martin Age: 86 yrs Sex: Female : 1935 Arrival Date: 03/12/2022 Time: 19:13 Bed 13 Private MD: ED Physician Paulie Vincent HPI: 03/12 19:27 This 86 yrs old Female presents to ER via EMS with complaints of Chest Pain. bs3 19:27 hx of afib on xarelot, hld, cad no stent pw chest pain, intermittent for 20 min, bs3 relieved by nitro x3, similar to prior but normally takes 1 nitro, now 3, it occurred at dinner. Now feeling well, it did radiate to the back and was moderate in intensity described as pain. No assoc numbness, tingling, weakness. . Historical: - Allergies: 19:16 Latex, Natural Rubber; db - PMHx: 19:16 Atrial fibrillation; Hyperlipidemia; Hypertensive disorder; db - PSHx: 19:16 partial hysterectomy; db - Immunization history:: Adult Immunizations unknown. - Social history:: Smoking status: Patient denies any tobacco usage or history of. ROS: 19:28 Constitutional: Negative for fever, chills Eyes: Negative for injury, pain, redness, bs3 and discharge, ENT: Negative for injury, pain, and discharge, Neck: Negative for injury, pain, and swelling, Respiratory: Negative for shortness of breath, cough, wheezing Abdomen/GI: Negative for abdominal pain, nausea, vomiting, diarrhea : Negative for injury, bleeding, discharge, and swelling, MS/Extremity: Negative for injury and deformity, Skin: Negative for injury, rash, and discoloration, Neuro: Negative for headache, weakness, numbness, tingling, and seizure, Psych: Negative for depression, anxiety, suicide ideation, homicidal ideation, and hallucinations, Endocrine: Negative for neck swelling, polydipsia, polyuria, polyphagia, and marked weight changes, Hematologic/Lymphatic: Negative for swollen nodes, abnormal bleeding Exam: 19:28 Constitutional: This is a well developed, well nourished patient who is awake, alert, bs3 and in no acute distress. Head/Face: Normocephalic, atraumatic. Eyes: Pupils equal round and reactive to light, extra-ocular motions intact. Lids and lashes normal. ENT: mmm, no posterior phyarngeal erythema Neck: Trachea midline, no thyromegaly, no neck stiffness Chest/axilla: Normal chest wall appearance and motion. Nontender with no deformity. No lesions are appreciated. Cardiovascular: Regular rate and rhythm with a normal S1 and S2. symmetric pulses in upper extremities Respiratory: Lungs have equal breath sounds bilaterally, clear to auscultation, no respiratory distress Abdomen/GI: Soft, non-tender, no rebound or guarding Skin: Warm, dry with normal turgor. Normal color with no rashes, no lesions, and no evidence of cellulitis. MS/ Extremity: Pulses equal, no cyanosis. Neurovascular intact. Full, normal range of motion. Neuro: Awake and alert, GCS 15, oriented to person, place, time, and situation. Cranial nerves II-XII grossly intact. Motor strength 5/5 in all extremities. Sensory grossly intact. Vital Signs: 18:58 BP 139 / 66; Pulse 69; Resp 17; Temp 98.5(O); Pulse Ox 99% on R/A; Weight 46.72 kg; db Height 5 ft. 2 in. (157.48 cm); Pain 0/10; 20:25 BP 170 / 55; Pulse 57; Resp 17; Temp 98.4(O); Pulse Ox 98% on R/A; Pain 0/10; ke1 22:32 BP 155 / 58; Pulse 58; Resp 16; Temp 98.2; Pulse Ox 99% on R/A; Pain 0/10; ke1 18:58 Body Mass Index 18.84 (46.72 kg, 157.48 cm) db MDM: 19:20 Patient medically screened. bs3 19:29 Differential diagnosis: acute myocardial infarction, anxiety, coronary artery disease bs3 chest wall pain, gastroesophageal reflux disease (GERD). ED course: will eval for acs, will eval for pna, pt on xarelot, normal vitals, doubt pe, pt pain free now, normal pulses, not ripping or tearing, doubt dissection, we had shared decision making conversation, pt wants to go home, will do 2 trop r/o, ecg afib 45 lad, qtc 423, no st elevation or depression. . 22:30 ED course: pt requested to leave, will leave and return if trop is elevated.. bs3 22:32 Data reviewed: vital signs, nurses notes, EMS record, old medical records, lab test bs3 result(s), EKG. 03/12 19:26 Order name: Basic Metabolic Panel; Complete Time: 22:26 bs3 03/12 19:26 Order name: CBC with Diff; Complete Time: 22:26 bs3 03/12 19:26 Order name: Troponin HS; Complete Time: 22:26 bs3 03/12 19:26 Order name: XRAY Chest (1 view); Complete Time: 22:26 bs3 03/12 19:26 Order name: EKG; Complete Time: 19:27 bs3 03/12 19:26 Order name: Cardiac monitoring; Complete Time: 19:49 bs3 03/12 19:26 Order name: EKG - Nurse/Tech; Complete Time: 19:32 bs3 03/12 19:26 Order name: IV Saline Lock; Complete Time: 19:49 bs3 03/12 19:26 Order name: Labs collected and sent; Complete Time: 19:49 bs3 03/12 19:26 Order name: O2 Per Protocol; Complete Time: 19:49 bs3 03/12 19:26 Order name: O2 Sat Monitoring; Complete Time: 19:49 bs3 Administered Medications: 19:49 Drug: Aspirin Chewable Tablet 324 mg Route: PO; bb 22:46 Follow up: Response: No adverse reaction ke1 Disposition Summary: 03/12/22 22:32 Discharge Ordered Location: Home bs3 Problem: new bs3 Symptoms: are resolved bs3 Condition: Stable bs3 Diagnosis - Chest pain, unspecified bs3 Followup: bs3 - With: Private Physician - When: 2 - 3 days - Reason: Recheck today's complaints Discharge Instructions: - Discharge Summary Sheet bs3 - Nonspecific Chest Pain, Adult bs3 Forms: - Medication Reconciliation Form bs3 - Thank You Letter bs3 - Antibiotic Education bs3 - Prescription Opioid Use bs3 Signatures: Dispatcher [employer] Maxine Pate RN RN Paulie Pineda MD MD bs3 Anna Alex RN RN db Ebrottie, Kouassi RN ke1
[2022-03-12 23:02] VITALS: BP 155/58; TEMP 98.2; O2SAT 99
--- NOTE | 2022-03-15 16:05 | EKG ---
Test Date: 2022-03-12 Test Time: 19:27:50 [employer]: KRIS MEASUREMENT RESULTS: Intervals: Rate: 45 AL: QRSD: 130 QT: 490 QTc: 423 [place]: P: AL: QRS: -46 T: 135 INTERPRETIVE STATEMENTS: Atrial fibrillation with slow ventricular response Left axis deviation Left bundle branch block Abnormal ECG Compared to ECG 03/31/2021 13:27:38 No significant changes Electronically Signed On 03-15-22 15:59:54 CDT by Red Valle
== END 2022-03-12 22:46 | disposition home or self-care (01) ==
LOC: ER 19:01
DX: R07.9 Chest pain, unspecified (principal); I10 Essential (primary) hypertension; I48.91 Unspecified atrial fibrillation; Z91.040 Latex allergy status; Z91.048 Other nonmedicinal substance allergy status
CPT/HCPCS: 36415; 71045; 80048; 84484; 85025; 93005; 99285

== ENCOUNTER 2022-04-23 05:00 | Emergency (ER) | payer OTHER ==
--- OUTSIDE RECORDS SUMMARY | 2022-04-23 05:05 | XMS REPORT | Continuity of Care Document ---
:1935 Author Organization [facility] t Address [address] [place] [address] Care Team Providers Name Role Phone Mauricio Roberta VALENTINE Primary Care Physician [phone] POLO SAMS NATASHA Attending Clinician Unavailable [id number] Attending Clinician Unavailable Amber Pollock Attending Clinician Unavailable Red Valle Attending Clinician Unavailable ZACARIAS YEUNG Attending Clinician Unavailable Jacinto Lee MD Attending Clinician JACINTO LEE Attending Clinician Unavailable Austin Begum MD Attending Clinician AUSTIN BEGUM Attending Clinician Unavailable Doctor Unassigned, [place] Attending Clinician Unavailable MITA GARCÍA Attending Clinician Unavailable POLO SASM NATASHA Admitting Clinician Unavailable [id number] Admitting Clinician Unavailable DAISY MALCOLM Admitting Clinician Unavailable Payers Payer Name Policy Type Policy Number Effective Date Expiration Date Ty walker [facility] [id number] [facility] [id number] 2019 PLUS CHOICE 00:00:00 Problems Condition Condition Condition Status Onset Resolution Last Treating Co mments Source Name Details Category Date Date Treatment Clinician Date Uterine Uterine Disease Active 2018-05 Univers polyp polyp 06-21 ity of 00:00: [address] Colonic Colonic Problem Active Common polyp polyp [facility] Osteopenia Osteopenia Problem Active C ommon [facility] Low back Low back Problem Active Commo n pain pain [facility] 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 Sp jabari [facility] Prediabete Prediabete Problem Active C radha s s [facility] [id number] Peripheral Problem Active Co mmon vascular [facility] disease [facility] Pain in Leg pain Problem Active Common limb [facility] [id number] Status Problem Active Common post fall [facility] Abnormalit Abnormal Problem Active Com mon y of red red cell [facility] blood [facility] cells [facility] [id number] Skin tear Problem Active Com mon of left [facility] upper [facility] extremity [facility] Current Current Problem Active Common every day every day Spir it smoker smoker [facility] Claudicati Claudicati Problem Active C ommon on on [facility] Right hip Pain in Problem Active Commo n pain right hip [facility] [id number] Weight Problem Active Common loss [facility] [id number] +5th digit Problem Active Co mmon eff [facility] 02/13/19*Ch [facility] ronic [facility] fibrillati [facility] [id number] Left eye Problem Active Comm on complaint [facility] [id number] Elevated Problem Active Comm on BP without Spirit diagnosis - [facility] [id number] Routine Problem Active Commo n eye exam [facility] [id number] Hyperlipid Problem Active Com mon emia, Spirit unspecifie [facility] hyperlipid [facility] [id number] Abnormal Problem Active Comm on CT scan, [facility] neck [facility] [id number] Injury of Problem Active Comm on head, [facility] initial [facility] encounter [facility] [id number] Other Problem Active Common chronic [facility] pain [facility] [id number] Bruising Problem Active Comm on [facility] 84010479 Atrial Problem Active Common fibrillati Spirit on, - [facility] unspecifie [facility] [id number] Loss of Problem Active Commo n consciousn [facility] ess [facility] [id number] Swelling Problem Active Commo n [facility] [id number] Neck pain Problem Active Comm on [facility] [id number] Closed Problem Active Common fracture [facility] of neck of [facility] left femur [facility] routine [facility] Center subsequent encounter [id number] Abnormal Problem Active Comm on CBC [facility] [id number] [place] [address] left hip [facility] joint [facility] [id number] Upper back Problem Active Co mmon pain [facility] [id number] Abnormal Problem Active Comm on x-ray of [facility] neck [facility] [id number] Onychomyco Problem Active Co mmon sis [facility] 32512421 Skin Problem Active Common lesions [facility] Allergies, Adverse Reactions, Alerts Allergy Allergy Status Severity Reaction(s) Onset Inactive Treating Comm ents Source Name Type Date Date Clinician RUBBER Allergy Active 2020-05 ENCCLR 2 07:06: 01 RUBBER Allergy Active 2020-05 ENCCLR 2 07:06: 01 RUBBER Allergy Active 2020-05 ENCCLR 2 07:06: 01 RUBBER Allergy Active 2020-05 ENCCLR 2 07:06: 01 MORPHINE Allergy Active 2020-05 ENCCLR 06-24 10:57: 46 MORPHINE Allergy Active 2020-05 ENCCLR 06-24 10:57: 46 MORPHINE Allergy Active 2020-05 ENCCLR 2 10:57: 46 MORPHINE Allergy Active 2020-05 ENCCLR 2 10:57: 46 MORPHINE Allergy Active 2020-05 ENCCLR 2 10:57: 46 MORPHINE Allergy Active 2020-05 ENCCLR 2 10:57: 46 LATEX Allergy Active 2020-05 ENCCLR 2 10:57: 24 LATEX Allergy Active 2020-05 ENCCLR 2 10:57: 24 LATEX Allergy Active 2020-05 ENCCLR 2 10:57: 24 LATEX Allergy Active 2020-05 ENCCLR 2 10:57: 24 LATEX Allergy Active 2020-05 ENCCLR 2 10:57: 24 LATEX Allergy Active 2020-05 ENCCLR 2-09 10:57: 24 LATEX DRUG Active High ITCHING 2019- Univers INGREDI 7-16 ity of 00:00: [place] 00 Medical Branch Latex Propensi Active Itching 2020-0 Univers ty to 7-16 ity of adverse 00:00: [place] reaction 00 Medical s to Branch drug Latex Propensi Active 2019-0 ty to 5-31 adverse 00:00: reaction 00 to drug morphine morphine Active Unknown Commo n [facility] - [facility] NO KNOWN Drug Active Univers ALLERGIE Class ity of S [facility] Social History Social Habit Start Date Stop Date Quantity Comments Source History of Tobacco Current Smoker Co mmon Spirit - Use [facility] Sex Assigned At Common Sp jabari - [facility] Exposure to Not sure [facility] SARS-CoV-2 (event) [facility] Cigarettes smoked 2019-11-29 2019-11-29 Univers ity of current (pack per 00:00:00 00:00:00 ) - Reported Branch Cigarette 2019-11-29 2019-11-29 University of pack-years 00:00:00 00:00:00 [facility] Alcohol intake 2019-11-29 2019-11-29 Current drinker Unive rsity of 00:00:00 00:00:00 of alcohol [facility] (finding) Lin[facility] Tobacco use and 2019-11-29 2019-11-29 Never used Universit y of exposure 00:00:00 00:00:00 [facility] Smoking Status Start Date Stop Date Source Current Smoker 2021-05-28 00:00:00 Common Spiri t [facility] Medications Ordered Filled Start Stop Current Ordering [...] 00:00: nded 00 release MYRBETRIQ 1-0 Yes [id number] TAKE 1 Un juany 50 mg 1-14 TABLET BY ity of tablet 00:00: MOUTH [place] 00 DAILY Medical Branch rosuvastati 2019-1 No 1mg n 10 mg 0-06 tablet 00:00: 00 mirabegron 2020-0 Yes [id number] 50mg Take 1 U nivers 50 mg 9-29 tablet by ity of tablet 00:00: mouth [place] 00 daily. Medical Branch mirabegron 2020-0 2021- No [id number] 50mg Take 1 Univers 50 mg 9-29 [...] 8-03 capsule,del 00:00: ayed 00 release OXYBUTYNIN 2019-0 2020- No 10mg 10 mg Unive rs CHLORIDE, 11-28 daily. ity of BULK, MISC 20:27: 00:00 [place] 20 :00 Medical [place] OXYBUTYNIN 2019-0 2020- No 10mg 10 mg Unive rs CHLORIDE, 11-28 daily. ity of BULK, MISC 20:27: 00:00 [place] 20 :00 Medical Branch rivaroxaban 2020-0 Yes Take by Uni vers (XARELTO) 7-16 mouth ity of 20 mg 18:11: daily. [place] tablet 48 Medical Branch rosuvastati 2020-0 Yes Take by Uni vers n 10 mg 7-16 mouth ity of CpSP 18:11: daily. [place] [address] Medical Lin[place] rivaroxaban 2019-0 Yes Take by Uni vers (XARELTO) 7-16 mouth ity of 20 mg 18:11: daily. [place] tablet 48 Medical Branch rosuvastati 2020-0 Yes Take by Uni vers n 10 mg 7-16 mouth ity of CpSP 18:11: daily. [place] [address] Medical Branch rivaroxaban 2020-0 Yes Take by Uni vers (XARELTO) 7-16 mouth ity of 20 mg 18:11: daily. [facility] 48 Medical Lin[place] rosuvastati 2020-0 Yes Take by Uni vers n 10 mg 7-16 mouth ity of CpSP 18:11: daily. [address] rivaroxaban 2020-0 Yes Take by Uni vers (XARELTO) 7-16 mouth ity of 20 mg 18:11: daily. [facility] 48 Medical Branch rosuvastati 2020-0 Yes Take by Uni vers n 10 mg 7-16 mouth ity of CpSP 18:11: daily. [address] mirabegron 2020-0 Yes [id number] TK 1 T PO Univers (MYRBETRIQ) 7-16 D ity of 25 mg 00:00: [place] tablet 00 Medical [place] mirabegron 2020-0 Yes [id number] TK 1 T PO Univers (MYRBETRIQ) 7-16 D ity of 25 mg 00:00: [place] tablet 00 Medical [place] mirabegron 2020-0 2020- No [id number] TK 1 T PO Univers (MYRBETRIQ) 11-28 09-29 D ity of 25 mg 00:00: 00:00 [place] tablet 00 :00 Medical Branch MYRBETRIQ 2020-0 2020- No TK 1 T PO Un juany 25 mg 11-1316 D ity of tablet 00:00: 00:00 [place] 00 :00 Medical Branch MYRBETRIQ 2020-0 2020- No TK 1 T PO Un juany 25 mg 11-13 D ity of tablet 00:00: 00:00 [place] 00 :00 Medical Branch Myrbetriq 2020-0 No [...] EC 5-11 D ity of tablet 00:00: [place] 00 Medical Branch pantoprazol 2020-0 Yes TK 1 T PO U nivers e 40 mg EC 5-11 D ity of tablet 00:00: [place] 00 Medical Branch pantoprazol 2020-0 Yes TK 1 T PO U nivers e 40 mg EC 5-11 D ity of tablet 00:00: [place] 00 Medical Branch pantoprazol 2020-0 Yes TK 1 T PO U nivers e 40 mg EC 5-11 D ity of tablet 00:00: [place] 00 Medical Branch oxybutynin 2020-0 No 1mg chloride ER 4-14 10 mg 00:00: tablet,exte 00 nded release 24 hr sulfamethox 2019-1 Yes [id number] 1{tbl} Take 1 Univers azole-trime 2-11 tablet by ity of thoprim 00:00: mouth 2 [place] 800-160 mg 00 (two) Medical per tablet times Branch daily. sulfamethox 2018-05 Yes [id number] 1{tbl} Take 1 Univers azole-trime 2-11 tablet by ity of thoprim 00:00: mouth 2 [place] 800-160 mg 00 (two) Medical per tablet times Branch daily. sulfamethox 2018-05 Yes [id number] 1{tbl} Take 1 Univers azole-trime 2-11 tablet by ity of thoprim 00:00: mouth 2 [place] 800-160 mg 00 (two) Medical per tablet times Branch daily. sulfamethox 2018-05 Yes [id number] 1{tbl} Take 1 Univers azole-trime 2-11 tablet by ity of thoprim 00:00: mouth 2 [place] 800-160 mg 00 (two) Medical per tablet times Branch daily. sulfamethox 2018-05 Yes [id number] 1{tbl} Take 1 Univers azole-trime 2-11 tablet by ity of thoprim 00:00: mouth 2 [place] 800-160 mg 00 (two) Medical per tablet times Branch daily. sulfamethox 2018-05 Yes [id number] 1{tbl} Take 1 Univers azole-trime 2-11 tablet by ity of thoprim 00:00: mouth 2 [place] 800-160 mg 00 (two) Medical per tablet times Branch daily. sulfamethox 2018-05 Yes [id number] 1{tbl} Take 1 Univers azole-trime 2-11 tablet by ity of thoprim 00:00: mouth 2 [place] 800-160 mg 00 (two) Medical per tablet times Branch daily. Estradiol 2018-05 Yes [id number] 1 per Uni vers (VAGIFEM) 2-07 vagina ity of 10 mcg 00:00: every [place] tablet 00 night for Medical 2 weeks, Branch then every , , Tuesday pm. Estradiol 2018-05 Yes [id number] 1 per Uni vers (VAGIFEM) 2-07 vagina ity of 10 mcg 00:00: every [place] tablet 00 night for Medical 2 weeks, Branch then every , , Tuesday pm. Estradiol 2018-05 Yes [id number] 1 per Uni vers (VAGIFEM) 2-07 vagina ity of 10 mcg 00:00: every [place] tablet 00 night for Medical 2 weeks, Branch then every , , Tuesday pm. Estradiol 2019- Yes [id number] 1 per Uni vers (VAGIFEM) 2-07 vagina ity of 10 mcg 00:00: every [place] tablet 00 night for Medical 2 weeks, Branch then every , , Tuesday pm. Estradiol 2019- Yes [id number] 1 per Uni vers (VAGIFEM) 2-07 vagina ity of 10 mcg 00:00: every [place] tablet 00 night for Medical 2 weeks, Branch then every , , Tuesday pm. Estradiol 2019- Yes [id number] 1 per Uni vers (VAGIFEM) 2-07 vagina ity of 10 mcg 00:00: every [place] tablet 00 night for Medical 2 weeks, Branch then every , , Tuesday pm. Estradiol 2018- Yes [id number] 1 per Uni vers (VAGIFEM) 2-07 vagina ity of 10 mcg 00:00: every [place] tablet 00 night for Medical 2 weeks, Branch then every , , Tuesday pm. OXYBUTYNIN 2018- Yes 10mg 10 mg Univer s CHLORIDE, 2-06 daily. ity of BULK, MISC 14:47: [address] rosuvastati 2018-05 Yes Take by Uni vers n 10 mg 2-06 mouth ity of CpSP 14:47: daily. [address] rivaroxaban 2018-05 Yes Take by Uni vers (XARELTO) 2-06 mouth ity of 20 mg 14:47: daily. [address] OXYBUTYNIN 2018- Yes 10mg 10 mg Univer s CHLORIDE, 2-06 daily. ity of BULK, MISC 14:47: [address] rosuvastati 2018- Yes Take by Un juany n 10 mg 2-06 mouth ity of CpSP 14:47: daily. [address] rivaroxaban 2018- Yes Take by Uni vers (XARELTO) 2-06 mouth ity of 20 mg 14:47: daily. [address] OXYBUTYNIN 2019- Yes 10mg 10 mg Univer s CHLORIDE, 2-06 daily. ity of BULK, MISC 14:47: [address] rosuvastati 2018- Yes Take by Uni vers n 10 mg 2-06 mouth ity of CpSP 14:47: daily. [address] rivaroxaban 2018-05 Yes Take by Uni vers (XARELTO) 2-06 mouth ity of 20 mg 14:47: daily. [address] Nitroglycer Nitroglycer Yes Amber as Common in in 01-10 [place] directed Spirit 00:00: - [facility] 00 [facility] Nitroglycer Nitroglycer No Nitroglyce in 0.4 MG in 0.4 MG 01-10 rin 0.4 MG 00:00: 00 Nitroglycer Nitroglycer No Nitroglyce in 0.4 MG in 0.4 MG 01-10 rin 0.4 MG 00:00: 00 Penlac Penlac 2019- No Amber 1 Common 01-10 11- [place] applicatio Spi rit 00:00: 00:00 n to - CHI 00 :00 affected [facility] Glucerna Glucerna Yes Amber as Comm on 08-11 [place] directed Spirit 00:00: - [facility] 00 [facility] Glucerna - Glucerna - 2019-0 No Glucerna - - 00:00: 00 Glucerna - Glucerna - 2019-0 No Glucerna - 3-29 00:00: 00 Losartan Losartan 2017- Yes Amber 1/2 to 1 Common Potassium Potassium 2-12 [place] tablet Spirit 00:00: - [facility] 00 [facility] Amber 1 Common ne ne 3-19 [place] applicatio Spir it Acetonide Acetonide 00:00: n to - C HI 00 affected [facility] No 1{appli BID Triamcinol ne ne 3-19 cation_ one Acetonide Acetonide 00:00: to_affe Acetonide 0.1 % 0.1 % 00 cted_ar 0.1 % ea} [facility] No 1{appli BID Triamcinol ne ne 3-19 cation_ one Acetonide Acetonide 00:00: to_affe Acetonide 0.1 % 0.1 % 00 cted_ar 0.1 % ea} VICOPROFEN 2006- Yes 1 tab Q4-6 U nivers 7.5-200 MG 8-11 hours PRN ity of ORAL TAB 00:00: pain Medical Branch CEPHALEXIN 2007-0 Yes 1 tab PO Uni vers 500 MG ORAL 8-11 BID ity of CAP 00:00: [place] [facility] VICOPROFEN 2006-0 Yes 1 tab Q4-6 U nivers 7.5-200 MG 8-11 hours PRN ity of ORAL TAB 00:00: pain Medical Branch CEPHALEXIN 2006-0 Yes 1 tab PO Uni vers 500 MG ORAL 8-11 BID ity of CAP 00:00: [place] [facility] VICOPROFEN 2006-0 Yes 1 tab Q4-6 U nivers 7.5-200 MG 8-11 hours PRN ity of ORAL TAB 00:00: pain Medical Branch CEPHALEXIN 2006-0 Yes 1 tab PO Uni vers 500 MG ORAL 8-11 BID ity of CAP 00:00: [place] [facility] VICOPROFEN 2006-0 Yes 1 tab Q4-6 U nivers 7.5-200 MG 8-11 hours PRN ity of ORAL TAB 00:00: pain Medical Branch CEPHALEXIN 2006-0 Yes 1 tab PO Uni vers 500 MG ORAL 8-11 BID ity of CAP 00:00: [place] [facility] VICOPROFEN 2007-0 Yes 1 tab Q4-6 U nivers 7.5-200 MG 8-11 hours PRN ity of ORAL TAB 00:00: pain Medical Branch CEPHALEXIN 2007-0 Yes 1 tab PO Uni vers 500 MG ORAL 8-11 BID ity of CAP 00:00: [place] [facility] VICOPROFEN 2007-0 Yes 1 tab Q4-6 U nivers 7.5-200 MG 8-11 hours PRN ity of ORAL TAB 00:00: pain Medical Branch CEPHALEXIN 2007-0 Yes 1 tab PO Uni vers 500 MG ORAL 8-11 BID ity of CAP 00:00: [place] [facility] VICOPROFEN 2006-0 Yes 1 tab Q4-6 U nivers 7.5-200 MG 8-11 hours PRN ity of ORAL TAB 00:00: pain [place] [address] Medical Branch CEPHALEXIN 2006-0 Yes 1 tab PO Uni vers 500 MG ORAL 8-11 BID ity of CAP 00:00: [place] [facility] Xarelto Xarelto Yes Amber 1 tablet Comm on [place] in evening Spir it with food [facility] Calcium Calcium Yes Amber 600 mg>>>1 Co mmon [place] tablet [facility] Crestor Crestor Yes Amber 1 tablet Comm on [place] in evening [facility] Folic Acid Folic Acid Yes Amber 1 tablet Common Mill[place] [facility] Tylenol # 3 Tylenol # 3 Yes Amber 2 tablets Common [place] as needed [facility] Gabapentin Gabapentin Yes Amber 1 tablet Common [place] before Spirit bedtime [facility] Losartan Losartan Yes Amber TAKE 1/2 Co mmon Potassium Potassium [place] TO 1 Spirit TABLET BY - CHI MOUTH [facility] EVERY DAY [facility] NEED[facility] Medical FOR BLOOD Center PRESSURE GREATER THAN OR EQUAL TO 150/90 Vitamin B12 Vitamin B12 Yes Amber 1 tablet Common Millender [facility] Vitamin D Vitamin D Yes Amber 1 tablet Common Millender [facility] Multivitami Multivitami Yes Amber 1 tablet Common n n Millender [facility] Tramadol Tramadol Yes Amber 1 tablet Co mmon HCl HCl [place] as needed [facility] Gabapentin Gabapentin No 1{table QD Gabapentin 300 [...] # 3 No 2{table QID Tylenol # 30-500-15 30500-15 ts_as_n 3 MG MG eeded} 30500-15 MG Crestor 10 Crestor 10 No QD [...] # 3 No 2{table QID Tylenol # 500-15 30500-15 ts_as_n 3 MG MG eeded} 500-15 MG Multivitami Multivitami No 1{table QD Multivitam [...] 20 No QD Xarelto 20 Oxybutynin Oxybutynin Amber 1 tablet Common Chloride ER Chloride ER 05-17 [place] Spirit 00:00 - CHI :00 [facility] Immunizations Ordered Immunization Filled Immunization Date Status Commen ts Source Name Name Lenin Covid-19 2022-03-10 Completed Vaccine (Aged 12 years 00:00:00 and older) ([employer]) Moderna COVID-19 2021-08-25 Completed Vaccine 00:00:00 Moderna COVID-19 2020-10-31 Completed Vaccine 00:00:00 Moderna COVID-19 2020-08-26 Completed Vaccine 00:00:00 Vital Signs Vital Name Observation Time Observation Value Comments Source height 2021-05-28 15:30:00 61.50 [in_i] [facility] weight 2021-05-28 15:30:00 98 [lb_av] [facility] bmi 2021-05-28 15:30:00 18.22 kg/m2 Common S pirit - [facility] blood pressure 2021-05-28 15:30:00 111 mm[Hg] Common Spirit - systolic [facility] blood pressure 2021-05-28 15:30:00 79 mm[Hg] Common Spirit - diastolic [facility] height 2021-04-29 10:40:00 61.50 [in_i] [facility] weight 2021-04-29 10:40:00 98 [lb_av] Common S pirit - [facility] bmi 2021-04-29 10:40:00 18.22 kg/m2 Common S pirit - [facility] blood pressure 2021-04-29 10:40:00 120 mm[Hg] Common Spirit - systolic [facility] blood pressure 2021-04-29 10:40:00 80 mm[Hg] Common Spirit - diastolic [facility] Systolic blood 2019-11-29 18:14:00 112 mm[Hg] Univer sity of pressure [facility] Diastolic blood 2019-11-29 18:14:00 70 mm[Hg] Unive rsity of [facility] Heart rate 2019-11-29 18:14:00 73 /min Universi ty [facility] Respiratory rate 2019-11-29 18:14:00 18 /min [facility] Body height 2019-11-29 18:14:00 154.9 cm [facility] Body weight 2019-11-29 18:14:00 [facility]403 [facility] [place] BMI 2019-11-29 18:14:00 19.33 kg/m2 [facility] Systolic blood 2019-11-01 20:21:00 123 mm[Hg] Univer sity of pressure [facility] Diastolic blood 2019-11-01 20:21:00 73 mm[Hg] Unive rsity of pressure [facility] Heart rate 2019-11-01 20:21:00 85 /min Universi [facility] Body temperature 2019-11-01 20:21:00 36.83 Alondra [facility] Respiratory rate 2019-11-01 20:21:00 20 /min [facility] Body height 2019-11-01 20:21:00 152.4 cm [facility] Body weight 2019-11-01 20:21:00 44.815 kg [facility] BMI 2019-11-01 20:21:00 19.30 kg/m2 [facility] Oxygen saturation in 2019-11-01 20:21:00 98 /min University [facility] blood by [facility] Pulse oximetry Branch BP Systolic 2022-03-10 09:22:00 [...] POCT URINALYSIS AUTO 2019-11-01 20:27:00 Austin Begum [facility] REFERRAL- 2019-10-22 05:01:00 Doctor Unassigned, No Univer [facility] REQUEST/RESPONSE Name [facility] Plan of Care Planned Activity Planned Date Details Comments Source Goal Plan of Care Note [code = 41523-7] Goal Plan of Care Note [code = 76549-8] Goal Plan of Care Note [code = 57662-2] Goal Plan of Care Note [code = 64084-6] Goal Plan of Care Note [code = 57403-7] Goal Plan of Care Note [code = 42125-3] Goal Plan of Care Note [code = 11939-8] Goal Plan of Care Note [code = 05727-6] Goal Plan of Care Note [code = 82644-5] Goal Plan of Care Note [code = 06187-2] Goal Plan of Care Note [code = 95539-7] Goal Plan of Care Note [code = 17496-9] Encounters Start End Encounter Admission Attending Care Care Encounter Source Date/Time Date/Time Type Type Clinicians Facility Department ID 2021-06-11 Outpatient 3 RAAD SAMS [facility] 13:23:02 [facility]O [facility] [place] 2021-06-11 Outpatient 3 [id number] ENCPL REF [facility] 13:20:24 1119 [facility] [place] 2021-06-11 Outpatient 3 [id number] ENCPL REF [facility] 13:19:55 [facility] [place] 2021-06-10 Outpatient Pihll [facility] Common 14:25:16 Amber 03303 [facility] 2021-06-10 Outpatient Phill [facility] Common 14:24:25 Amber [id number] [facility] 2021-06-10 Outpatient Phill [facility] Common 14:23:55 Amber [id number] [facility] 2021-06-10 Outpatient Phill [facility] Common 14:22:19 Amber [id number] [facility] 2021-06-10 Outpatient Phill STLC [facility] Common 11:05:08 Amber 35304 [facility] 2021-04-20 Outpatient NEW ENCCLR ENCCLR [id number] EN CCLR 15:03:32 ADMISSION 2020-09-10 Inpatient Raslan, HCACL HCACL [id number] [facility] 16:16:13 Red 40 [facility] 2022-03-10 2022-03-10 Outpatient SFA SFA [id number] German 09:33:34 09:33:34 1026 F Isaias 2022-03-10 2022-03-10 Outpatient [id number] 00:00:00 00:00:00 Visit [id number] 2021-05-28 2021-05-28 Postop STLMLC STLMLC [id number] Co mmon 00:00:00 00:00:00 visit Spirit - [facility] 2021-04-23 2021-05-14 Outpatient JOSELIN YEUNG, ENCCLR ENCCLR [id number] ENCCLR 00:00:00 00:00:00 ADMISSION ZACARIAS 2021-04-29 2021-04-29 OFFICE STLMLC STLMLC [id number] Co mmon 00:00:00 00:00:00 VISIT EST Spir it PT LEVEL [address] [facility] 2020-05-28 2020-05-28 [facility] [id number] Univers 00:00:00 00:00:00 [facility] [id number] it y of [place] [id number] [place] [address] [id number] [facility] Primary & 204 Branch Specialty Care 2020-02-12 2020-02-12 [facility] [id number] Univers 00:00:00 00:00:00 [facility] [id number] it y of [place] [id number] [place] [address] [id number] [facility] Primary & 204 Branch Specialty Care 2019-11-29 2019-11-29 Office [facility] [id number] Univers 13:00:05 13:15:05 Visit [facility] [id number] it y of [place] [place] [id number] [facility] [phone] [facility] Primary & [facility] 2019-11-29 2019-11-29 Outpatient Jose [facility] [id number] Univers 13:15:00 13:15:[address] [facility] 2019-11-20 2019-11-20 Outpatient Jose [facility] [id number] Univers 15:00:00 15:00:[address] [facility] 2019-11-01 2019-11-01 [facility] [id number] Univers 15:03:30 15:35:53 Visit Austin Abimbola [id number] i ty [facility] [id number] [place] Professio [phone] K[place] dical nal [address] [place] [address] 2019-11-01 2019-11-01 Outpatient [facility] [id number] Univers 15:00:00 15:00:[address] [facility] 2019-10-22 2019-10-22 Orders Doctor SHERLYN [id number] Univers 00:00:00 00:00:00 Only Unassigned, MOODY [id number] ity of [facility] [id number] Jesse as [phone] [address] 2019-08-24 2019-08-24 Outpatient R [facility] [id number] Univers 15:00:00 15:00:00 [facility] 2019-08-24 2019-08-24 Outpatient R [facility] [id number] Univers 10:30:00 10:30:00 [facility] 2019-07-20 2019-07-20 [facility] [id number] Univers 09:30:00 09:30:[address] [facility] 2019-04-20 2019-04-20 Outpatient R [facility] [id number] Univers 08:30:00 09:44:[address] [facility] 2019-01-09 2019-01-09 [facility] [id number] Common 14:21:00 14:21:00 [facility] [address] [facility] 2019-01-03 2019-01-03 [facility] [id number] Common 16:00:00 16:00:00 [facility] [address] [facility] 2018-11-29 2018-11-29 Outpatient [facility] [id number] Common 10:44:00 10:44:[address] [facility] 2018-11-29 2018-11-29 [facility] [id number] Common 10:05:00 10:05:[address] [facility] 2018-11-28 2018-11-28 [facility] [id number] Common 14:40:00 14:40:[address] [facility] 2018-10-19 2018-10-19 [facility] [id number] Common 16:57:00 16:57:[address] [facility] 2018-08-16 2018-08-16 [facility] [id number] Common 14:42:00 14:42:[address] [facility] 2018-07-20 2018-07-20 [facility] [id number] Common 01:51:00 01:51:[address] [facility] 2018-07-19 2018-07-19 [facility] [id number] Common 16:00:00 16:00:[address] [facility] 2018-05-11 2018-05-11 [facility] [id number] Common 00:09:00 00:09:[address] [facility] 2018-05-04 2018-05-04 [facility] [id number] Common 08:24:00 08:24:[address] [facility] 2018-04-26 2018-04-26 [facility] [id number] Common 13:45:00 13:45:[address] [facility] 2018-02-28 2018-02-28 [facility] [id number] Common 11:00:00 11:00:[address] [facility] 2018-02-22 2018-02-22 Outpatient [facility] [id number] Common 20:22:00 20:22:[address] [facility] 2018-02-21 2018-02-21 Outpatient [facility] [id number] Common 13:00:00 13:00:[address] [facility] 2018-02-20 2018-02-20 [facility] [id number] Common 15:43:00 15:43:[address] [facility] 2018-02-01 2018-02-01 Outpatient [facility] [id number] Common 16:00:00 16:00:[address] [facility] 2017-11-18 2017-11-18 Outpatient [facility] [id number] Common 11:53:00 11:53:[address] [facility] 2017-11-07 2017-11-07 [facility] [id number] Common 22:32:00 22:32:[address] [facility] 2017-11-04 2017-11-04 [facility] [id number] Common 15:45:00 15:45:[address] [facility] 2017-08-01 2017-08-01 Out[facility] [id number] Common 11:45:00 11:45:[address] [facility] Results Test Description Test Time Test Comments Results Result Comments Source COMPREHENSIVE METABOLIC PANEL 2021-08-26 03:47:06 Test Item Value Reference Range Interpretation Comme nts GLUCOSE (test code = 2217) 98 MG/DL 70-99 BUN (test code = 2208) 22 MG/DL 8-23 CREATININE (test code = 0.81 MG/DL 0.60-1.30 4) eGFR (2020 CKD-EPI) (test 71 ML/MIN/1.73 >60 code = 62542) CALC BUN/CREAT (test code = 27 RATIO [...] code = 2204) AST (test code = 221) 26 U/L 9-40 ALT (test code = 2219) 13 U/L 5-40 LIPID [id number] 03:47:06 Test Item Value Reference Range Interpretation [...] MOREINFORMATION , SEE CLIENT ANNOUNCE MENT AT [email or web address] RISK RATIO LDL/HDL 1.44 RATIO <3.22 UNLESS O THERWISE (test code = 223) INDICATED , ALL TESTING PERFORMED [facility], [address] [place] [place] [address] [facility] DIRECTOR: Arsalan CHURCHIA NUMBER [id number] [facility] ACCREDITATION N O. [id number] COMPREHENSIVE METABOLIC PANEL [ADDED]2021-08-26 00:00:00 Test Item Value Reference Range Interpretation Comments GLUCOSE (test code = 2217) 98 MG/DL BUN (test code = 2208) 22 MG/DL CREATININE (test code = 2214) 0.81 MG/DL eGFR (2020 CKD-EPI) (test code 71 ML/MIN/1.73 = 42934) CALC BUN/CREAT (test code = 27 RATIO [...] BILIRUBIN, TOTAL (test code = 0.6 MG/DL 220) ALKALINE PHOSPHATASE (test 87 U/L code = 2204) AST (test code = 2218) 26 U/L ALT (test code = 2219) 13 U/L COMPREHENSIVE METABOLIC PANEL [ADDED]2021-08-26 00:00:00 Test Item Value Reference Range Interpretation Comments GLUCOSE (test code = 2217) 98 MG/DL BUN (test code = 2208) 22 MG/DL CREATININE (test code = 2214) 0.81 MG/DL eGFR (2020 CKD-EPI) (test code 71 ML/MIN/1.73 = 67015) CALC BUN/CREAT (test code = 27 RATIO [...] code = 1.44 RATIO 2238) CBC W/AUTO [id number] 00:00:00 Test Item Value Reference Range Interpretation [...] code = 1015) 196 K/UL CBC W/AUTO [id number] 00:00:00 Test Item Value Reference Range Interpretation [...] code = 1015) 196 K/UL CBC W/AUTO [id number] 00:00:00 Test Item Value Reference Range Interpretation [...] (test code = 1015) 196 K/UL LIPID [id number] 00:00:00 Test Item Value Reference Range Interpretation Comments CHOLESTEROL (test code = 2210) 125 MG/DL TRIGLYCERIDES (test code = 2232) 67 MG/DL HDL CHOLESTEROL (test code = 2220) 50 MG/DL CALC LDL CHOL (test code = 2237) 61 MG/DL RISK RATIO LDL/HDL (test code = 1.22 RATIO 2238) LIPID [id number] 00:00:00 Test Item Value Reference Range Interpretation Comments CHOLESTEROL (test code = 2210) 125 MG/DL TRIGLYCERIDES (test code = 2232) 67 MG/DL HDL CHOLESTEROL (test code = 2220) 50 MG/DL CALC LDL CHOL (test code = 2237) 61 MG/DL RISK RATIO LDL/HDL (test code = 1.22 RATIO 2238) COMPREHENSIVE METABOLIC [id number] 00:00:00 Test Item Value Reference Range Interpretation Comments GLUCOSE (test code = 2217) 95 MG/DL BUN (test code = 2208) 12 MG/DL CREATININE (test code = 2214) 0.76 MG/DL eGFR AMER. (test code 83 ML/MIN/1.73 = 84681) eGFR NON- AMER. (test 72 ML/MIN/1.73 code = 61182) CALC BUN/CREAT (test code = 16 RATIO [...] code = 2219) 15 U/L COMPREHENSIVE METABOLIC [id number] 00:00:00 Test Item Value Reference Range Interpretation Comments GLUCOSE (test code = 2217) 95 MG/DL BUN (test code = 2208) 12 MG/DL CREATININE (test code = 2214) 0.76 MG/DL eGFR AMER. (test code 83 ML/MIN/1.73 = 52309) eGFR NON- AMER. (test 72 ML/MIN/1.73 code = 03530) CALC BUN/CREAT (test code = 16 RATIO [...] code = 2219) 15 U/L POCT URINALYSIS, [id number] 20:28:00 Test Item Value Reference Range Interpretation [...] 3267) Lab Interpretation (test code Abnormal = 98332-9) [facility] [id number] 20:28:00 Test Item Value Reference Range Interpretation [...] 3267) Lab Interpretation (test code Abnormal = 67596-0) [facility] DIFF/PLT)2019-10-16 00:00:00 Test Item Value Reference [...] BAND NEUTROPHILS DNR cells/uL (test code = 26570-5) ABSOLUTE METAMYELOCYTES (test DNR cells/uL code = 16108-4) ABSOLUTE MYELOCYTES (test DNR cells/uL code = 80807-5) ABSOLUTE PROMYELOCYTES (test DNR cells/uL code = 35008-7) ABSOLUTE LYMPHOCYTES (test 1771 cells/uL code = 731-0) ABSOLUTE MONOCYTES (test code 626 cells/uL = 742-7) ABSOLUTE EOSINOPHILS (test 130 cells/uL code = 711-2) ABSOLUTE BASOPHILS (test code 29 cells/uL = 704-7) ABSOLUTE BLASTS (test code = DNR cells/uL 36246-9) ABSOLUTE NUCLEATED RBC (test DNR cells/uL code = 52728-5) NEUTROPHILS (test code = 64.5 % 770-8) BAND NEUTROPHILS (test code = DNR % 764-1) METAMYELOCYTES (test code = DNR % 740-1) MYELOCYTES (test code = DNR % 749-2) PROMYELOCYTES (test code = DNR % 783-1) LYMPHOCYTES (test code = 24.6 % 736-9) REACTIVE LYMPHOCYTES (test DNR % code = 08505-3) MONOCYTES (test code = 8.7 % 5905-5) EOSINOPHILS (test code = 1.8 % 713-8) BASOPHILS (test code = 706-2) 0.4 % BLASTS (test code = 709-6) DNR % NUCLEATED RBC (test code = DNR /100WBC 70006-0) COMMENT(S) (test code = DNR 8251-1) COMPREHENSIVE METABOLIC [id number] 00:00:00 Test Item Value Reference Range Interpretation Comments GLUCOSE (test code = 84 mg/dL 2345-7) UREA NITROGEN (BUN) 14 mg/dL (test code = 3094-0) CREATININE (test code = 0.68 mg/dL 2160-0) eGFR NON-AFR. CITIZEN [place] 80 mL/min/1.73m2 (test code = 33991-9) eGFR 93 mL/min/1.73m2 (test code = 06565-5) BUN/CREATININE RATIO NOT APPLICABLE (calc) (test code = 3097-3) SODIUM (test code = 138 mmol/L 2951-2) POTASSIUM (test code = 4.1 mmol/L 2823-3) CHLORIDE (test code = 103 mmol/L 2075-0) CARBON DIOXIDE (test 29 mmol/L code = 2027-9) CALCIUM (test code = 10.1 mg/dL 49513-4) PROTEIN, TOTAL (test 7.5 g/dL code = 2885-2) ALBUMIN (test code = 4.6 g/dL 1751-7) GLOBULIN (test code = 2.9 g/dL(calc) 96757-6) ALBUMIN/GLOBULIN RATIO 1.6 (calc) (test code = [...] HDL CHOLESTEROL (test code = 50 mg/dL 2085-9) TRIGLYCERIDES (test code = 69 mg/dL 2571-8) LDL-CHOLESTEROL (test code = 67 mg/dL(calc) 62316-9) CHOL/HDLC RATIO (test code = 2.6 (calc) 9830-1) NON HDL CHOLESTEROL (test code 82 mg/dL(calc) = 10613-4)
[2022-04-23] MEDS ORDERED: dexAMETHasone 10 MG/ML VIAL ONE (05:52)
[2022-04-23] MEDS ORDERED: ONDANSETRON 4 MG/2 ML VIAL ONE (05:52)
[2022-04-23] MEDS ORDERED: FENTANYL CITR 100 MCG/2 ML ONE ×2 (05:52→13:55)
[2022-04-23 06:02] LABS: Urine Blood 1+ (Negative); Urine Glucose Negative (Negative); Urine Protein Negative (Negative); Urine Specific Gravity 1.015 (1.005-1.030); Urine pH 6.5 (5.0-7.0)
[2022-04-23 06:03] LABS: Absolute Lymphocytes (CBC) 1.3 K/uL (0.7-4.9); Hematocrit 44.1 % (36.0-45.0); Lymphocytes % 15.4 % (15.3-44.8); MCV 94.2 fL (80-100); MPV 7.8 fL (7.6-11.3); RBC Red Blood Cell Count 4.68 M/uL (3.86-4.86)
[2022-04-23 06:08] LABS: Protime INR 2.02
[2022-04-23 06:24] LABS: Urine Bacteria <20 /HPF (<20); Urine RBC <5 /HPF (None Seen)
[2022-04-23 07:49] LABS: Albumin 3.7 g/dL (3.4-5.0); Bilirubin Direct 0.4 mg/dL (0-0.2); Potassium 3.8 mmol/L (3.5-5.1); Troponin High Sensitivity 20.4 pg/mL (<58.9)
--- NOTE | 2022-04-23 08:00 | ER ---
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 as6 when asked pt to rate pain pt states "I don't know. it hurts pretty bad". Coronavirus screen: At this time, the client does not indicate any symptoms associated with coronavirus-19. Ebola Screen: No symptoms or risks identified at this time. Initial Sepsis Screen: Does the patient meet any 2 criteria? No. Patient's initial sepsis screen is negative. Does the patient have a suspected source of infection? No. Patient's initial sepsis screen is negative. Risk Assessment: Do you want to hurt yourself or someone else? Patient reports no desire to harm self or others. Onset of symptoms was April 16, 2022. 05:28 Method Of Arrival: EMS as6 05:28 Acuity: TAYLA 3 as6 Historical: - Allergies: 05:49 Latex, Natural Rubber; as6 - Home Meds: 05:49 Xarelto 20 mg Oral tab 1 tab once daily [Active]; omeprazole 40 mg Oral cpDR 1 cap once as6 daily [Active]; rosuvastatin 10 mg Oral tab 1 tab once daily [Active]; oxybutynin chloride 10 mg Oral tr24 1 tab once daily [Active]; gabapentin oral [Active]; - PMHx: 05:49 Atrial fibrillation; Hyperlipidemia; Hypertensive disorder; as6 - PSHx: 05:49 partial hysterectomy; as6 - Immunization history:: Client reports having NOT received the Covid vaccine. Flu vaccine is not up to date. - Social history:: Smoking status: Patient reports the use of cigarette tobacco products, denies chronic smoking, but will smoke occasionally. - Family history:: not pertinent. Screenin:54 Abuse screen: Denies threats or abuse. Denies injuries from another. Nutritional as6 screening: No deficits noted. Tuberculosis screening: No symptoms or risk factors identified. Fall Risk Fall in past 12 months (25 points). Assessment: 05:54 General: Appears uncomfortable, Behavior is calm, cooperative. Pain: Complains of pain as6 in low back area. Neuro: Level of Consciousness is awake, alert, obeys commands, Oriented to person, place, time, situation. Cardiovascular: Capillary refill < 3 seconds Patient's skin is warm and dry. Respiratory: Respiratory effort is even, unlabored. Musculoskeletal: Reports pain in low back area. 11:49 Reassessment: Patient appears in no apparent distress at this time. Awaiting for a bed ss to become available at [facility]. 13:35 Reassessment: Report given to SUSHANT Mendes at [facility]. Pt to go to room 2226. ss 14:11 General: Reports given to [facility] for pt transport to [facility]. kb3 Vital Signs: 05:28 BP 183 / 90; Pulse 84; Resp 16 S; Temp 98.2(O); Pulse Ox 92% on R/A; Weight 45.36 kg as6 (R); Height 5 ft. 2 in. (157.48 cm) (R); Pain 10/10; 13:32 BP 149 / 68; zm 13:35 Resp 16; Pulse Ox 96% on R/A; ss 13:44 Pulse 80; ss 14:00 BP 148 / 68; Pulse 78; Resp 18; Pulse Ox 98% ; kb3 05:28 Body Mass Index 18.29 (45.36 kg, 157.48 cm) as6 ED Course: 05:10 Patient arrived in ED. beatrice 05:28 Bossman Thomas, SUSHANT is Primary Nurse. as6 05:28 Corey Muniz MD is Attending Physician. beatrice 05:49 Triage completed. as6 05:52 Arm band placed on. as6 05:55 Placed in gown. Bed in low position. Call light in reach. Side rails up X2. as6 06:02 Urine Microscopic Only Sent. jb4 06:02 Lipase Sent. jb4 06:03 Basic Metabolic Panel Sent. jb4 06:03 LFT's Sent. jb4 06:03 CBC with Diff Sent. jb4 06:03 Magnesium Sent. jb4 06:04 NT PRO-BNP Sent. jb4 06:04 PT-INR Sent. jb4 06:04 Troponin HS Sent. jb4 06:07 Inserted saline lock: 22 gauge in right forearm, using aseptic technique. Blood ds4 collected. 06:15 XRAY Chest (1 view) In Process Unspecified. EDMS 06:15 Pelvis XRAY In Process Unspecified. EDMS 06:46 CT Traumagram (Head C Spine CAP wo con) In Process Unspecified. EDMS 07:57 initiated a transfer with Bassam Duran Rn from the [facility]. eb 09:14 connected the Hospitalist from [facility] with Cecile MENDEZ for patient eb transfer consultation. 13:00 administrative approval given by Bassam Irwin/ patient has been accepted to [facility] rm 2226/ Dr. Manfred Davis has accepted the patient in transfer/ report to be called to [phone]. 13:43 No provider procedures requiring assistance completed. Patient transferred, IV remains ss in place. Administered Medications: 05:32 CANCELLED (Duplicate Order): morphine 2 mg IVP once over 4 mins beatrice 05:32 CANCELLED (Duplicate Order): morphine 2 mg IVP once over 4 mins beatrice 06:05 Drug: Decadron - Dexamethasone 10 mg Route: IVP; Site: right forearm; tw5 07:00 Follow up: Response: No adverse reaction kb3 06:05 Drug: fentaNYL (PF) 50 mcg Route: IVP; Site: right forearm; tw5 07:00 Follow up: Response: No adverse reaction; Pain is decreased kb3 06:06 Drug: Zofran (Ondansetron) 4 mg Route: IVP; Site: right forearm; tw5 07:00 Follow up: Response: No adverse reaction kb3 09:45 Drug: Rocephin (cefTRIAXone) 1 grams Route: IV; Rate: per protocol; Site: right ss antecubital; 10:30 Follow up: Response: No adverse reaction; IV Status: Completed infusion kb3 14:00 Drug: fentaNYL (PF) 50 mcg Route: IVP; Site: right forearm; kb3 14:12 Follow up: Response: No adverse reaction; Pain is decreased kb3 Medication: 05:55 VIS not applicable for this client. as6 Outcome: 07:59 ER care complete, transfer ordered by . betarice 13:43 Instructed on the need for transfer. 14:19 Transferred by ground EMS to [facility], Transfer form completed. kb3 X-rays sent w/ patient. 14:19 Condition: stable 14:19 Patient left the ED. kb3 Signatures: Dispatcher [employer] EDMS Corey Muniz MD MD cha Smirch, Shelby, RN RN Basil Ovalle ds4 Murphy Barraza RN RN jb4 Betsy Ayala Tiffany tw5 Bossman Thomas RN RN as6 Fransisca Baer Kelly, RN RN kb3 Corrections: (The following items were deleted from the chart) 06:05 06:04 fentaNYL (PF) 50 mcg IVP in left forearm tw5 tw5 06:05 06:04 Decadron - Dexamethasone 10 mg IVP in left forearm tw5 tw5 06:06 06:04 Zofran (Ondansetron) 4 mg IVP in left forearm tw5 tw5
--- NOTE | 2022-04-23 08:00 | EDPHYS ---
Physician Documentation [facility] Name: Maureen Martin Age: 86 yrs Sex: Female : 1935 Arrival Date: 04/23/2022 Time: 05:10 Bed 10 Private MD: [place] Physician Corey Muniz HPI: 04/23 06:54 This 86 yrs old Female presents to ER via EMS with complaints of Back Pain. beatrice 06:54 The patient presents with pain that is acute. The symptoms are located in the low back, beatrice lumbar area. Onset: The symptoms/episode began/occurred 3 day(s) ago. The pain does not radiate. Associated signs and symptoms: The patient has no apparent associated signs or symptoms. The problem was sustained during a fall. Modifying factors: The patient symptoms are alleviated by remaining still, the patient symptoms are aggravated by lifting, movement. Severity of symptoms: At their worst the symptoms were mild, in the emergency department the symptoms are unchanged. Historical: - Allergies: 05:49 Latex, Natural Rubber; as6 - Home Meds: 05:49 Xarelto 20 mg Oral tab 1 tab once daily [Active]; omeprazole 40 mg Oral cpDR 1 cap once as6 daily [Active]; rosuvastatin 10 mg Oral tab 1 tab once daily [Active]; oxybutynin chloride 10 mg Oral tr24 1 tab once daily [Active]; gabapentin oral [Active]; - PMHx: 05:49 Atrial fibrillation; Hyperlipidemia; Hypertensive disorder; as6 - PSHx: 05:49 partial hysterectomy; as6 - Immunization history:: Client reports having NOT received the Covid vaccine. Flu vaccine is not up to date. - Social history:: Smoking status: Patient reports the use of cigarette tobacco products, denies chronic smoking, but will smoke occasionally. - Family history:: not pertinent. ROS: 06:54 Constitutional: Negative for fever, chills, and weight loss, Eyes: Negative for injury, beatrice pain, redness, and discharge, ENT: Negative for injury, pain, and discharge, Neck: Negative for injury, pain, and swelling, Cardiovascular: Negative for chest pain, palpitations, and edema, Respiratory: Negative for shortness of breath, cough, wheezing, and pleuritic chest pain, Abdomen/GI: Negative for abdominal pain, nausea, vomiting, diarrhea, and constipation, : Negative for injury, bleeding, discharge, and swelling, MS/Extremity: Negative for injury and deformity, Skin: Negative for injury, rash, and discoloration, Neuro: Negative for headache, weakness, numbness, tingling, and seizure, Psych: Negative for depression, anxiety, suicide ideation, homicidal ideation, and hallucinations, Allergy/Immunology: Negative for hives, rash, and allergies, Endocrine: Negative for neck swelling, polydipsia, polyuria, polyphagia, and marked weight changes, Hematologic/Lymphatic: Negative for swollen nodes, abnormal bleeding, and unusual bruising. 06:54 Back: Positive for injury or acute deformity, decreased range of motion, pain at rest. Exam: 06:54 Constitutional: This is a well developed, well nourished patient who is awake, alert, beatrice and in no acute distress. Head/Face: Normocephalic, atraumatic. Eyes: Pupils equal round and reactive to light, extra-ocular motions intact. Lids and lashes normal. Conjunctiva and sclera are non-icteric and not injected. Cornea within normal limits. Periorbital areas with no swelling, redness, or edema. ENT: Nares patent. No nasal discharge, no septal abnormalities noted. Tympanic membranes are normal and external auditory canals are clear. Oropharynx with no redness, swelling, or masses, exudates, or evidence of obstruction, uvula midline. Mucous membranes moist. Neck: Trachea midline, no thyromegaly or masses palpated, and no cervical lymphadenopathy. Supple, full range of motion without nuchal rigidity, or vertebral point tenderness. No Meningismus. Chest/axilla: Normal chest wall appearance and motion. Nontender with no deformity. No lesions are appreciated. Cardiovascular: Regular rate and rhythm with a normal S1 and S2. No gallops, murmurs, or rubs. Normal PMI, no JVD. No pulse deficits. Respiratory: Lungs have equal breath sounds bilaterally, clear to auscultation and percussion. No rales, rhonchi or wheezes noted. No increased work of breathing, no retractions or nasal flaring. Abdomen/GI: Soft, non-tender, with normal bowel sounds. No distension or tympany. No guarding or rebound. No evidence of tenderness throughout. Skin: Warm, dry with normal turgor. Normal color with no rashes, no lesions, and no evidence of cellulitis. MS/ Extremity: Pulses equal, no cyanosis. Neurovascular intact. Full, normal range of motion. Neuro: Awake and alert, GCS 15, oriented to person, place, time, and situation. Cranial nerves II-XII grossly intact. Motor strength 5/5 in all extremities. Sensory grossly intact. Cerebellar exam normal. Normal gait. Psych: Awake, alert, with orientation to person, place and time. Behavior, mood, and affect are within normal limits. 06:54 ECG was reviewed by the Attending Physician. 06:54 Back: pain, that is moderate, ROM is painful, normal spinal alignment noted, CVA tenderness, is absent, vertebral tenderness, is not appreciated, muscle spasm, is appreciated in the left low back, left mid back, right mid back and right low back. Vital Signs: 05:28 BP 183 / 90; Pulse 84; Resp 16 S; Temp 98.2(O); Pulse Ox 92% on R/A; Weight 45.36 kg as6 (R); Height 5 ft. 2 in. (157.48 cm) (R); Pain 10/10; 13:32 BP 149 / 68; zm 13:35 Resp 16; Pulse Ox 96% on R/A; ss 13:44 Pulse 80; ss 14:00 BP 148 / 68; Pulse 78; Resp 18; Pulse Ox 98% ; kb3 05:28 Body Mass Index 18.29 (45.36 kg, 157.48 cm) as6 MDM: 05:28 Patient medically screened. beatrice 06:58 Differential diagnosis: Cholelithiasis chronic back pain, Fatigue Fracture beatrice Hydronephrosis Ligament Injury Obesity Peptic Ulcer Pyelonephritis ruptured disc, Scoliosis spinal injury, sprain, Ureterolithiasis vertebral fracture. Data reviewed: vital signs, nurses notes, lab test result(s), EKG, radiologic studies, CT scan, plain films. Data interpreted: color television console monitor: rate is 84 beats/min, rhythm is regular. Test interpretation: by ED physician or midlevel provider: ECG, plain radiologic studies. Counseling: I had a detailed discussion with the patient and/or guardian regarding: the historical points, exam findings, and any diagnostic results supporting the discharge/admit diagnosis, lab results, radiology results, the need for outpatient follow up, for definitive care, a family practitioner, a neurologist. 09:20 Physician consultation: Dr Davis was contacted at 09:20, regarding regarding transfer, snw to [facility]. patient's condition, discussed ED findings, need for transfer, plan of care with Dr. Davis, hospitalist [facility]. Dr. Davis kindly accepts pt in transfer. 04/23 05:31 Order name: Basic Metabolic Panel; Complete Time: 07:54 [facility] 04/23 05:31 Order name: CBC with Diff; Complete Time: 07:54 [facility] 04/23 05:31 Order name: LFT's; Complete Time: 07:54 [facility] 04/23 05:31 Order name: Magnesium; Complete Time: 07:54 [facility] 04/23 05:31 Order name: NT PRO-BNP; Complete Time: 07:54 [facility] 04/23 05:31 Order name: PT-INR; Complete Time: 07:54 [facility] 04/23 05:31 Order name: Troponin HS; Complete Time: 07:54 [facility] 04/23 05:31 Order name: XRAY Chest (1 view) [facility] 04/23 05:31 Order name: Lipase; Complete Time: 07:54 [facility] 04/23 05:31 Order name: Urine Microscopic Only; Complete Time: 07:54 [facility] 04/23 05:31 Order name: CT Traumagram (Head C Spine CAP wo con) [facility] 04/23 06:02 Order name: Urine Dipstick-Ancillary; Complete Time: 07:54 EDFL 04/23 07:56 Order name: Urine Culture [facility] 04/23 07:59 Order name: SARS RAPID; Complete Time: 09:16 eb 04/23 05:31 Order name: EKG; Complete Time: 05:32 [facility] 04/23 05:31 Order name: Cardiac monitoring; Complete Time: 06:51 [facility] 04/23 05:31 Order name: EKG - Nurse/Tech; Complete Time: 06:51 [facility] 04/23 05:31 Order name: IV Saline Lock; Complete Time: 06:03 [facility] 04/23 05:31 Order name: Labs collected and sent; Complete Time: 06:03 [facility] 04/23 05:31 Order name: O2 Per Protocol; Complete Time: 06:04 [facility] 04/23 05:31 Order name: O2 Sat Monitoring; Complete Time: 06:03 [facility] 04/23 05:31 Order name: Urine Dipstick-Ancillary (obtain specimen); Complete Time: 06:05 [facility] 04/23 05:32 Order name: Pelvis XRAY [facility] 04/23 06:24 Order name: Labs - recollect needed: recollect chemistries not enough in tube; Complete eb Time: 07:20 EC:54 Rate is 64 beats/min. Rhythm is irregularly irregular. QRS [place] is Normal. NE interval beatrice is normal. QRS interval is normal. QT interval is normal. No Q waves. T waves are Normal. No ST changes noted. Clinical impression: Atrial Fibrillation and No evidence of ischemia. Interpreted by me. Reviewed by me. Administered Medications: 05:32 CANCELLED (Duplicate Order): morphine 2 mg IVP once over 4 mins beatrice 05:32 CANCELLED (Duplicate Order): morphine 2 mg IVP once over 4 mins beatrice 06:05 Drug: Decadron - Dexamethasone 10 mg Route: IVP; Site: right forearm; tw5 07:00 Follow up: Response: No adverse reaction kb3 06:05 Drug: fentaNYL (PF) 50 mcg Route: IVP; Site: right forearm; tw5 07:00 Follow up: Response: No adverse reaction; Pain is decreased kb3 06:06 Drug: Zofran (Ondansetron) 4 mg Route: IVP; Site: right forearm; tw5 07:00 Follow up: Response: No adverse reaction kb3 09:45 Drug: Rocephin (cefTRIAXone) 1 grams Route: IV; Rate: per protocol; Site: right ss antecubital; 10:30 Follow up: Response: No adverse reaction; IV Status: Completed infusion kb3 14:00 Drug: fentaNYL (PF) 50 mcg Route: IVP; Site: right forearm; kb3 14:12 Follow up: Response: No adverse reaction; Pain is decreased kb3 Disposition Summary: 04/23/22 07:59 Transfer Ordered Transfer Location: [facility] beatrice Reason: Higher level of care beatrice Condition: Stable beatrice Problem: new beatrice Symptoms: have worsened beatrice Accepting Physician: ROZ WINTERS PER PT CHOICE, NEURO SPINE(04/23/22 14:19) kb3 Diagnosis - Fall on same level, unspecified beatrice - Fracture of thoracic vertebra - T12 BURST, WITH RETROPULSION beatrice - custodial (current) use of anticoagulants beatrice - Chronic atrial fibrillation beatrice - UTI/ Urinary tract infection, site not specified beatrice Discharge Instructions: - Discharge Summary Sheet beatrice - Atrial Fibrillation beatrice - Acute Back Pain, Adult beatrice - Chronic Back Pain beatrice - Musculoskeletal Pain beatrice - Chronic Back Pain, [id number] beatrice Forms: - Medication Reconciliation Form beatrice - SBAR form [facility] Prescriptions: - Tramadol 50 mg Oral Tablet - take 2 tablet by ORAL route every 8 hours as needed; 26 tablet; Refills: 0, beatrice Product Selection Permitted - Cyclobenzaprine 5 mg Oral Tablet - take 1 tablet by ORAL route 3 times per day As needed; 15 tablet; Refills: 0, beatrice Product Selection Permitted - dexamethasone 2 mg Oral tablet - take 1 tablet by ORAL route every 12 hours; 10 tablet; Refills: 0, Product beatrice Selection Permitted Signatures: Dispatcher [employer] EDMS Corey Muniz MD MD cha Waters, Shelly, MACHINIST OUTSIDE-C MACHINIST OUTSIDE-[place] Minal Staton RN RN ss Betsy Ayala Tiffany tw5 Bossman Thomas RN RN as6 Jelena Nails RN RN kb3 Ty Larson MD MD rt Corrections: (The following items were deleted from the chart) 05:32 05:31 morphine 2 mg IVP once over 4 mins ordered. beatrice beatrice 05:32 05:31 morphine 2 mg IVP once over 4 mins ordered. beatrice beatrice 08:00 07:59 TO VIANEY PER PT CHOICE, NEURO SPINE beatrice beatrice 08:00 08:00 TO VIANEY PER PT CHOICE, NEURO SPINE beatrice [facility] 14:19 08:00 TO VIANEY PER PT CHOICE, NEURO SPINE beatrice kb3
[2022-04-23 08:42] LABS: SARS-CoV-2 Antigen Rapid Res Negative (Negative)
--- NOTE | 2022-04-23 09:04 | RAD REPORT ---
EXAM DESCRIPTION: 1. CT HEAD without IV contrast. 2. CT CERVICAL SPINE without IV contrast. 3. CT CHEST without IV contrast 4. CT ABDOMEN AND PELVIS without IV contrast CLINICAL HISTORY: 86 years Female fall TECHNIQUE: Multiple axial CT images of the brain, cervical spine, chest, abdomen and pelvis were per formed followed by sagittal and coronal reconstructed images. The CT study is performed according to ALARA (as low as reasonably achievable) or ALARA/IMAGE GENTLY, with automatic adjustment of mA and/or kV according to patient size. Performed on: 04/23/2022 at 6:31 AM COMPARISON: CT cervical spine report from 07/18/2018. The images were unavailable for review.. FINDINGS: CT HEAD: There is no evidence of mass, acute mass effect or midline shift. There are no acute extra-axial flui d collections. There is no evidence of acute intracranial hemorrhage. The cerebral sulci and ventricles are prominent consistent with moderate cerebral volume loss. There are scattered areas of decreased attenuation within the subcortical and periventricular white m atter most consistent with chronic moderate microangiopathy. There are atherosclerotic calcifications along the cavernous carotid arteries. There is no significant mucosal thickening of the paranasal sinuses. The mastoid air cells are clear. The orbital contents are grossly unremarkable. No acute osseous abnormalities are identified. No focal soft tissue abnormalities are identified. CT CERVICAL SPINE: The cervical vertebrae are normal in height. There is straightening of the normal cervical lordosis l ikely due to either patient positioning, muscle spasm or degenerative changes which are best apprecia jean pierre from C4-C5 and C6-C7. There is mild to moderate disc space narrowing from C4-C5 through C6-C7 wit h associated degenerative spurring of the vertebral endplates and prominent disc osteophyte complexes . Bone mineralization is normal. The atlanto-axial articulation is preserved and the odontoid pr ocess is intact. There is normal alignment of the facet joints on the parasagittal images. There are mild to moderate degenerative changes of the facet joints. There is no evidence of acute fracture or subluxation. There is C4-C5 through C6-C7 canal stenosis se condary to prominent disc osteophyte complexes. There is multilevel bilateral neural foraminal sten osis secondary to uncovertebral joint and facet joint hypertrophy. The paravertebral and paraspinal soft tissues are unremarkable. The lung apices are clear. CHEST: Lungs: The lungs are well expanded. There is mild bibasilar dependent atelectasis and/or fibrosis. Th ere may be trace bilateral pleural effusions. There is no pneumothorax. Central airways are patent. Heart: The heart is top normal in size. There are mild coronary artery calcifications. There is n o pericardial effusion. Mediastinum: There are calcified left hilar lymph nodes. The mediastinal vessels are normal in lucretia oskar and contour. There are atherosclerotic calcifications along the thoracic aorta. Bones: There is an acute compression fracture of T12 resulting in approximately 30% loss of height. T here is bowing of the posterior cortex consistent with a burst fracture with approximately 3 mm of re tropulsion of bone into the spinal canal. No definite additional acute osseous abnormalities are iden tified. The sternum is intact. The bony thorax is intact. There are degenerative changes along the th oracic spine. Soft tissues: No focal soft tissue abnormalities are identified. The thyroid gland is grossly normal in size and configuration. Lymphadenopathy: No pathologic hilar, mediastinal or axillary lymphadenopathy is identified. As not ed above, there are calcified left hilar lymph nodes consistent with prior granulomatous disease. ABDOMEN/PELVIS: Liver: The liver is normal in size and configuration. No focal hepatic abnormalities are identified. Liver attenuation is within normal limits. There are a few punctate calcified granulomas within the l iver. Spleen: The spleen is normal is size, configuration and attenuation. There are multiple calcified spl enic granulomas. Gallbladder and bile duct: The gallbladder is moderately distended but is otherwise grossly unremar kable. There is no biliary ductal dilatation. Pancreas: The pancreas is grossly normal in size and configuration. Adrenal Glands: The adrenal glands are normal in size and configuration. Kidneys: The kidneys are normal in size and configuration. There is no evidence of hydronephrosis. Th ere is no evidence of nephrolithiasis. No definite solid or cystic renal mass lesions are identified. Stomach: The stomach is grossly normal. There is no definite hiatal hernia. Bowel: The bowel gas pattern is non specific and non obstructive. There is moderate fecal residue sca ttered throughout the colon. Appendix: The appendix is normal. Free air: There is no evidence of free air. Free fluid: There is no evidence of free fluid. Vasculature: The aorta is normal in caliber and contour. There are moderate to marked atherosclerotic calcifications along the abdominal aorta and major branch vessels. The inferior vena cava is grossly unremarkable. Lymphadenopathy: No pathologic lymphadenopathy is identified. Bladder: The bladder is well distended and smooth in contour. Reproductive: The uterus is surgically absent. Bones: No acute osseous abnormalities are identified involving the lumbar spine. There is a 30% compr ession fracture of T12 with disruption of the posterior cortex consistent with a burst fracture with approximately 3 mm of retropulsion of bone into the spinal canal. There are remote postsurgical jain es of the proximal left femur. Indwelling hardware appears intact without definite failure. There is no evidence of acute osseous injury involving the pelvis or hips. Soft tissues: No acute soft tissue abnormalities are identified. IMPRESSION: CT HEAD: 1. No evidence of acute intracranial pathology. 2. 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 CT CERVICAL SPINE: 1. No evidence of acute osseous injury involving the cervical spine. 2. Straightening of the normal cervical lordosis likely due to either patient positioning, muscle s pasm or degenerative changes. 3. Mild to moderate disc space narrowing from C4-C5 through C6-C7 with prominent disc osteophyte co mplexes resulting in canal stenosis and multilevel bilateral neural foraminal stenosis. CT CHEST: 1. No evidence of acute intrathoracic disease. There may be trace bilateral pleural effusions and m inimal bibasilar dependent atelectasis. 2. Evidence of prior granulomatous disease. CT ABDOMEN AND PELVIS: 1. No evidence of acute intra-abdominal or intrapelvic pathology. 2. There is a burst fracture of T12 resulting in approximately 30% loss of height with approximatel y 3 mm of retropulsion of bone into the spinal canal. 3. Evidence of prior granulomatous disease. 4. Moderate fecal residue scattered throughout the colon. 5. Moderate to marked atherosclerotic calcifications along the abdominal aorta and major branch ves sels. 6. Prior hysterectomy. 7. Remote postsurgical changes of the proximal left femur. These critical findings were discussed with Dr. Muniz on 04/23/2022 at 7:35 AM central time. Electronically signed by: Ramona Gonsales DO 04/23/2022 7:35 AM BROACH GRINDER Due to temporary technical issues with the PACS/Fluency reporting system, reports are being signed by the in house radiologists without review as a courtesy to insure prompt reporting. The interpreting radiologist is fully responsible for the content of the report.
[2022-04-23] MEDS ORDERED: NA CHLORIDE 0.9% 100 ML IV ONE (09:41)
[2022-04-23] MEDS ORDERED: CEFTRIAXONE 1000 MG/VIAL ONE (09:41)
--- NOTE | 2022-04-23 15:23 | RAD REPORT ---
EXAM DESCRIPTION: Chest Radiography COMPARISON: None. CLINICAL HISTORY: [facility] FINDINGS: A single AP view of the chest demonstrates a normal cardiomediastinal silhouette. Calcifie d hilar granulomas are present. Aortic atherosclerosis. No pneumothorax or pleural effusion. No consolidation or pulmonary edema. Bibasilar fibrotic changes. Osseous structures are intact. IMPRESSION: No acute chest process. Electronically signed by: Tien Sneed MD 04/23/2022 6:54 AM SUPERVISING ARCHITECT Due to temporary technical issues with the PACS/Fluency reporting system, reports are being signed by the in house radiologists without review as a courtesy to insure prompt reporting. The interpreting radiologist is fully responsible for the content of the report.
--- NOTE | 2022-04-23 15:25 | RAD REPORT ---
EXAM DESCRIPTION: X-ray pelvis 1 view CLINICAL HISTORY: 86 years Female PAIN TECHNIQUE: One x-ray view of the pelvis was performed on 04/23/2022 at 6:04 AM. COMPARISONS: No prior images were available for comparison. FINDINGS: There are remote postsurgical changes of the proximal left femur consistent with open redu ction and internal fixation utilizing 3 cortical screws. There is no evidence of acute fracture or di slocation. No pathologic lytic or sclerotic bone lesions are identified. There are mild degenerative changes of the visualized lower lumbar spine. No significant arthritic changes are identified. Bone mineralization is within normal limits. No acute soft tissue abnormalities are identified. Occasional vascular calcifications are noted. IMPRESSION: No evidence of acute osseous injury. Remote ORIF proximal left femur without definite gorman rdware failure. Electronically signed by: Ramona Gonsales DO 04/23/2022 6:56 AM APPLICATIONS PACKAGER Due to temporary technical issues with the PACS/Fluency reporting system, reports are being signed b y the in house radiologists without review as a courtesy to insure prompt reporting. The interpreting radiologist is fully responsible for the content of the report.
[2022-04-23 16:10] VITALS: TEMP 98.2
[2022-04-23 16:13] VITALS: BP 148/68; O2SAT 98
--- NOTE | 2022-04-23 17:36 | EKG ---
Test Date: 2022-04-23 Test Time: 06:47:33 Field Installation Technician: ZANDER MEASUREMENT RESULTS: Intervals: Rate: 64 DE: QRSD: 132 QT: 468 QTc: 482 [place]: P: DE: QRS: -39 T: 117 INTERPRETIVE STATEMENTS: Atrial fibrillation Left axis deviation Left bundle branch block Abnormal ECG Compared to ECG 03/12/2022 19:27:50 No significant changes Electronically Signed On 04-23-22 17:35:59 MANAGER CORPORATE COMMUNICATIONS by Red Valle
== END 2022-04-23 14:19 | disposition short-term general hospital (02) ==
LOC: ER 05:00
DX: S22.081A Stable burst fracture of T11-T12 vertebra, initial encounter for closed fracture (principal); N39.0 Urinary tract infection, site not specified; I48.20 Chronic atrial fibrillation, unspecified; Z79.01 Long term (current) use of anticoagulants; W18.30XA Fall on same level, unspecified, initial encounter; I10 Essential (primary) hypertension; Z91.040 Latex allergy status; Z91.048 Other nonmedicinal substance allergy status; Z20.822 Contact with and (suspected) exposure to COVID-19
CPT/HCPCS: 96365; 93005; 87088; 85025; 87086; 80048; 36415; 83735; 85610; 80076; 87077; 87186; 84484; 83690; 83880; 70450; 71250; 72125; 71045; 72170; 96375; 99285; 87811; J3010 ×2; J1100; J2405; 81003; 81015

== ENCOUNTER 2022-10-20 09:19 | Emergency (ER) | payer OTHER ==
--- OUTSIDE RECORDS SUMMARY | 2022-10-20 09:25 | XMS REPORT | Continuity of Care Document ---
:[address] [facility] t Address [address] [place] [address]. [address] [place] [address] Care Team Providers Name Role Phone Mauricio Roberta VALENTINE Primary Care Physician [phone] POLO SAMS NATASHA Attending Clinician Unavailable Amber Adorno Attending Clinician Unavailable Gina Coleman Anavella Attending Clinician Unava ilable [id number] Attending Clinician Unavailable Red Valle Attending Clinician Unavailable BENITO MOJICA Attending Clinician Unavailable Wesley Mensah MD Attending Clinician Milady Meier MD Attending Clinician [phone] Anette King MD Attending Clinician Benito Mojica MD Attending Clinician WESLEY MENSAH Attending Clinician Unavailable ZACARIAS YEUNG Attending Clinician Unavailable Jacinto Lee MD Attending Clinician JACINTO LEE Attending Clinician Unavailable Ever Begum MD Attending Clinician EEVR BEGUM Attending Clinician Unavailable Doctor Unassigned, [place] Attending Clinician Unavailable MITA GARCÍA Attending Clinician Unavailable POLO SAMS NATASHA Admitting Clinician Unavailable Carmen Coleman Anav Admitting Clinician Unavailable [id number] Admitting Clinician Unavailable MILADY MEIER Admitting Clinician Unavailable DAISY MALCOLM Admitting Clinician Unavailable Payers Payer Name Policy Type Policy Number Effective Date Expiration Date Ty walker [facility] [id number] [facility] [place] [id number] [facility] MED[facility] [id number] 2022 00:00:00 [employer] [place] [id number] 2019 PLUS CHOICE 00:00:00 Problems Condition Condition Condition Status Onset Resolution Last Treating Co mments Source Name Details Category Date Date Treatment Clinician Date Fracture, Fracture, Disease Recurre 2021-[address] thoracic thoracic nce 06-24 [facility] vertebra vertebra 00:00: [facility] Uterine Uterine Disease Active 2018-05 Univers polyp polyp 06-21 ity of 00:00: [place] [address] Medical Branch Colonic Colonic Problem Active Common polyp polyp [facility] Osteopenia Osteopenia Problem Active C ommon [facility] Low back Low back Problem Active Commo n pain pain [facility] 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 Sp jabari [facility] Prediabete Prediabete Problem Active C ommon s s [facility] [id number] Peripheral Problem Active Co mmon vascular [facility] disease [facility] Pain in Leg pain Problem Active Common limb [facility] [id number] Status Problem Active Common post fall [facility] Abnormalit Abnormal Problem Active Com mon y of red red cell [facility] blood [facility] cells [facility] [id number] Skin tear Problem Active Com mon of left [facility] upper [facility] extremity [facility] Current Current Problem Active Common every day every day Spir it smoker smoker [facility] Claudicati Claudicati Problem Active C ommon on on [facility] Right hip Pain in Problem Active Commo n pain right hip [facility] [id number] Weight Problem Active Common loss [facility] [id number] +5th digit Problem Active Co mmon eff [facility] 02/13/19*Ch [facility] ronic [facility] fibrillati Medica l on Center [id number] Left eye Problem Active Comm on complaint [facility] [id number] Elevated Problem Active Comm on BP without [facility] diagnosis - [facility] [id number] Routine Problem Active Commo n eye exam [facility] [id number] Hyperlipid Problem Active Com mon emia, [facility] unspecifie [facility] d hyperlipid [facility] emia [facility] [id number] Abnormal Problem Active Comm on CT scan, [facility] neck [facility] [id number] Injury of Problem Active Comm on head, [facility] initial [facility] encounter [facility] [id number] Other Problem Active Common chronic [facility] pain [facility] [id number] Bruising Problem Active Comm on [facility] [id number] Atrial Problem Active Common fibrillati [facility] on, [facility] unspecifie [facility] [id number] Loss of Problem Active Commo n consciousn [facility] ess [facility] [id number] Swelling Problem Active Commo n [facility] [id number] Neck pain Problem Active Comm on [facility] [id number] Closed Problem Active Common fracture [facility] of neck of [facility] left femur [facility] routine Medical healing, Center subsequent encounter [id number] Abnormal Problem Active Comm on CBC [facility] [id number] [place] [address] left hip [facility] joint [facility] [id number] Upper back Problem Active Co mmon pain [facility] [id number] Abnormal Problem Active Comm on x-ray of [facility] neck [facility] [id number] Onychomyco Problem Active Co mmon sis [facility] [id number] Skin Problem Active Common lesions [facility] Allergies, Adverse Reactions, Alerts Allergy Allergy Status Severity Reaction(s) Onset Inactive Treating Comm ents Source Name Type Date Date Clinician LATEX Allergy Active Itching 2021-[address] [facility] Center MORPHINE Allergy Active Itching 2021-05 [facility] St 06-24 [facility] 00:00: Medical 00 Center Latex Propensi Active Itching 2021-[address] ty to 06-24 [facility] adverse 00:00: Medical reaction 00 Center s Morphine Propensi Active Itching 2021-05 [facility] ty to 06-24 [facility] adverse 00:00: Medical reaction 00 Center s RUBBER Allergy Active 2020-05 [facility] 2 07:06: [...] Active 2020-05 [facility] 06-24 10:57: 24 LATEX DRUG Active High ITCHING 2020-0 Univers INGREDI 7-16 ity of 00:00: [place] 00 Medical Branch Latex Propensi Active Itching 2020-0 Univers ty to 7-16 ity of adverse 00:00: [place] reaction 00 Medical s to Branch drug Latex Propensi Active 2020-0 ty to 5-31 adverse 00:00: reaction 00 to drug morphine morphine Active Unknown Commo n [facility] NO KNOWN Drug Active Univers ALLERGIE Class ity of S [facility] Social History Social Habit Start Date Stop Date Quantity Comments Source History SDOH [facility] Alcohol Frequency Medical Center History SDOH [facility] Alcohol Std Drinks Medica Center History SDOH [facility] Alcohol Binge Medical Shun ter History of tobacco Current smoker [facility] use [facility] Exposure to 2022-04-13 2022-04-[address] [facility] SARS-CoV-2 (event) 00:00:00 17:07:00 [facility] Tobacco use and 2022-04-23 2022-04-[address] [facility] exposure 00:00:00 00:00:00 [facility] Alcohol intake 2022-04-23 2022-04-23 [facility]er [facility] 00:[facility] 00:00:00 of alcohol [facility] (finding) Tobacco Comment 2022-04-23 2022-04-23 a pack lasts two [facility] 00:00:00 00:00:00 weeks [facility] Alcohol Comment 2022-04-23 2022-04-23 a beer a day [facility] 00:00:00 00:00:00 [facility] Cigarettes smoked 2019-11-29 2019-11-29 [facility] ity of current (pack per 00:00:00 00:00:00 [facility]) - Reported Branch Cigarette 2019-11-29 2019-11-29 University of pack-years 00:00:00 00:00:00 [facility] Sex Assigned [birth year] [facility] ke 00:00:00 00:00:00 [facility] Smoking Status Start Date Stop Date Source Former smoker 2022-04-23 00:00:00 2022-04-23 00:00:00 [facility] Current Smoker 2021-05-28 00:00:00 Common [facility] Medications Ordered Filled Start Stop Current Ordering Indication Dosage Frequency Signature Comments Components Source Medication Medication Date Date Medication? Clinician (SIG) Name Name nitroglycer 2021-[address] in 2-18 mg under [facility] (NITROSTAT) 15:53: the tongue Medical 0.4 MG SL 15 every 5 Center tablet (five) minutes as needed for Chest pain Put 1 pill under tongue every 5min as needed for chest pain.No more than 3 doses in 15min.Call 911 if pain unrelieved 5min after 1st dose . omeprazole 2021-05 Yes 40mg QD Take [address] (PriLOSEC) 2-18 by mouth [facility] 40 MG 15:53: daily. Medical capsule 15 Center oxybutynin 2021-05 Yes 5mg Q.5D Take [address] (DITROPAN) 2-18 by mouth 2 Don es 5 MG tablet 15:53: (two) Medic al 15 times Center daily. rosuvastati 2021-05 Yes 10mg QD Take [address] n (CRESTOR) 2-18 by mouth Luke s 10 MG 15:53: daily. Medical tablet 15 Center rivaroxaban 2021-05 Yes Take by [facility] (XARELTO) 2-18 mouth [facility] 10 mg 15:53: daily with Medica l tablet 15 dinner. [place] gabapentin 2021-05 Yes 100mg Q.5D Take [address] (NEURONTIN) 2-18 mg by [facility] 100 MG 15:53: mouth 2 Medical capsule 15 (two) Center times daily. traZODone 2021-05 Yes 50mg QD Take [address] (DESYREL) 2-18 by mouth [facility] 50 MG 15:53: nightly. Medical tablet 15 Center calcium 2021-05- No 2{tbl} QD Take 2 [facility]I S t carbonate-v 2-18 12-18 tablets by Sinan rider itamin D3 00:00: 23:59 mouth Medica l (OSCAL-D) 00 :00 daily. [place] 500 mg(1,250mg) -200 unit per tablet senna 2021-05- No 17.2mg Take [address] (SENOKOT) 2-17 12-17 tablets [facility] 8.6 mg 00:00: 23:59 (17.2 mg Medica l tablet 00 :00 total) by Center mouth every night as needed for Constipati on. acetaminoph 2021-05- No 650mg Take [address] en 2-17 12-12 tablets [facility] (TYLENOL) 00:00: 23:59 (650 mg Medi ruby 325 MG 00 :00 total) by Center tablet mouth every 4 (four) hours as needed for up to 360 days. lidocaine 2021-05- No 2{patch Q24H Place [address] (LIDODERM) 2-17 05-31 } patches [facility] 5 % patch 00:00: 23:59 onto the Med ical 00 :00 skin daily Center for 30 days Remove & Discard patch within 12 hours or as directed by . dexamethaso 2021-05 No 2[drp] Q.5D Place [address] ne 07-02-27 drops into [facility]ukes (DECADRON) 00:00: 23:59 both eyes M edical 0.1 % 00 :00 2 (two) Center ophthalmic times solution daily for 10 days. docusate 2021-05 No 100mg Q.5D Take 1 [facility]I [facility] t sodium 07-02 capsule [facility]ukes (COLACE) 00:00: 23:59 (100 mg Medic al 100 MG 00 :00 total) by Center capsule mouth 2 (two) times daily for 10 days. tiZANidine 2021-05 No 2mg Take [address] (ZANAFLEX) 07-02 tablet (2 Don es 2 MG tablet 00:00: 23:59 mg total) Medical 00 :00 by mouth Center every 8 (eight) hours as needed for up to 10 days. traMADoL 2021-05 No 50mg Take [address] (ULTRAM) 50 07-02 tablet (50 L ukes mg tablet 00:00: 23:59 mg total) Me dical 00 :00 by mouth Center every 6 (six) hours as needed for up to 10 days. Max Daily Amount: 200 mg ciprofloxac 2021-05 No 2[drp] Q.5D Place [address] in HCl 07-02 12-24 drops in [facility] (CILOXAN) 00:00: 23:59 ear(s) 2 Med ical 0.3 % 00 :00 (two) Center ophthalmic times solution daily for 7 days Administer 1 drop, every 2 hours, while awake, for 2 days. Then 1 drop, every 4 hours, while awake, for the next 5 days.. nitroglycer 2021-[address] 0[address] in 2-10 mg under [facility]ukes (NITROSTAT) 17:07: the tongue Medical 0.4 MG SL 05 every 5 Center tablet (five) minutes as needed for Chest pain Put 1 pill under tongue every 5min as needed for chest pain.No more than 3 doses in 15min.Call 911 if pain unrelieved 5min after 1st dose . omeprazole 2021-05 Yes 40mg QD Take [address] (PriLOSEC) 2-10 by mouth [facility] 40 MG 17:07: daily. Medical capsule 05 [place] oxybutynin 2021-05 Yes 5mg Q.5D Take [address] (DITROPAN) 2-10 by mouth 2 Don es 5 MG tablet 17:07: (two) Medic al 05 times Center daily. rosuvastati 2021-05 Yes 10mg QD Take [address] n (CRESTOR) 2-10 by mouth Luke s 10 MG 17:07: daily. Medical tablet 05 [place] rivaroxaban 2021-05 Yes Take by [facility] (XARELTO) 2-10 mouth [facility] 10 mg 17:07: daily with Medica l tablet 05 dinner. [place] gabapentin 2021-05 Yes 100mg Q.5D Take [address] (NEURONTIN) 2-10 mg by [facility]ukes 100 MG 17:07: mouth 2 Medical capsule 05 (two) Center times daily. traZODone 2021-05 Yes 50mg QD Take [address] (DESYREL) 2-10 by mouth [facility] 50 MG 17:07: nightly. Medical tablet 05 [place] nitroglycer 2021-[address] 0[address] in 2-10 mg under [facility]ukes (NITROSTAT) 17:07: the tongue Medical 0.4 MG SL 05 every 5 Center tablet (five) minutes as needed for Chest pain Put 1 pill under tongue every 5min as needed for chest pain.No more than 3 doses in 15min.Call 911 if pain unrelieved 5min after 1st dose . omeprazole 2021-05 Yes 40mg QD Take [address] (PriLOSEC) 2-10 by mouth [facility] 40 MG 17:07: daily. Medical capsule 05 [place] oxybutynin 2021-05 Yes 5mg Q.5D Take [address] (DITROPAN) 2-10 by mouth 2 Don es 5 MG tablet 17:07: (two) Medic al 05 times Center daily. rosuvastati 2021-05 Yes 10mg QD Take [address] n (CRESTOR) 2-10 by mouth Luke s 10 MG 17:07: daily. Medical tablet 05 [place] rivaroxaban 2021-05 Yes Take by [facility] (XARELTO) 2-10 mouth [facility] 10 mg 17:07: daily with Medica l tablet 05 dinner. [place] gabapentin 2021-05 Yes 100mg Q.5D Take [address] (NEURONTIN) 2-10 mg by [facility]ukes 100 MG 17:07: mouth 2 Medical capsule 05 (two) Center times daily. traZODone 2021-05 Yes 50mg QD Take [address] (DESYREL) 2-10 by mouth [facility] 50 MG 17:07: nightly. Medical tablet 05 Center TAKE 1 2021-05 No TABLET BY 0-24 MOUTH EVERY 00:00: DAY 00 trazodone 2-0 No 1mg 50 mg 7-06 tablet 00:00: 00 rosuvastati 2-0 No 1mg n 10 mg 6-21 tablet 00:00: 00 Xarelto 20 2021-0 No 1mg mg tablet 6-21 00:00: 00 oxybutynin 2-0 No 1mg chloride 5 6-21 mg tablet 00:00: 00 nitroglycer 2-0 No 1mg in 0.4 mg 6-21 sublingual 00:00: tablet 00 Dose 2-0 No Unknown 6-21 00:00: 00 omeprazole 2-0 No 1mg 40 mg 6-21 capsule,del 00:00: ayed 00 release Dose 2-0 No Unknown 5-03 00:00: 00 gabapentin 2-0 No 1mg 100 mg 4-04 capsule 00:00: 00 trazodone 2-0 No 1mg 50 mg 3-03 tablet 00:00: 00 rosuvastati 2-0 No 1mg n 10 mg 3-03 tablet 00:00: 00 Xarelto 20 2-0 No 1mg mg tablet 3-03 00:00: 00 oxybutynin 2-0 No 1mg chloride 5 3-03 mg tablet 00:00: 00 Dose 2-0 No Unknown 3-03 00:00: 00 benzonatate 2-0 No 1mg 100 mg 3-03 capsule 00:00: 00 omeprazole 2022-0 No 1mg 40 mg 3-03 capsule,del 00:00: ayed 00 release Dose 2-0 No Unknown 3-03 00:00: 00 Dose 2022-0 [...] 2022-0 No Unknown 3-03 00:00: 00 Dose 2021-0 No Unknown 7-20 00:00: 00 rosuvastati 2021-0 No 1mg n 10 mg 7-13 tablet 00:00: 00 Dose 2021-0 No Unknown 7-13 00:00: 00 Dose 2021-0 No Unknown 7-13 00:00: 00 Myrbetriq 2021-0 No 1mg 25 mg 5-27 tablet,exte 00:00: nded 00 release oxybutynin 2021-0 No 1mg chloride 5 5-03 mg tablet 00:00: 00 Dose 2021-0 No Unknown 4-29 00:00: 00 Dose 2021-0 No Unknown 4-29 00:00: 00 oxybutynin 2021-0 No 1mg chloride ER 4-28 10 mg 00:00: tablet,exte 00 nded release 24 hr oxybutynin 2021-0 No 1mg chloride ER 4-13 10 mg 00:00: tablet,exte 00 nded release 24 hr rosuvastati 2021-0 No 1mg n 10 mg 4-05 tablet 00:00: 00 omeprazole 2021-0 No 1mg 40 mg 3-09 capsule,del 00:00: ayed 00 release Myrbetriq 2020-0 No 1mg 25 mg 2-26 tablet,exte 00:00: nded 00 release MYRBETRIQ 2020-0 Yes [id number] TAKE 1 Un juany 50 mg 1-14 TABLET BY ity of tablet 00:00: MOUTH [place] 00 DAILY Medical Branch rosuvastati 2020-1 No 1mg n 10 mg 0-06 tablet 00:00: 00 mirabegron 2020-0 Yes [id number] 50mg Take 1 U nivers 50 mg 9-29 tablet by ity of tablet 00:00: mouth [place] 00 daily. Medical Branch mirabegron 2020-0 2020- No [id number] 50mg Take 1 Univers 50 mg 9-29 01-14 tablet by ity of tablet 00:00: 00:00 mouth [place] 00 :00 daily. Medical Branch Myrbetriq 2020-0 No 1mg 25 mg 8-03 tablet,exte 00:00: nded 00 release rosuvastati 2020-0 No 1mg n 10 mg 8-03 tablet 00:00: 00 oxybutynin 2020-0 No 1mg chloride ER 8-03 10 mg 00:00: tablet,exte 00 nded release 24 hr omeprazole 2019-0 No 1mg 40 mg 8-03 capsule,del 00:00: ayed 00 release OXYBUTYNIN 2020-0 2020- No 10mg 10 mg Unive rs CHLORIDE, 11-28-16 daily. ity of BULK, MISC 20:27: 00:00 [place] 20 :00 Medical Branch OXYBUTYNIN 2020-0 2020- No 10mg 10 mg Unive rs CHLORIDE, 11-28-16 daily. ity of BULK, MISC 20:27: 00:00 [place] 20 :00 Medical Branch rivaroxaban 2020-0 Yes Take by Uni vers (XARELTO) 7-16 mouth ity of 20 mg 18:11: daily. [place] tablet 48 [facility] rosuvastati 2020-0 Yes Take by Uni vers n 10 mg 7-16 mouth ity of CpSP 18:11: daily. [place] 48 [facility] rivaroxaban 2020-0 Yes Take by Uni vers (XARELTO) 7-16 mouth ity of 20 mg 18:11: daily. [place] tablet 48 [facility] rosuvastati 2020-0 Yes Take by Uni vers n 10 mg 7-16 mouth ity of CpSP 18:11: daily. [place] [address] Medical Branch rivaroxaban 2020-0 Yes Take by Uni vers (XARELTO) 7-16 mouth ity of 20 mg 18:11: daily. [place] tablet 48 Medical Branch rosuvastati 2020-0 Yes Take by Uni vers n 10 mg 7-16 mouth ity of CpSP 18:11: daily. [place] [address] Medical Branch rivaroxaban 2020-0 Yes Take by Uni vers (XARELTO) 7-16 mouth ity of 20 mg 18:11: daily. [place] tablet 48 Medical Branch rosuvastati 2020-0 Yes Take by Uni vers n 10 mg 7-16 mouth ity of CpSP 18:11: daily. [address] Branch mirabegron 2020-0 Yes [id number] TK 1 T PO Univers (MYRBETRIQ) 7-16 D ity of 25 mg 00:00: [place] tablet 00 Medical Branch mirabegron 2020-0 Yes [id number] TK 1 T PO Univers (MYRBETRIQ) 7-16 D ity of 25 mg 00:00: [place] tablet 00 Medical Branch mirabegron 2020-0 2020- No [id number] TK 1 T PO Univers (MYRBETRIQ) 11-28 09-29 D ity of 25 mg 00:00: 00:00 [place] tablet 00 :00 Medical Branch MYRBETRIQ 2020-0 2020- No TK 1 T PO Un juany 25 mg 11-13 07-16 D ity of tablet 00:00: 00:00 [place] 00 :00 Medical Branch MYRBETRIQ 2020-0 2020- No TK 1 T PO Un juany 25 mg 11-13-16 D ity of tablet 00:00: 00:00 [place] 00 :00 Medical Branch Myrbetriq 2020-0 No [...] EC 5-11 D ity of tablet 00:00: [place] 00 [facility] pantoprazol 2020-0 Yes TK 1 T PO U nivers e 40 mg EC 5-11 D ity of tablet 00:00: [place] [facility] pantoprazol 2020-0 Yes TK 1 T PO U nivers e 40 mg EC 5-11 D ity of tablet 00:00: [place] [facility] pantoprazol 2020-0 Yes TK 1 T PO U nivers e 40 mg EC 5-11 D ity of tablet 00:00: [place] [facility] oxybutynin 2020-0 No 1mg chloride ER 4-14 10 mg 00:00: tablet,exte 00 nded release 24 hr sulfamethox 2018-05 Yes [id number] 1{tbl} Take 1 Univers azole-trime 2-11 tablet by ity of thoprim 00:00: mouth 2 [place] 800-160 mg 00 (two) Medical per tablet times Branch daily. sulfamethox 2018-05 Yes [id number] 1{tbl} Take 1 Univers azole-trime 2-11 tablet by ity of thoprim 00:00: mouth 2 [place] 800-160 mg 00 (two) Medical per tablet times Branch daily. sulfamethox 2018-05 Yes [id number] 1{tbl} Take 1 Univers azole-trime 2-11 tablet by ity of thoprim 00:00: mouth 2 [place] 800-160 mg 00 (two) Medical per tablet times Branch daily. sulfamethox 2018-05 Yes [id number] 1{tbl} Take 1 Univers azole-trime 2-11 tablet by ity of thoprim 00:00: mouth 2 [place] 800-160 mg 00 (two) Medical per tablet times Branch daily. sulfamethox 2018-05 Yes [id number] 1{tbl} Take 1 Univers azole-trime 2-11 tablet by ity of thoprim 00:00: mouth 2 [place] 800-160 mg 00 (two) Medical per tablet times Branch daily. sulfamethox 2018-05 Yes [id number] 1{tbl} Take 1 Univers azole-trime 2-11 tablet by ity of thoprim 00:00: mouth 2 [place] 800-160 mg 00 (two) Medical per tablet times Branch daily. sulfamethox 2018-05 Yes [id number] 1{tbl} Take 1 Univers azole-trime 2-11 tablet by ity of thoprim 00:00: mouth 2 [place] 800-160 mg 00 (two) Medical per tablet times Branch daily. Estradiol 2018-05 Yes [id number] 1 per Uni vers (VAGIFEM) 2-07 vagina ity of 10 mcg 00:00: every [place] tablet 00 night for Medical 2 weeks, Branch then every , , Tuesday pm. Estradiol 2018-05 Yes [id number] 1 per Uni vers (VAGIFEM) 2-07 vagina ity of 10 mcg 00:00: every [place] tablet 00 night for Medical 2 weeks, Branch then every , , Tuesday pm. Estradiol 2018-05 Yes [id number] 1 per Uni vers (VAGIFEM) 2-07 vagina ity of 10 mcg 00:00: every [place] tablet 00 night for Medical 2 weeks, Branch then every , , Tuesday pm. Estradiol 2018-05 Yes [id number] 1 per Uni vers (VAGIFEM) 2-07 vagina ity of 10 mcg 00:00: every [place] tablet 00 night for Medical 2 weeks, Branch then every , , Tuesday pm. Estradiol 2018-05 Yes [id number] 1 per Uni vers (VAGIFEM) 2-07 vagina ity of 10 mcg 00:00: every [place] tablet 00 night for Medical 2 weeks, Branch then every , , Tuesday pm. Estradiol 2018-05 Yes [id number] 1 per Uni vers (VAGIFEM) 2-07 vagina ity of 10 mcg 00:00: every [place] tablet 00 night for Medical 2 weeks, Branch then every , , Tuesday pm. Estradiol 2018-05 Yes [id number] 1 per Uni vers (VAGIFEM) 2-07 vagina ity of 10 mcg 00:00: every [place] tablet 00 night for Medical 2 weeks, Branch then every , , Tuesday pm. OXYBUTYNIN 2018-05 Yes 10mg 10 mg Univer s CHLORIDE, 2-06 daily. ity of BULK, MISC 14:47: [address] Branch rosuvastati 2018-05 Yes Take by Uni vers n 10 mg 2-06 mouth ity of CpSP 14:47: daily. [place] [address] Medical Branch rivaroxaban 2018-05 Yes Take by Uni vers (XARELTO) 2-06 mouth ity of 20 mg 14:47: daily. [place] tablet 56 Medical Branch OXYBUTYNIN 2018- Yes 10mg 10 mg Univer s CHLORIDE, 2-06 daily. ity of BULK, MISC 14:47: [place] [address] Medical Branch rosuvastati 2018- Yes Take by Uni vers n 10 mg 2-06 mouth ity of CpSP 14:47: daily. [place] [address] Medical Branch rivaroxaban 2018- Yes Take by Uni vers (XARELTO) 2-06 mouth ity of 20 mg 14:47: daily. [place] tablet 56 Medical Branch OXYBUTYNIN 2018- Yes 10mg 10 mg Univer s CHLORIDE, 2-06 daily. ity of BULK, MISC 14:47: [place] [address] Medical Branch rosuvastati 2018-05 Yes Take by Uni vers n 10 mg 2-06 mouth ity of CpSP 14:47: daily. [place] [address] Medical Branch rivaroxaban 2018- Yes Take by Uni vers (XARELTO) 2-06 mouth ity of 20 mg 14:47: daily. [place] tablet Medical Branch Nitroglycer Nitroglycer Yes Amber as Common in in 01-10 [place] directed [facility] 00:00: - [facility] 00 [facility] Nitroglycer Nitroglycer No Nitroglyce in 0.4 MG in 0.4 MG 01-10 rin 0.4 MG 00:00: 00 Nitroglycer Nitroglycer 0 No Nitroglyce in 0.4 MG in 0.4 MG 01-10 rin 0.4 MG 00:00: 00 [facility] 2019- No Amber 1 Common 01-10- [place] applicatio Spi rit 00:00: 00:00 n to - [facility] 00 [facility] [facility] Glucerna 2018- Yes Amber as Comm on 08-11 [place] directed [facility] 00:00: - [facility] 00 [facility] Glucerna - Glucerna - 0 No Glucerna - 08-11 00:00: 00 Glucerna - Glucerna - 2019-0 No Glucerna - 3-29 00:00: 00 Losartan Losartan 2018-1 Yes Amber 1/2 to 1 Common Potassium Potassium 2-12 [place] tablet Spirit 00:00: - [facility] 00 [facility] Yes Amber 1 Common ne ne 3-19 [place] applicatio Spir it Acetonide Acetonide 00:00: n to - C HI 00 affected [facility] No 1{appli BID Triamcinol ne ne 3-19 cation_ one Acetonide Acetonide 00:00: to_affe Acetonide 0.1 % 0.1 % 00 cted_ar 0.1 % ea} [facility] No 1{appli BID Triamcinol ne ne 3-19 cation_ one Acetonide Acetonide 00:00: to_affe Acetonide 0.1 % 0.1 % 00 cted_ar 0.1 % ea} VICOPROFEN Yes 1 tab Q4-6 U nivers 7.5-200 MG 8-11 hours PRN ity of ORAL TAB 00:00: pain [place] [facility] CEPHALEXIN Yes 1 tab PO Uni vers 500 MG ORAL 8-11 BID ity of CAP 00:00: [address] Branch VICOPROFEN Yes 1 tab Q4-6 U nivers 7.5-200 MG 8-11 hours PRN ity of ORAL TAB 00:00: pain Medical Branch CEPHALEXIN 2006- Yes 1 tab PO Uni vers 500 MG ORAL 8-11 BID ity of CAP 00:00: [place] [facility] VICOPROFEN Yes 1 tab Q4-6 U nivers 7.5-200 MG 8-11 hours PRN ity of ORAL TAB 00:00: pain Medical Branch CEPHALEXIN 2006- Yes 1 tab PO Uni vers 500 MG ORAL 8-11 BID ity of CAP 00:00: [address] Branch VICOPROFEN Yes 1 tab Q4-6 U nivers 7.5-200 MG 8-11 hours PRN ity of ORAL TAB 00:00: pain [facility] CEPHALEXIN Yes 1 tab PO Uni vers 500 MG ORAL 8-11 BID ity of CAP 00:00: [place] [facility] VICOPROFEN Yes 1 tab Q4-6 U nivers 7.5-200 MG 8-11 hours PRN ity of ORAL TAB 00:00: pain [facility] CEPHALEXIN Yes 1 tab PO Uni vers 500 MG ORAL 8-11 BID ity of CAP 00:00: [place] [facility] VICOPROFEN Yes 1 tab Q4-6 U nivers 7.5-200 MG 8-11 hours PRN ity of ORAL TAB 00:00: pain [facility] CEPHALEXIN Yes 1 tab PO Uni vers 500 MG ORAL 8-11 BID ity of CAP 00:00: [place] [facility] VICOPROFEN Yes 1 tab Q4-6 U nivers 7.5-200 MG 8-11 hours PRN ity of ORAL TAB 00:00: pain [place] [facility] CEPHALEXIN Yes 1 tab PO Uni vers 500 MG ORAL 8-11 BID ity of CAP 00:00: [facility] Xarelto Xarelto Yes Amber 1 tablet Comm on Millender in evening Spir it with food [facility] Calcium Calcium Yes Amber 600 mg>>>1 Co mmon Millender tablet [facility] Crestor Crestor Yes Amber 1 tablet Comm on Millender in evening [facility] it [facility] Folic Acid Folic Acid Yes Amber 1 tablet Common Millender [facility] Tylenol # 3 Tylenol # 3 Yes Amber 2 tablets Common Millender as needed [facility] Gabapentin Gabapentin Yes Amber 1 tablet Common Millender before Spirit bedtime [facility] Losartan Losartan Yes Amber TAKE 1/2 Co mmon Potassium Potassium Millender TO 1 Spirit TABLET BY - [facility]I [facility] EVERY DAY [facility] NEEDED Medical FOR BLOOD Center PRESSURE GREATER THAN OR EQUAL TO 150/90 Vitamin B12 Vitamin B12 Yes Amber 1 tablet Common Millender [facility] Vitamin D Vitamin D Yes Amber 1 tablet Common Millender [facility] Multivitami Multivitami Yes Amber 1 tablet Common n n Millender [facility] Tramadol Tramadol Yes Amber 1 tablet Co mmon HCl HCl Millender as needed Spiri t - [facility] Gabapentin Gabapentin No 1{table [...] 3 No 2{table QID Tylenol # 30-500-15 30-500-15 ts_as_n 3 MG MG eeded} 30-500-15 [...] 3 No 2{table QID Tylenol # 30-500-15 30-500-15 ts_as_n 3 MG MG eeded} 30-500-15 [...] 05-17 [facility] Spirit 00:00 - [facility]I :00 [facility] Immunizations Ordered Immunization Filled Immunization Date Status Commen ts Source Name Name Lenin Estrella 2022-03-10 Completed Vaccine (Aged 12 years 00:00:00 and older) (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) Lenin MANDUJANO-Brittany 2021-08-25 Completed Vaccine 00:00:00 Lenin ESTRELLA 2020-10-31 Completed Vaccine 00:00:00 Lenin ESTRELLA 2020-08-26 Completed Vaccine 00:00:00 Vital Signs Vital Name Observation Time Observation Value Comments Source HEIGHT 2022-04-23 18:00:00 154.9 cm WEIGHT 2022-04-23 18:00:00 45 kg HEIGHT 2022-04-23 18:00:00 154.9 cm WEIGHT 2022-04-23 18:00:00 45 kg HEIGHT 2022-04-23 18:00:00 154.9 cm WEIGHT 2022-04-23 18:00:00 45 kg height 2021-05-28 15:30:00 61.50 [in_i] [facility] weight 2021-05-28 15:30:00 98 [lb_av] [facility] bmi 2021-05-28 15:30:00 18.22 kg/m2 [facility] pirit [facility] blood pressure 2021-05-28 15:30:00 111 mm[Hg] [facility] - systolic [facility] blood pressure 2021-05-28 15:30:00 79 mm[Hg] [facility] - diastolic [facility] height 2021-04-29 10:40:00 61.50 [in_i] Common [facility] weight 2021-04-29 10:40:00 98 [lb_av] [facility] bmi 2021-04-29 10:40:00 18.22 kg/m2 [facility] blood pressure 2021-04-29 10:40:00 120 mm[Hg] [facility] - systolic [facility] blood pressure 2021-04-29 10:40:00 80 mm[Hg] [facility] - diastolic [facility] Systolic blood 2019-11-29 18:14:00 112 mm[Hg] Univer sity of pressure [facility] Diastolic blood 2019-11-29 18:14:00 70 mm[Hg] Unive rsity of pressure [facility] Heart rate 2019-11-29 18:14:00 73 /min Universi ty of [facility] Respiratory rate 2019-11-29 18:14:00 18 /min Univ ersity of [facility] Body height 2019-11-29 18:14:00 154.9 cm Universi ty of [facility] Body weight 2019-11-29 18:14:00 46.403 kg Universi ty of [facility] BMI 2019-11-29 18:14:00 19.33 kg/m2 Universi ty of [facility] Systolic blood 2019-11-01 20:21:00 123 mm[Hg] Univer sity of pressure [facility] Diastolic blood 2019-11-01 20:21:00 73 mm[Hg] Unive rsity of pressure [facility] Heart rate 2019-11-01 20:21:00 85 /min Universi ty of [facility] Body temperature 2019-11-01 20:21:00 36.83 Alondra Univ ersity of [facility] Respiratory rate 2019-11-01 20:21:00 20 /[facility] height 2019-11-01 20:21:00 152.4 cm Universi ty of [facility] Body weight 2019-11-01 20:21:00 44.815 kg Universi ty of [facility] BMI 2019-11-01 20:21:00 19.30 kg/m2 Universi ty [facility] Oxygen saturation in 2019-11-01 20:21:00 98 /min [facility] Arterial blood by [facility] Pulse oximetry Branch Systolic blood 2022-05-02 12:00:00 121 mm[Hg] [facility] Diastolic blood 2022-05-02 12:00:00 58 mm[Hg] [facility] S t [facility] Heart rate 2022-05-02 12:00:00 66 /min [facility] Body temperature 2022-05-02 12:00:00 36.28 Alondra [facility] Respiratory rate 2022-05-02 12:00:00 18 /min [facility] Oxygen saturation in 2022-05-02 12:00:00 95 /min [facility] Arterial blood by Medical Ce nter Pulse oximetry Systolic blood 2022-04-30 07:00:00 167 mm[Hg] [facility] Diastolic blood 2022-04-30 07:00:00 75 mm[Hg] [facility] Heart rate 2022-04-30 07:00:00 86 /min [facility] Body temperature 2022-04-30 07:00:00 36.22 Alondra [facility] Respiratory rate 2022-04-30 07:00:00 18 /min [facility] Oxygen saturation in 2022-04-30 07:00:00 96 /min [facility] Arterial blood by Medical Ce nter Pulse oximetry Systolic blood 2022-04-27 12:00:00 109 mm[Hg] [facility] Diastolic blood 2022-04-27 12:00:00 68 mm[Hg] [facility] Heart rate 2022-04-27 12:00:00 56 /min [facility] Body temperature 2022-04-27 12:00:00 36.17 Alondra [facility] Respiratory rate 2022-04-27 12:00:00 16 /min [facility] Oxygen saturation in 2022-04-27 12:00:00 95 /min [facility] Arterial blood by Medical Ce nter Pulse oximetry Body height 2022-04-23 18:00:00 154.9 cm [facility] Body weight 2022-04-23 18:00:00 45 kg [facility] BMI 2022-04-23 18:00:00 18.74 kg/m2 [facility] BP Systolic 2022-03-10 09:22:00 148 mm[Hg] BP [...] 2019-10-15 14:46:00 Procedures Procedure Date / Time Performing Clinician Source Performed CBC (HEMOGRAM ONLY) 2022-05-01 05:46:00 [facility] BASIC METABOLIC PANEL 2022-05-01 05:46:00 [facility] SARS-COV2/RT-PCR ([facility] 2022-04-30 11:24:00 Milady Meier [facility] Medical & REF LABS) [facility] CBC (HEMOGRAM ONLY) 2022-04-30 03:33:00 [facility] BASIC METABOLIC PANEL 2022-04-30 03:33:00 [facility] ECG 12-LEAD 2022-04-29 10:12:52 [facility] ECG 12-LEAD 2022-04-29 10:12:52 Unknown, Hl7 [facility] ECG 12-LEAD 2022-04-29 10:12:52 Unknown, Hl7 [facility] ECG 12-LEAD 2022-04-29 10:12:22 Unknown, Hl7 [facility] ECG 12-LEAD 2022-04-29 10:12:22 Unknown, Hl7 [facility] STRESS ECHO WITH 2022-04-28 11:21:27 Amelia Ya [facility] CONTRAST & TRACING [facility] STRESS ECHO WITH 2022-04-28 11:21:27 Amelia Ya [facility] CONTRAST & TRACING [facility] TSH/FREE T4 IF 2022-04-28 05:26:00 Amelia Ya [facility] INDICATED [facility] 2D ECHO W/ DOPPLER 2022-04-26 09:18:17 Milady Mieer [facility] (CW/PW/COLOR) [facility] 2D ECHO W/ DOPPLER 2022-04-26 09:18:17 Felipa Meierniki [facility] (CW/PW/COLOR) [facility] XR CHEST 1 VIEW 2022-04-24 06:53:00 [facility] PORTABLE / BEDSIDE [facility] BASIC METABOLIC PANEL 2022-04-24 03:48:00 Hardeep [facility] MAGNESIUM 2022-04-24 03:48:00 [facility] CBC W/PLT COUNT & AUTO 2022-04-24 03:48[facility] B-TYPE NATRIURETIC 2022-04-24 03:48:00 [facility] FACTOR (BNP) [facility] CBC W/PLT COUNT & AUTO 2022-04-24 03:48:00 [facility] DIFFERENTIAL [facility] CT THORACIC SPINE 2022-04-24 03:11:00 Jorden Solitario [facility] WITHOUT IV CONTRAST Center ECG 12-LEAD 2022-04-23 18:56:59 Hardeep Felipaniki [facility] ECG 12-LEAD 2022-04-23 18:56:59 Unknown, Hl7 [facility] ECG 12-LEAD 2022-04-23 18:56:59 Unknown, Hl7 [facility] ECG 12-LEAD 2022-04-23 18:56:35 Unknown, Hl7 [facility] ECG 12-LEAD 2022-04-23 18:56:35 Unknown, Hl7 [facility] EKG-SCANNED 2022-04-23 00:00:[address] [facility] POCT URINALYSIS AUTO 2019-11-01 20:27:[address] [facility] Medical [facility] REFERRAL- 2019-10-22 05:01:00 Doctor Unassigned, [employer] [facility] REQUEST/RESPONSE Name [facility] Plan of Care Planned Activity Planned Date Details Comments Source Future Scheduled 2023-04-[address] [facility] 00:00:00 Counseling [facility] Medical Cente r Screening (12+) [code = Tobacco Cessation Counseling and Screening (12+)] Future Scheduled 2023-04-[address] [facility] 00:00:00 Counseling and Medical Cente r Screening (12+) [code = Tobacco Cessation Counseling and Screening (12+)] Future Scheduled 2023-04-[address] [facility] 00:00:00 Counseling and Medical Cente r Screening (12+) [code = Tobacco Cessation Counseling and Screening (12+)] Future Scheduled 2023-01-[address] [facility] 00:00:00 (Season Ended) [code = Medic al Center INFLUENZA VACCINE (Season Ended)] Future Scheduled 2022-05-[address] [facility] 00:00:00 (12+) [code = Medical Center DEPRESSION SCREENING (12+)] Future Scheduled 2022-05-16 FALLS RISK SCREENING [facility] 00:00:00 [code = FALLS RISK Medical C enter SCREENING] Future Scheduled 2022-01-14 INFLUENZA VACCINE (#1) [facility]00 [code = INFLUENZA Medical Ce nter VACCINE (#1)] Future Scheduled 2022-01-14 Medicare IPPE (WELCOME [facility] 00:00:00 TO MEDICARE) [code = Medical Center Medicare IPPE (WELCOME TO MEDICARE)] Future Scheduled 2022-01-14 INFLUENZA VACCINE (#1) [facility] 00:00:00 [code = INFLUENZA Medical Ce nter VACCINE (#1)] Future Scheduled 2022-01-14 Medicare IPPE (WELCOME [facility] 00:00:00 TO MEDICARE) [code = Medical Center Medicare IPPE (WELCOME TO MEDICARE)] Future Scheduled 2022-01-14 Medicare IPPE (WELCOME [facility] 00:00:00 TO MEDICARE) [code = Medical Center Medicare IPPE (WELCOME TO MEDICARE)] Future Scheduled 2021-05-[address] [facility] 00:00:00 (12+) [code = Medical Center DEPRESSION SCREENING (12+)] Future Scheduled 2021-05-16 FALLS RISK SCREENING [facility] 00:00:00 [code = FALLS RISK Medical C enter SCREENING] Future Scheduled 2021-05-[address] [facility] 00:00:00 (12+) [code = Medical Center DEPRESSION SCREENING (12+)] Future Scheduled 2021-05-16 F[address]S RISK SCREENING [facility] 00:00:00 [code = FALLS RISK Medical C enter SCREENING] Future Scheduled 2000 PNEUMOCOCCAL 65+ YRS [facility] 00:00:00 (1 - PCV) [code = Medical Ce nter PNEUMOCOCCAL 65+ YRS (1 - PCV)] Future Scheduled 2000 PNEUMOCOCCAL 65+ YRS [facility] 00:00:00 (1 - PCV) [code = Medical Ce nter PNEUMOCOCCAL 65+ YRS (1 - PCV)] Future Scheduled 2000 PNEUMOCOCCAL 65+ YRS [facility] 00:00:00 (1 - PCV) [code = Medical Ce nter PNEUMOCOCCAL 65+ YRS (1 - PCV)] Future Scheduled 1985 SHINGLES VACCINES ([address] [facility] 00:00:00 of 2) [code = SHINGLES Medic al Center VACCINES (1 of 2)] Future Scheduled 1985 SHINGLES VACCINES ([address] [facility] 00:00:00 of 2) [code = SHINGLES Medic al Center VACCINES (1 of 2)] Future Scheduled 1985 SHINGLES VACCINES ([address] [facility] 00:00:00 of 2) [code = SHINGLES Medic al Center VACCINES (1 of 2)] Future Scheduled 1954 DTAP/TDAP/TD VACCINES [facility] 00:00:00 (1 - Tdap) [code = Medical C enter DTAP/TDAP/TD VACCINES (1 - Tdap)] Future Scheduled 1954 DTAP/TDAP/TD VACCINES [facility] 00:00:00 (1 - Tdap) [code = Medical C enter DTAP/TDAP/TD VACCINES (1 - Tdap)] Future Scheduled 1954 DTAP/TDAP/TD VACCINES [facility] 00:00:00 (1 - Tdap) [code = Medical C enter DTAP/TDAP/TD VACCINES (1 - Tdap)] Future Scheduled 1935 COVID-19 VACCINE (#1) [facility] 00:00:00 [code = COVID-[address] VACCINE (#1)] Future Scheduled 1935 COVID-19 VACCINE (#1) [facility] 00:00:00 [code = COVID-[address] VACCINE (#1)] Future Scheduled 1935 COVID-19 VACCINE (#1) [facility] 00:00:00 [code = COVID-[address] VACCINE (#1)] Goal Plan of Care Note [code = 14146-6] Goal Plan of Care Note [code = 64153-8] Goal Plan of Care Note [code = 19258-9] Goal Plan of Care Note [code = 11565-5] Goal Plan of Care Note [code = 02001-8] Goal Plan of Care Note [code = 00110-8] Goal Plan of Care Note [code = 10973-9] Goal Plan of Care Note [code = 44032-4] Goal Plan of Care Note [code = 54772-8] Goal Plan of Care Note [code = 69683-0] Goal Plan of Care Note [code = 62989-8] Goal Plan of Care Note [code = 25546-8] Encounters Start End Encounter Admission Attending Care Care Encounter Source Date/Time Date/Time Type Type Clinicians Facility Department ID 2022-05-01 Outpatient 3 RAAD SAMS BRIJESH [id number] [facility] 11:08:42 [facility] [place] 2022-04-29 Outpatient Seng [facility] [id number] 13:24:00 Amber lainez [address] [facility] 2022-04-28 Outpatient 3 GRACE SAMSPL BRIJESH [id number] [facility] 10:49:25 POLO [facility] [place] 2022-04-27 [facility] [id number] [facility] 03:33:29 hezach, 1213 [facility]ella [facility] [place] 2022-04-26 Outpatient 3 [id number] ENCPL REF [id number] [facility] 13:50:38 1212 [facility] [place] 2021-06-11 Outpatient 3 LATRELLGRACEPL [facility] [id number] [facility] 13:23:02 POLO 1127 [facility] [place] 2021-06-11 Outpatient 3 [id number] ENCPL REF [id number] [facility] 13:20:24 1119 [facility] [place] 2021-06-11 Outpatient 3 [id number] ENCPL REF [id number] [facility] 13:19:55 1118 [facility] [place] 2021-06-10 Outpatient Phill, [facility] Common 14:25:16 Amber [address] [facility] 2021-06-10 [facility] 14:24:25 Amber [address] [facility] 2021-06-10 Out[facility] Common 14:23:55 Amber [address] [facility] 2021-06-10 Out[facility] Phill[facility] Common 14:22:19 Amber [address] [facility] 2021-06-10 Out[facility] Phill, [facility] Common 11:05:08 Amber [address] [facility] 2021-04-20 Outpatient NEW ENCCLR ENCCLR [id number] EN CCLR 15:03:32 ADMISSION 2020-09-10 Inpatient Tori HITESH [facility] [id number] [facility] 16:16:13 Red 40 [facility] 2022-05-02 2022-05-08 Inpatient 3 LATRELL ENCPL BRIJESH [id number] [facility] 15:48:00 12:30:00 POLO 1218 [facility] [place] 2022-04-23 2022-05-02 Inpatient ER BEN MOJICA Neurology [id number] [facility] 15:26:00 15:53:00 [facility] 2022-04-23 2022-05-02 Hospital Wesley Mensah [facility] [id number] 15:26:00 15:53:00 Encounter Milady Meier [facility] 2022-04-23 2022-04-23 Outpatient [facility] [id number] [facility] 00:00:00 23:59:00 Anastacia 2022-04-23 2022-04-23 Orders [facility] [id number] 00:00[facility]00 00:00:00 Only [facility] 2022-04-23 2022-04-[address] [facility] [id number] [facility]00 00:00:00 [facility] 2022-04-23 2022-04-23 Orders [facility] [id number] 00:00:00 00:00:00 Only [facility] 2022-04-23 2022-04-[address] [facility] [id number] [facility] 00:[facility]00 00:00:00 [facility] 2022-03-10 2022-03-10 Outpatient OMAR NELSON [id number] [facility] 09:33:34 09:33:34 1026 F Isaias 2022-03-10 2022-03-10 Outpatient [id number] 00:00:00 00:00:00 Visit [id number] 2021-05-28 2021-05-28 [facility] [id number] Co mmon 00:00:00 00:00:00 visit [facility] 2021-04-23 2021-05-14 Outpatient JOSEPH GRESHAM ENCCLR [id number] ENCCLR 00:00:00 00:00:00 ADMISSION ZACARIAS 2021-04-29 2021-04-29 [facility] [id number] Co mmon 00:00:00 00:00:00 VISIT EST Spir it PT LEVEL 3 - [facility] 2020-05-28 2020-05-28 [facility] [id number] Univers 00:00:00 00:00:00 Bilal HEALTH [id number] it y of [place] [id number] [facility] ER [id number] [facility] 2020-02-12 2020-02-12 [facility] [id number] Univers 00:00:00 00:00:00 Bilal HEALTH [id number] it y of [place] [id number] [facility] ER [id number] [facility] 2019-11-29 2019-11-29 Office [facility] [id number] Univers 13:00:05 13:15:05 Visit Bilal HEALTH [id number] it y of [place] [id number] [facility] ER [id number] [facility] 2019-11-29 2019-11-29 [facility] [id number] Univers 13:15:00 13:15:00 BILAL ity [facility] 2019-11-20 2019-11-20 [facility] [id number] Univers 15:00:00 15:00:00 BILAL ity [facility] 2019-11-01 2019-11-01 Office [facility] [id number] Univers 15:03:30 15:35:53 Visit Ever Daily [id number] i ty of [place] [id number] [facility] [id number] Al dical [facility] [address] 2019-11-01 2019-11-01 [facility] [id number] Univers 15:00:00 15:00:00 EVER ity [facility] 2019-10-22 2019-10-22 Orders Doctor SHERLYN [id number] Univers 00:00:00 00:00:00 Only Unassigned, MOODY [id number] ity of [place] [facility] [id number] Jesse as [id number] [address] 2019-08-24 2019-08-24 Outpatient R RICKY, [facility] [id number] Univers 15:00:00 15:00:00 MITA ity [facility] 2019-08-24 2019-08-24 [facility] [id number] Univers 10:30:00 10:30:00 MITA itadriana [facility] 2019-07-20 2019-07-20 [facility] [id number] Univers 09:30:00 09:30:00 MITA ity [facility] 2019-04-20 2019-04-20 [facility] [id number] Univers 08:30:00 09:44:13 MITA ity [facility] 2019-01-09 2019-01-09 [facility] [id number] Common 14:21:00 14:21:00 t [facility] Linki Spir it Road [facility] 2019-01-03 2019-01-03 Out[facility] [id number] Common 16:00:00 16:00:[address] [facility] 2018-11-29 2018-11-29 Outpatient [facility] [id number] Common 10:44:00 10:44:[address] [facility] 2018-11-29 2018-11-29 Outpatient [facility] [id number] Common 10:05:00 10:05:[address] [facility] 2018-11-28 2018-11-28 Outpatient [facility] [id number] Common 14:40:00 14:40:[address] [facility] 2018-10-19 2018-10-19 Out[facility] [id number] Common 16:57:00 16:57:[address] [facility] 2018-08-16 2018-08-16 Out[facility] [id number] Common 14:42:00 14:42:[address] [facility] 2018-07-20 2018-07-20 Outpatient [facility] [id number] Common 01:51:00 01:51:[address] [facility] 2018-07-19 2018-07-19 Outpatient [facility] [id number] Common 16:00:00 16:00:[address] [facility] 2018-05-11 2018-05-11 Outpatient [facility] [id number] Common 00:09:00 00:09:[address] [facility] 2018-05-04 2018-05-04 Outpatient [facility] [id number] Common 08:24:00 08:24:[address] [facility] 2018-04-26 2018-04-26 Outpatient [facility] [id number] Common 13:45:00 13:45:[address] [facility] 2018-02-28 2018-02-28 Outpatient [facility] [id number] Common 11:00:00 11:00:[address] [facility] 2018-02-22 2018-02-22 Outpatient [facility] [id number] Common 20:22:00 20:22:[address] [facility] 2018-02-21 2018-02-21 Outpatient [facility] [id number] Common 13:00:00 13:00:[address] [facility] 2018-02-20 2018-02-20 Outpatient [facility]ca [facility] [id number] Common 15:43:00 15:43:[address] [facility] 2018-02-01 2018-02-01 Outpatient [facility] [id number] Common 16:00:00 16:00:[address] [facility] 2017-11-18 2017-11-18 Outpatient [facility] [id number] Common 11:53:00 11:53:[address] [facility] 2017-11-07 2017-11-07 Outpatient Bianca [facility] [id number] Common 22:32:00 22:32:[address] [facility] 2017-11-04 2017-11-04 Outpatient [facility] [id number] Common 15:45:00 15:45:[address] [facility] 2017-08-01 2017-08-01 Outpatient [facility] 13 [id number] [address] 11:45:00 11:45:[address] [facility] Results Test Description Test Time Test Comments Results Result Comments Source BASIC METABOLIC PANEL 2022-05-01 06:39:23 Test Item Value Reference Range Interpretation Comme nts SODIUM (BEAKER) (test 137 meq/L 136-145 code = 381) POTASSIUM (BEAKER) 4.3 meq/L 3.5-5.1 (test code = 379) CHLORIDE (BEAKER) (test 103 meq/L 98-107 code = 382) CO2 (BEAKER) (test code 24 meq/L 22-29 = 355) BLOOD UREA NITROGEN 19 mg/dL 7-21 (BEAKER) (test code = 354) CREATININE (BEAKER) 0.73 mg/dL 0.57-1.25 (test code = 358) GLUCOSE RANDOM (BEAKER) 97 mg/dL 70-105 (test code = 652) CALCIUM (BEAKER) (test 9.7 mg/dL 8.4-10.2 code = 697) EGFR (BEAKER) (test 80 mL/min/1.73 sq In terpretation of eGFR values code = 1092) m Stage Descripti on Result G1 Normal or high >=90 G2 Mildly decreased 60-89 G3a Mildly to moderately 45-5 9 G3b Moderately to severely 30- 44 G4 Severly decreased 15-29 G5 Kidney failure <15Repo rted eGFR is based on the CK D-EPI 2020 equation that d oes not use a race coefficien tEstimated GFR is not as accurate as Creatinine Clearance in pr edicting glomerular filt ration rate. Estimated GFR i s not applicable for dialysis mac montes Senior Market Intelligence Consultant ID - MARCOCBC (HEMOGRAM ONLY)2022-05-01 06:26:02 Test Item Value Reference Range Interpretation Comments WHITE BLOOD CELL COUNT (BEAKER) 9.4 K/ L 3.5-10.5 (test code = 775) RED BLOOD CELL COUNT (BEAKER) 4.66 M/ L 3.93-5.22 (test code = 761) HEMOGLOBIN (BEAKER) (test code = 14.6 GM/DL 11.2-15.7 410) HEMATOCRIT (BEAKER) (test code = 43.4 % 34.1-44.9 411) MEAN CORPUSCULAR VOLUME (BEAKER) 93 fL 79-95 (test code = 753) MEAN CORPUSCULAR HEMOGLOBIN 31.3 pg 25.6-32.2 (BEAKER) (test code = 751) MEAN CORPUSCULAR HEMOGLOBIN CONC 33.6 GM/DL 32.2-35.5 (BEAKER) (test code = 752) RED CELL DISTRIBUTION WIDTH 12.8 % 11.7-14.4 (BEAKER) (test code = 412) PLATELET COUNT (BEAKER) (test 242 K/CU MM 150-450 code = 756) MEAN PLATELET VOLUME (BEAKER) 10.0 fL 9.4-12.3 (test code = 754) NUCLEATED RED BLOOD CELLS 0 /100 WBC 0-0 (BEAKER) (test code = 413) SARS-CoV2/RT-PCR (Asymptomatic ONLY)2022-04-30 13:01:09 Test Item Value Reference Interpretation Comments Range SARS-COV2/RT-PCR Negative Negative The SARS-Co V-2 (test code = target nucleic 52679-2) acids are not detected in thi s specimen. Negat amanda results do not preclude SARS-C oV-2 infection and should not be u sed as the sole bas is for patient management decisions. Nega tive results must be combined with clinical observations, patient history , and epidemiolog ical information. A false negative result may occu r if a specimen is improperly collected, transported or handled. This S ARS CoV-2 test is a rapid, real-iqra e RT-PCR test intended for th e qualitative detection of nucleic acid fr om SARS-CoV-2 in a nasopharyngeal swab specimen collec jean pierre from individual s suspected of COVID-19 by the ir healthcare provider. SELENA (test code = This test has been SELENA) authorized by FDA under an EUA for use by authorized laboratories. This test is only authorized for the duration of the declaration that circumstances exist justifying the authorization of emergency use of in vitro diagnostic tests for detection and/or diagnosis of COVID-19 under Section 564(b)(1) of the Federal Food, Drug and Cosmetic Act, 21 U.S.C. 360bbb-3(b)(1), unless the authorization is terminated or revoked sooner. Fact Sheet for Healthcare Providers: https://www.[employer]Documents/Xp ert%20Xpress%20SAR S%20CoV-2/Fact%20S heets/302-3802%20S ARS-COV-2%20HEALTH CARE%20PROVIDERS%2 0FACT%20SHEET.pdf Fact Sheet for Healthcare Patients: https://www.[employer]Documents/Xp ert%20Xpress%20SAR S%20CoV-2/Fact%20S heets/302-3801%20S ARS-COV-2%20PATIEN T%20FACT%20SHEET.p df Lab Interpretation Normal (test code = 72220-2) [facility]2022-04-30 13:01:09 Test Item Value Reference Range Interpretation Comments SARS-COV2/RT-PCR Negative Negative The SARS-Co V-2 target (test code = nucleic acids a re not 3783648) detected in thi s specimen. Negative result s do not preclude SARS-C oV-2 infection and s hould not be used as the monik e basis for patient managem ent decisions. Nega tive results must be combine d with clinical observ ations, patient history , and epidemiological information. A false negativ e result may occur if a spec imen is improperly fanny ected, transported or handled. This SARS CoV-2 test is a rapid, real-time RT-PC R test intended for th e qualitative detection of nu cleic acid from SARS-CoV-2 in a nasopharyngeal swab specimen collected from individuals suspected of CO VID-19 by their healthcar e provider. This test has been authorized by FDA under an EUA for use by authorized laboratories. This test is only authorized for the duration of the declaration that circumstances exist justifying the authorization of emergency use of in vitro diagnostic tests for detection and/or diagnosis of COVID-19 under Section 564(b)(1) of the Federal Food, Drug and Cosmetic Act, 21 U.S.C. 360bbb-3(b)(1), unless the authorization is terminated or revoked sooner. Fact Sheet for Healthcare Providers: https://www.[employer] m/Documents/Xpert%20Xpress%20SARS%20CoV-2/Fact%20Sheets/3023802%95WKIZ-LUN-7%20 HEALTHCARE%20PROVIDERS%20FACT%20SHEET.pdf Fact Sheet for Healthcare Patients: https://www.[employer]/Documents/Xpert%20Xp ress%20SARS%20CoV-2/Fact%20Sheets/3023801%52DKRV-ZVI-3%20PATIENT%20FACT%20SHEET .pdfBASIC METABOLIC [id number] 04:49:16 Test Item Value Reference Range Interpretation Comments SODIUM (BEAKER) 135 meq/L 136-145 L (test code = 381) POTASSIUM 4.6 meq/L 3.5-5.1 (BEAKER) (test code = 379) CHLORIDE (BEAKER) 100 meq/L 98-107 (test code = 382) CO2 (BEAKER) 25 meq/L 22-29 (test code = 355) BLOOD UREA 23 mg/dL 7-21 H NITROGEN (BEAKER) (test code = 354) CREATININE 0.86 mg/dL 0.57-1.25 (BEAKER) (test code = 358) GLUCOSE RANDOM 98 mg/dL 70-105 (BEAKER) (test code = 652) CALCIUM (BEAKER) 10.1 mg/dL 8.4-10.2 (test code = 697) EGFR (BEAKER) 66 Interpretatio n of eGFR (test code = mL/min/1.73 values Stage De scription 1092) sq m Result G1 Kassidy l or high >=90 G2 Mildly decreased 60-89 G3a Mildl y to moderately 45-5 9 G3b Moderately to s everely 30-44 G4 Severl y decreased 15-29 G5 Kidney failure <15Reported eGF R is based on the CKD-EPI 2020 equation that d oes not use a race coefficientEsti mated GFR is not as accur ate as Creatinine Melissa kimberley in predicting glom erular filtration rate . Estimated GFR is not appl icable for dialysis patien ts Senior Market Intelligence Consultant ID - MARCOCBC (HEMOGRAM ONLY)2022-04-30 04:29:53 Test Item Value Reference Range Interpretation Comments WHITE BLOOD CELL COUNT (BEAKER) 11.2 K/ L 3.5-10.5 H (test code = 775) RED BLOOD CELL COUNT (BEAKER) 4.92 M/ L 3.93-5.22 (test code = 761) HEMOGLOBIN (BEAKER) (test code = 15.3 GM/DL 11.2-15.7 410) HEMATOCRIT (BEAKER) (test code = 45.9 % 34.1-44.9 H 411) MEAN CORPUSCULAR VOLUME (BEAKER) 93 fL 79-95 (test code = 753) MEAN CORPUSCULAR HEMOGLOBIN 31.1 pg 25.6-32.2 (BEAKER) (test code = 751) MEAN CORPUSCULAR HEMOGLOBIN CONC 33.3 GM/DL 32.2-35.5 (BEAKER) (test code = 752) RED CELL DISTRIBUTION WIDTH 12.8 % 11.7-14.4 (BEAKER) (test code = 412) PLATELET COUNT (BEAKER) (test 245 K/CU MM 150-450 code = 756) MEAN PLATELET VOLUME (BEAKER) 9.7 fL 9.4-12.3 (test code = 754) NUCLEATED RED BLOOD CELLS 0 /100 WBC 0-0 (BEAKER) (test code = 413) STRESS ECHO With Contrast & [id number] 19:14:00Ejection FractionSLEH ECHO [facility] Contrast & [id number] 19:14:00[facility]jection [facility]SLEH [facility] [id number] 06:30:31 Test Item Value Reference Range Interpretation Comments THYROID STIMULATING HORMONE 3.277 uIU/mL 0.350-4.940 (BEAKER) (test code = 772) Senior Market Intelligence Consultant ID - [id number] Echo W/Doppler(CW/PW/Color)2022-04-26 13:19:54Ejection FractionSLEH ECHO [facility]ARTLAB [facility] Echo W/Doppler(CW/PW/Color)2022-04-26 13:19:54Ejection FractionSLEH ECHO [facility] Echo W/Doppler(CW/PW/Color) 2022-04-26 13:19:54Ejection FractionSLEH ECHO [facility], 1 VIEW, NON [id number] 08:12:00Reason for exam:->CHFShould this be performed at the bedside?->Yes [facility] 1935 Sex: FFINAL REPORT INDICATION: CHF COMPARISON: None TECHNIQUE: Single frontal view of the chest. FINDINGS: Lungs and pleura: Clear lungs. No effusion.Heart and mediastinum: Normal heart size. Unremarkable mediastinal contours.Osseous structures: No acute abnormality.Other: None. IMPRESSION: No acute intrathoracic abnormality. Signed: Alba Rodas MDReport Verified Date/Time: 04/24/2022 08:12:36 B-TYPE NATRIURETIC FACTOR (BNP)2022-04-24 04:46:48 Test Item Value Reference Range Interpretation Comments B-TYPE NATRIURETIC PEPTIDE (BEAKER) 301 pg/mL 0-100 H (test code = 700) Senior Market Intelligence Consultant ID - CALI [id number] 04:39:43 Test Item Value Reference Range Interpretation Comments MAGNESIUM (BEAKER) (test code = 1.9 mg/dL 1.6-2.6 627) Senior Market Intelligence Consultant ID - MARCOBASIC METABOLIC [id number] 04:39:42 Test Item Value Reference Range Interpretation Comments SODIUM (BEAKER) 135 meq/L 136-145 L (test code = 381) POTASSIUM 4.0 meq/L 3.5-5.1 (BEAKER) (test code = 379) CHLORIDE (BEAKER) 104 meq/L 98-107 (test code = 382) CO2 (BEAKER) 22 meq/L 22-29 (test code = 355) BLOOD UREA 32 mg/dL 7-21 H NITROGEN (BEAKER) (test code = 354) CREATININE 0.84 mg/dL 0.57-1.25 (BEAKER) (test code = 358) GLUCOSE RANDOM 139 mg/dL 70-105 H (BEAKER) (test code = 652) CALCIUM (BEAKER) 9.7 mg/dL 8.4-10.2 (test code = 697) EGFR (BEAKER) 68 Interpretatio n of eGFR (test code = mL/min/1.73 values Stage De scription 1092) sq m Result G1 Kassidy l or high >=90 G2 Mildly decreased 60-89 G3a Mildl y to moderately 45-5 9 G3b Moderately to s everely 30-44 G4 Severl y decreased 15-29 G5 Kidney failure <15Reported eGF R is based on the CKD-EPI 2020 equation that d oes not use a race coefficientEsti mated GFR is not as accur ate as Creatinine Melissa kimberley in predicting glom erular filtration rate . Estimated GFR is not appl icable for dialysis patien ts Senior Market Intelligence Consultant ID - MARCOCBC W/PLT COUNT & AUTO [id number] 04:10:05 Test Item Value Reference Range Interpretation Comments WHITE BLOOD CELL COUNT (BEAKER) 9.8 K/ L 3.5-10.5 (test code = 775) RED BLOOD CELL COUNT (BEAKER) 4.76 M/ L 3.93-5.22 (test code = 761) HEMOGLOBIN (BEAKER) (test code = 14.9 GM/DL 11.2-15.7 410) HEMATOCRIT (BEAKER) (test code = 43.3 % 34.1-44.9 411) MEAN CORPUSCULAR VOLUME (BEAKER) 91 fL 79-95 (test code = 753) MEAN CORPUSCULAR HEMOGLOBIN 31.3 pg 25.6-32.2 (BEAKER) (test code = 751) MEAN CORPUSCULAR HEMOGLOBIN CONC 34.4 GM/DL 32.2-35.5 (BEAKER) (test code = 752) RED CELL DISTRIBUTION WIDTH 12.8 % 11.7-14.4 (BEAKER) (test code = 412) PLATELET COUNT (BEAKER) (test 231 K/CU MM 150-450 code = 756) MEAN PLATELET VOLUME (BEAKER) 9.4 fL 9.4-12.3 (test code = 754) NUCLEATED RED BLOOD CELLS 0 /100 WBC 0-0 (BEAKER) (test code = 413) NEUTROPHILS RELATIVE PERCENT 81 % (BEAKER) (test code = 429) LYMPHOCYTES RELATIVE PERCENT 10 % (BEAKER) (test code = 430) MONOCYTES RELATIVE PERCENT 9 % (BEAKER) (test code = 431) EOSINOPHILS RELATIVE PERCENT 0 % (BEAKER) (test code = 432) BASOPHILS RELATIVE PERCENT 0 % (BEAKER) (test code = 437) NEUTROPHILS ABSOLUTE COUNT 7.98 K/ L 1.56-6.13 H (BEAKER) (test code = 670) LYMPHOCYTES ABSOLUTE COUNT 0.96 K/ L 1.18-3.74 L (BEAKER) (test code = 414) MONOCYTES ABSOLUTE COUNT (BEAKER) 0.83 K/ L 0.24-0.36 H (test code = 415) EOSINOPHILS ABSOLUTE COUNT 0.00 K/ L 0.04-0.36 L (BEAKER) (test code = 416) BASOPHILS ABSOLUTE COUNT (BEAKER) 0.01 K/ L 0.01-0.08 (test code = 417) IMMATURE GRANULOCYTES-RELATIVE 0.30 % 0.00-1.00 PERCENT (BEAKER) (test code = 2801) CT, SPINE, THORACIC, WO [id number] 03:52:00Unlisted Reason for Exam - Click Yes and Enter Reason Below->No [facility] : 1935 Sex: FFINAL REPORT EXAMINATIONS: CT, CT, spine, thoracic, without contrast CLINICAL DATA: Thisstudy was ordered to evaluate the lower thoracic spine fracture in an 86-year-old female. No other history was provided. PROCEDURE NOTE: Spiral images were done through the thoracic spine and lumbar spine without intrathecal or intravenous contrast. Axial and sagittal and coronal images were reviewed.The estimated radiation dose was equal to a total DLP of 403 mGy*cm. Individualized radiation dose reduction techniques were employed. COMPARISON: None. CT THORACIC SPINE FINDINGS: On coronal images, there is curvature convex to the left measuring just under 20 degrees. This is a patient that has 12 thoracic type segments. This patient shows an acute fracture or sharp fracture margins in the T11 vertebral body. That vertebral body is compressed by 30%. The fracture shows a little bit of posterior displacement of the posterior vertebral body on sagittal image 28 but does not cause a severe block at the thoracolumbar junction. No callus termination is seen. The fracture looks acute. There is some mild associated paraspinal hematoma. No other fractured thoracic vertebral bodies are seen. There is spurring about the fracture at the T9-10 level. There is spurring below the fracture at the L1-2 level.There is no evidence for any spondylolisthesis. Mild arthritis is seen at the other thoracic levels.I do not see lytic or blastic bone destruction in the pedicles. Cause for the fractures uncertain. The spinous processes look intact. No postsurgical changes are seen. IMPRESSION:1. There is a [id number] that looks acute measuring about 30% of anterior vertebral height with acute fracture line seen all throughout the vertebral body with a small posterior displacement of the vertebral body seen not causing spinal stenosis.2. No other thoracic fracture is seen and the L1 vertebral body looks intact.3. This patient has DJD.4. I am not suspicious of any thoracic spinal stenosis and no spondylolisthesis is seen. 5. There is scoliosis to the left measuring just under 20 degrees in the thoracic spine. Signed: Kapil Allen Verified Date/Time: 04/24/2022 03:52:53 COMPREHENSIVE METABOLIC [id number] 03:47:06 Test Item Value Reference Range Interpretation Comments GLUCOSE (test code = 98 MG/DL 70-99 2216) BUN (test code = 22 MG/DL 8-23 2207) CREATININE (test 0.81 MG/DL 0.60-1.30 code = 2214) eGFR (2020 CKD-EPI) 71 ML/MIN/1.73 >60 (test code = 26143) CALC BUN/CREAT (test 27 RATIO 6-28 code = 2235) SODIUM (test code = 141 MEQ/L 099-800 0907) POTASSIUM (test code 4.8 MEQ/L 3.5-5.4 = 2227) CHLORIDE (test code 104 MEQ/L 95-107 = 2215) CARBON DIOXIDE (test 23 MEQ/L 19-31 code = 2206) CALCIUM (test code = 9.9 MG/DL 8.5-10.5 2208) PROTEIN, TOTAL (test 7.6 G/DL 6.1-8.3 code = 2229) ALBUMIN (test code = 4.5 G/DL 3.5-5.2 2200) CALC GLOBULIN (test 3.1 G/DL 1.9-3.7 code = 2240) CALC A/G RATIO (test 1.5 RATIO 1.0-2.6 code = 2234) BILIRUBIN, TOTAL 0.6 MG/DL See_Comment [Automated message] (test code = 2207) The syste m which generated this result transmit jean pierre reference range : <=1.2. The refe rence range was not u sed to interpret th is result as normal/abnormal . ALKALINE PHOSPHATASE 87 U/L 40-142 (test code = 2204) AST (test code = 26 U/L 9-40 2217) ALT (test code = 13 U/L 5-40 2218) LIPID [id number] 03:47:06 Test Item Value Reference Range Interpretation [...] MOREINFORMATION , SEE CLIENT ANNOUNCE MENT AT [email or web address] LDL/HDL 1.44 RATIO <3.22 UNLESS O THERWISE (test code = 223) INDICATED , ALL TESTING PERFORMED [facility], [facility]. [address] [place] [id number] LABOR ATORY DIRECTOR: KAPIL CHAUHAN M.D. [facility] NUMBER [id number] CAP ACCREDITATION N O. [id number] COMPREHENSIVE METABOLIC PANEL [ADDED]2021-08-26 00:00:00 Test Item Value Reference Range Interpretation Comments GLUCOSE (test code = 7) 98 MG/DL BUN (test code = 2207) 22 MG/DL CREATININE (test code = 2214) 0.81 MG/DL eGFR (2020 CKD-EPI) (test code 71 ML/MIN/1.73 = 37549) CALC BUN/CREAT (test code = 27 RATIO 2235) SODIUM (test code = 223) 141 MEQ/L POTASSIUM (test code = 2228) 4.8 MEQ/L CHLORIDE (test code = 2215) 104 MEQ/L CARBON DIOXIDE (test code = 23 MEQ/L 2205) CALCIUM (test code = 2209) 9.9 MG/DL [...] (2020 CKD-EPI) (test code 71 ML/MIN/1.73 = 81895) CALC BUN/CREAT (test code = 27 RATIO 2235) SODIUM (test code = 2231) 141 MEQ/L POTASSIUM (test code = 2228) 4.8 MEQ/L CHLORIDE (test code = 2215) 104 MEQ/L CARBON DIOXIDE (test code = 23 MEQ/L 2205) CALCIUM (test code = 2209) 9.9 MG/DL [...] code = 1.44 RATIO 2238) CBC W/AUTO [id number] 00:00:00 Test Item Value Reference Range Interpretation [...] code = 1015) 196 K/UL CBC W/AUTO [id number] 00:00:00 Test Item Value Reference Range Interpretation [...] code = 1015) 196 K/UL CBC W/AUTO [id number] 00:00:00 Test Item Value Reference Range Interpretation [...] (test code = 1015) 196 K/UL LIPID [id number] 00:00:00 Test Item Value Reference Range Interpretation Comments CHOLESTEROL (test code = 2210) 125 MG/DL TRIGLYCERIDES (test code = 2232) 67 MG/DL HDL CHOLESTEROL (test code = 2220) 50 MG/DL CALC LDL CHOL (test code = 2237) 61 MG/DL RISK RATIO LDL/HDL (test code = 1.22 RATIO 2238) LIPID [id number] 00:00:00 Test Item Value Reference Range Interpretation Comments CHOLESTEROL (test code = 2210) 125 MG/DL TRIGLYCERIDES (test code = 2232) 67 MG/DL HDL CHOLESTEROL (test code = 2220) 50 MG/DL CALC LDL CHOL (test code = 2237) 61 MG/DL RISK RATIO LDL/HDL (test code = 1.22 RATIO 2238) COMPREHENSIVE METABOLIC [id number] 00:00:00 Test Item Value Reference Range Interpretation Comments GLUCOSE (test code = 2217) 95 MG/DL BUN (test code = 2208) 12 MG/DL CREATININE (test code = 2214) 0.76 MG/DL eGFR AMER. (test code 83 ML/MIN/1.73 = 69674) eGFR NON- AMER. (test 72 ML/MIN/1.73 code = 85307) CALC BUN/CREAT (test code = 16 RATIO 2235) SODIUM (test code = 2231) 138 MEQ/L POTASSIUM (test code = 2228) 4.4 MEQ/L CHLORIDE (test code = 2215) 104 MEQ/L CARBON DIOXIDE (test code = 24 MEQ/L 220) CALCIUM (test code = 2209) 9.8 MG/DL PROTEIN, TOTAL (test code = 7.1 G/DL 2228) ALBUMIN (test code = 2201) 4.3 G/DL CALC GLOBULIN (test code = 2.8 G/DL 2240) CALC A/G RATIO (test code = 1.5 RATIO 2234) BILIRUBIN, TOTAL (test code = 0.7 MG/DL 2206) ALKALINE PHOSPHATASE (test 73 U/L code = 2204) AST (test code = 2218) 24 U/L ALT (test code = 2219) 15 U/L COMPREHENSIVE METABOLIC [id number] 00:00:00 Test Item Value Reference Range Interpretation Comments GLUCOSE (test code = 2217) 95 MG/DL BUN (test code = 2208) 12 MG/DL CREATININE (test code = 2214) 0.76 MG/DL eGFR AMER. (test code 83 ML/MIN/1.73 = 90710) eGFR NON- AMER. (test 72 ML/MIN/1.73 code = 00895) CALC BUN/CREAT (test code = 16 RATIO [...] CALC GLOBULIN (test code = 2.8 G/DL 2240) CALC A/G RATIO (test code = 1.5 RATIO 2234) BILIRUBIN, TOTAL (test code = 0.7 MG/DL 2206) ALKALINE PHOSPHATASE (test 73 U/L code = 2204) AST (test code = 2218) 24 U/L ALT (test code = 2219) 15 U/L POCT URINALYSIS, [id number] 20:28:00 Test Item Value Reference Range Interpretation [...] 3267) Lab Interpretation (test code Abnormal = 88353-2) [facility] [id number] 20:28:00 Test Item Value Reference Range Interpretation [...] 3267) Lab Interpretation (test code Abnormal = 66939-4) [facility]2019-10-16 00:00:00 Test Item [...] BAND NEUTROPHILS DNR cells/uL (test code = 94106-0) ABSOLUTE METAMYELOCYTES (test DNR cells/uL code = 76544-6) ABSOLUTE MYELOCYTES (test DNR cells/uL code = 16474-7) ABSOLUTE PROMYELOCYTES (test DNR cells/uL code = 02996-7) ABSOLUTE LYMPHOCYTES (test 1771 cells/uL code = 731-0) ABSOLUTE MONOCYTES (test code 626 cells/uL = 742-7) ABSOLUTE EOSINOPHILS (test 130 cells/uL code = 711-2) ABSOLUTE BASOPHILS (test code 29 cells/uL = 704-7) ABSOLUTE BLASTS (test code = DNR cells/uL 98287-7) ABSOLUTE NUCLEATED RBC (test DNR cells/uL code = 79194-0) NEUTROPHILS (test code = 64.5 % 770-8) BAND NEUTROPHILS (test code = DNR % 764-1) METAMYELOCYTES (test code = DNR % 740-1) MYELOCYTES (test code = DNR % 749-2) PROMYELOCYTES (test code = DNR % 783-1) LYMPHOCYTES (test code = 24.6 % 736-9) REACTIVE LYMPHOCYTES (test DNR % code = 60211-5) MONOCYTES (test code = 8.7 % 5905-5) EOSINOPHILS (test code = 1.8 % 713-8) BASOPHILS (test code = 706-2) 0.4 % BLASTS (test code = 709-6) DNR % NUCLEATED RBC (test code = DNR /100WBC 53949-0) COMMENT(S) (test code = DNR 8251-1) COMPREHENSIVE METABOLIC [id number] 00:00:00 Test Item Value Reference Range Interpretation Comments GLUCOSE (test code = 84 mg/dL 2345-7) UREA NITROGEN (BUN) 14 mg/dL (test code = 3094-0) CREATININE (test code = 0.68 mg/dL 2160-0) eGFR NON-AFR. ALBANIAN 80 mL/min/1.73m2 (test code = 21197-7) eGFR 93 mL/min/1.73m2 (test code = 44235-5) BUN/CREATININE RATIO NOT APPLICABLE (calc) (test code = 3097-3) SODIUM (test code = 138 mmol/L 2951-2) POTASSIUM (test code = 4.1 mmol/L 2823-3) CHLORIDE (test code = 103 mmol/L 5-0) CARBON DIOXIDE (test 29 mmol/L code = 2027-9) CALCIUM (test code = 10.1 mg/dL 98768-8) PROTEIN, TOTAL (test 7.5 g/dL code = 2885-2) ALBUMIN (test code = 4.6 g/dL 1751-7) GLOBULIN (test code = 2.9 g/dL(calc) 02625-4) ALBUMIN/GLOBULIN RATIO 1.6 (calc) (test code = 1759-0) BILIRUBIN, TOTAL (test 1.0 mg/dL code = 1974-2) ALKALINE PHOSPHATASE 75 U/L (test code = 6768-6) AST (test code = 23 U/L 1920-8) ALT (test code = 16 U/L 1742-6) LIPID PANEL (REFL)2019-10-16 00:00:00 Test Item Value Reference Range Interpretation Comments CHOLESTEROL, TOTAL (test code 132 mg/dL = 2093-3) HDL CHOLESTEROL (test code = 50 mg/dL 5-9) TRIGLYCERIDES (test code = 69 mg/dL 2571-8) LDL-CHOLESTEROL (test code = 67 mg/dL(calc) 78520-3) CHOL/HDLC RATIO (test code = 2.6 (calc) 9830-1) NON HDL CHOLESTEROL (test code 82 mg/dL(calc) = 19793-9)
[2022-10-20 09:42] LABS: Absolute Lymphocytes (CBC) 1.7 K/uL (0.7-4.9); MPV 7.6 fL (7.6-11.3)
[2022-10-20 09:51] LABS: Protime INR 1.53
--- NOTE | 2022-10-20 10:35 | RAD REPORT ---
EXAM DESCRIPTION: CT - Head C Spine Cap Wo Con - 10/20/2022 10:04 am CLINICAL HISTORY: Trauma, head and neck injury. Chest, abdomen and pelvis pain. fall, head injury, left rib, left flank COMPARISON: Head C Spine Cap Wo Con dated 04/23/2022 TECHNIQUE: CT head without contrast. CT cervical spine without contrast with coronal and sagittal reformatted images. CT chest, abdomen and pelvis without contrast with coronal and sagittal reformatted images of the spi ne. All CT scans are performed using dose optimization technique as appropriate and may include automated exposure control or mA/KV adjustment according to patient size. FINDINGS: CT HEAD WITHOUT CONTRAST: No intracranial hemorrhage, hydrocephalus or extra-axial fluid collection. Advanced generalized brain atrophy is present with advanced periventricular and deep white matter chronic microvascular ischemi c changes. No areas of brain edema or midline shift. The paranasal sinuses and mastoids are clear. The calvarium is intact. CT CERVICAL SPINE WITHOUT CONTRAST: No fracture or subluxation. Moderate multilevel degenerative change mid cervical spine. The preverteb ral soft tissues are normal in thickness.Levoscoliosis of the cervical spine is present. CT CHEST, ABDOMEN, PELVIS WITHOUT CONTRAST: NOTE: Lack of contrast is a significant limitation in the assessment of trauma related findings. Spec ifically, solid organ, vascular and bowel evaluation is significantly limited. Mild diffuse COPD is present.No pneumothorax or pericardial/pleural fluid. No evidence of intra-abdominal visceral injury, free fluid or free air is seen within the above detai led limitations. Mildly angulated fractures left posterior eleventh and twelfth rib noted. High-grade chronic appearing compression deformity both T12, which has progressed since 2021 comparat amanda study. IMPRESSION: Mildly angulated posterior left eleventh and twelfth rib fractures without pneumothorax or underlying splenic injury suspected. T12 compression fracture which appears chronic but has progressed since 2021 and currently results 90 % vertebral body height loss. No significant canal compromise.
--- NOTE | 2022-10-20 11:02 | EDPHYS ---
Physician Documentation [facility] Name: Maureen Martin Age: 87 yrs Sex: Female : 1935 Arrival Date: 10/20/2022 Time: 09:19 Bed 6 Private MD: ED Physician Morales Cadena HPI: 10/20 09:30 This 87 yrs old Female presents to ER via EMS with complaints of Fall Injury. rn 09:30 Details of fall: The patient fell from an upright position, while walking. Onset: The rn symptoms/episode began/occurred last night. Associated injuries: The patient sustained injury to the chest, specifically the left lateral posterior chest. Associated injuries: The patient sustained injury to the head. Severity of symptoms: At their worst the symptoms were moderate, in the emergency department the symptoms are unchanged. The patient has not experienced similar symptoms in the past. The patient has not recently seen a physician. Pt states fell in kitchen last night, able to get up and go to room, increased pain this AM to left ribs/flank. + head injury. NO known anticoagulants. No leg or hip pain.. Historical: - Allergies: 09:34 Latex, Natural Rubber; vg1 09:34 Morphine; vg1 - Home Meds: 09:34 gabapentin Oral [Active]; Nitroglycerin Oral [Active]; omeprazole 40 mg Oral cpDR 1 cap vg1 once daily [Active]; oxybutynin chloride 10 mg Oral tr24 1 tab once daily [Active]; rosuvastatin 10 mg Oral tab 1 tab once daily [Active]; Trazodone Oral [Active]; Tramadol Oral [Active]; - PMHx: 09:34 Atrial fibrillation; Hyperlipidemia; Hypertensive disorder; Fx T11-12; vg1 - PSHx: 09:34 partial hysterectomy; vg1 - Immunization history: Last tetanus immunization: unknown. - Social history:: Smoking status: Patient/guardian denies using tobacco, but has a distant history of tobacco abuse. - Family history:: not pertinent. - Hospitalizations: : No recent hospitalization is reported. ROS: 09:30 Constitutional: Negative for fever, chills, and weight loss, Cardiovascular: Negative rn for palpitations, and edema, Respiratory: Negative for shortness of breath, cough, wheezing Abdomen/GI: Negative for abdominal pain, nausea, vomiting, diarrhea, and constipation Back: Negative for injury and pain, MS/Extremity: Negative for injury and deformity, Skin: Negative for injury, rash, and discoloration, Neuro: + mild headache Exam: 09:30 Constitutional: This is a well developed, well nourished patient who is awake, alert, rn appears in pain, laying on right side Head/Face: Normocephalic, atraumatic. Chest/axilla: + left lateral rib tenderness, no crepitus. Cardiovascular: Bradycardic, regular. No pulse deficits. Respiratory: No increased work of breathing, no retractions or nasal flaring. Abdomen/GI: Soft, non-tender Back: No spinal tenderness. Skin: Warm, dry MS/ Extremity: Pulses equal, no cyanosis. Neurovascular intact. Full, normal range of motion of all 4 extremities without pain. Equal circumference. Neuro: Awake and alert, GCS 15, oriented to person, place and situation. + left forehead contusion/abrasion, no laceration, no hematoma. Vital Signs: 09:25 BP 126 / 57; Pulse 52; Resp 15; Temp 98.1(TE); Pulse Ox 98% on R/A; Weight 49.44 kg; vg1 Height 5 ft. 1 in. ; Pain 9/10; 10:07 BP 132 / 54; Pulse 55; Resp 13; Pulse Ox 98% on R/A; vg1 11:01 BP 140 / 64; Pulse 51; Resp 18; Pulse Ox 98% on R/A; ld1 09:25 Body Mass Index 20.60 (49.44 kg, 154.94 cm) vg1 09:25 Pain Scale: Adult vg1 [place] Coma Score: 09:25 Eye Response: spontaneous(4). Motor Response: obeys commands(6). Verbal Response: vg1 oriented(5). Total: 15. Trauma Score (Adult): 09:25 Eye Response: spontaneous(1); Verbal Response: oriented(1); Motor Response: obeys vg1 commands(2); Systolic BP: > 89 mm Hg(4); Respiratory Rate: 10 to 29 per min(4); Sierra Score: 15; Trauma Score: 12 MDM: 09:22 Patient medically screened. rn 10:59 Differential diagnosis: abrasion, closed head injury, contusion, fracture, sprain, rn omkar. Data reviewed: vital signs, nurses notes, lab test result(s), radiologic studies, CT scan, and as a result, I will discharge patient. Counseling: I had a detailed discussion with the patient and/or guardian regarding: the historical points, exam findings, and any diagnostic results supporting the discharge/admit diagnosis, lab results, radiology results, the need for further work-up and treatment in the hospital. Response to treatment: the patient's symptoms have mildly improved after treatment, and as a result, I will discharge patient. Special discussion: I discussed with the patient/guardian in detail that at this point there is no indication for admission to the hospital. It is understood, however, that if the symptoms persist or worsen the patient needs to return immediately for re-evaluation. Based on the history and exam findings, there is no indication for further emergent testing or inpatient evaluation. I discussed with the patient/guardian the need to see the primary care provider for further evaluation of the symptoms. ED course: Pt declines pain medication, 2 rib fractures on left side, no pneumothorax, no bleeding, no spleen injury noted. Spoke at length with family regarding what not to do after rib fractures and given strict return precautions. Given incentive spirometer. Pt already with prescription for tramadol at home and does well with it.. 10/20 09:24 Order name: CBC with Diff; Complete Time: 09:53 rn 10/20 09:24 Order name: Basic Metabolic Panel; Complete Time: 10:11 rn 10/20 09:24 Order name: Protime (+inr); Complete Time: 09:53 rn 10/20 09:24 Order name: Ptt, Activated; Complete Time: 09:53 rn 10/20 09:24 Order name: CT Traumagram (Head C Spine CAP wo con); Complete Time: 10:40 rn 10/20 10:57 Order name: INCENTIVE SPIROMETRY rn 10/20 09:24 Order name: IV Start; Complete Time: 09:37 rn Administered Medications: No medications were administered Disposition Summary: 10/20/22 11:01 Discharge Ordered Location: Home rn Problem: new rn Symptoms: have improved rn Condition: Stable rn Diagnosis - Multiple fractures of ribs, left side - 11 and 12 rn Followup: rn - With: Private Physician - When: As needed - Reason: Recheck today's complaints, Re-evaluation by your physician Discharge Instructions: - Discharge Summary Sheet rn - Rib Fracture rn - How to Use an Incentive Spirometer rn Forms: - Medication Reconciliation Form rn - Thank You Letter rn - Antibiotic design intern - Prescription Opioid Use rn Signatures: Dispatcher [employer] Morales Lima MD MD rn Garcia, Victoria, RN RN vg1 Corrections: (The following items were deleted from the chart) 09:37 09:34 Home Meds: Xarelto 20 mg Oral tab 1 tab once daily; vg1 vg1
--- NOTE | 2022-10-20 11:02 | ER ---
Nurse's Notes [facility] Name: Maureen Martin Age: 87 yrs Sex: Female : 1935 Arrival Date: 10/20/2022 Time: 09:19 Bed 6 Private MD: Diagnosis: Multiple fractures of ribs, left side-11 and 12 Presentation: 10/20 09:25 Chief complaint: EMS states: Pt fell in kitchen last night, pt stated "doesn't remember vg1 how I fell" After falling pt picked self up and walked to room. Pt woke up this morning with left sided pain. Denies blood thinners, pt appears to have a skin tear on forehead and Left elbow. Pt initial BP 87/51 after 350 mL LR pt BP 97/61. Care prior to arrival: IV initiated. 20 GA, in the left forearm. Mechanism of Injury: Fall from standing position. Trauma event details: Injury occurred in the [facility]. 09:25 Acuity: TAYLA 3 vg1 09:25 Method Of Arrival: EMS: [facility] vg1 09:34 Coronavirus screen: Vaccine status: Patient reports being unvaccinated. Client denies vg1 travel out of the [place] in the last 14 days. Ebola Screen: Patient negative for fever greater than or equal to 101.5 degrees Fahrenheit, and additional compatible Ebola Virus Disease symptoms Patient denies exposure to infectious person. Patient denies travel to an Ebola-affected area in the 21 days before illness onset. Initial Sepsis Screen: Does the patient meet any 2 criteria? No. Patient's initial sepsis screen is negative. Does the patient have a suspected source of infection? No. Patient's initial sepsis screen is negative. Risk Assessment: Do you want to hurt yourself or someone else? Patient reports no desire to harm self or others. Onset of symptoms was October 20, 2022. Historical: - Allergies: 09:34 Latex, Natural Rubber; vg1 09:34 Morphine; vg1 - Home Meds: :34 gabapentin Oral [Active]; Nitroglycerin Oral [Active]; omeprazole 40 mg Oral cpDR 1 cap vg1 once daily [Active]; oxybutynin chloride 10 mg Oral tr24 1 tab once daily [Active]; rosuvastatin 10 mg Oral tab 1 tab once daily [Active]; Trazodone Oral [Active]; Tramadol Oral [Active]; - PMHx: 09:34 Atrial fibrillation; Hyperlipidemia; Hypertensive disorder; Fx T11-12; vg1 - PSHx: 09:34 partial hysterectomy; vg1 - Immunization history: Last tetanus immunization: unknown. - Social history:: Smoking status: Patient/guardian denies using tobacco, but has a distant history of tobacco abuse. - Family history:: not pertinent. - Hospitalizations: : No recent hospitalization is reported. Screenin:25 Abuse screen: Denies threats or abuse. Denies injuries from another. Nutritional vg1 screening: No deficits noted. Tuberculosis screening: No symptoms or risk factors identified. 09:37 [facility] ED Fall Risk Assessment (Adult) History of falling in the last 3 months, vg1 including since admission Yes- single mechanical fall (1 pt) Confusion or Disorientation No (0 pts) Intoxicated or Sedated No (0 pts) Impaired Gait No (0 pts) Mobility Assist Device Used No (0 pt) Altered Elimination No (0 pt) Score/Fall Risk Level 0 - 2 = Low Risk Oriented to surroundings, Maintained a safe environment, Educated pt \\T\\ family on fall prevention, incl call for assistance when getting out of bed, Assessed \\T\\ reinforced patient's understanding of fall precautions, Provided non-skid footwear. Primary Survey: 09:25 NO uncontrolled hemorrhage observed. A: The client is awake and alert. The airway is vg1 patent. Breathing/Chest: Spontaneous respiratory effort, equal unlabored respirations, breath sounds clear bilaterally, regular pattern, symmetrical chest rise and fall. Circulation: No external hemorrhage present. Regular and strong central pulse, skin warm/dry/normal color. Disability Client is alert. Exposure/Environment: All clothing and personal items were removed. Forensic evidence collection is not deemed to be indicated at this time. Items placed in patient belonging bag. There is no evidence of uncontrolled external bleeding. pt c/o left sided pain near left ribs A warming method has been applied: A warm blanket has been provided to the patient. 11:22 Reassessment Breathing: Spontaneous respiratory effort, equal unlabored respirations, ld1 breath sounds clear bilaterally, regular pattern with symmetrical chest rise and fall. Secondary Survey: 09:25 HEENT: Head Other appears to have a skin tear to forehead. Gastrointestinal: Abdomen is vg1 soft, flat. : No signs and/or symptoms were reported regarding the genitourinary system. Musculoskeletal: Circulation, motion, and sensation intact. Assessment: 09:25 General: Appears uncomfortable, Behavior is cooperative. Pain: Complains of pain in vg1 left subscapular area and mid back area Pain currently is 9 out of 10 on a pain scale. Pain began yesterday around 1999. Neuro: Level of Consciousness is awake, alert, obeys commands, Oriented to person, place, time, situation. EENT: No signs and/or symptoms were reported regarding the EENT system. Cardiovascular: Patient's skin is warm and dry. Respiratory: Airway is patent Respiratory effort is even, unlabored. GI: Patient currently denies nausea, vomiting. : No signs and/or symptoms were reported regarding the genitourinary system. Derm: appears to have skin tears to forehead and Left elbow. Musculoskeletal: Circulation, motion, and sensation intact. 10:06 Reassessment: Patient appears in no apparent distress at this time. No changes from vg1 previously documented assessment. Patient and/or family updated on plan of care and expected duration. Pain level reassessed. Patient is alert, oriented x 3, equal unlabored respirations, skin warm/dry/pink. Pt daughter stated pt is currently on Xarelto for Afib; provider notified. Vital Signs: 09:25 BP 126 / 57; Pulse 52; Resp 15; Temp 98.1(TE); Pulse Ox 98% on R/A; Weight 49.44 kg; vg1 Height 5 ft. 1 in. ; Pain 9/10; 10:07 BP 132 / 54; Pulse 55; Resp 13; Pulse Ox 98% on R/A; vg1 11:01 BP 140 / 64; Pulse 51; Resp 18; Pulse Ox 98% on R/A; ld1 09:25 Body Mass Index 20.60 (49.44 kg, 154.94 cm) vg1 09:25 Pain Scale: Adult vg1 [place] Coma Score: 09:25 Eye Response: spontaneous(4). Motor Response: obeys commands(6). Verbal Response: vg1 oriented(5). Total: 15. Trauma Score (Adult): 09:25 Eye Response: spontaneous(1); Verbal Response: oriented(1); Motor Response: obeys vg1 commands(2); Systolic BP: > 89 mm Hg(4); Respiratory Rate: 10 to 29 per min(4); Sierra Score: 15; Trauma Score: 12 ED Course: 09:22 Patient arrived in ED. rn 09:22 Morales Cadena MD is Attending Physician. rn 09:24 Ainsley Angulo RN is Primary Nurse. ld1 09:25 Patient has correct armband on for positive identification. Placed in gown. Bed in low vg1 position. Call light in reach. Side rails up X2. Adult w/ patient. 09:25 Patient maintains SpO2 saturation greater than 95% on room air. vg1 09:29 Triage completed. vg1 09:33 Maintain EMS IV. Dressing intact. Good blood return noted. Site clean \\T\\ dry. Gauge \\T\\ zm site: 20g LFA . 09:34 Arm band placed on. vg1 09:37 Thermoregulation: warm blanket given to patient. vg1 09:37 CBC with Diff Sent. kl 09:37 Basic Metabolic Panel Sent. kl 09:37 Ptt, Activated Sent. kl 09:37 Protime (+inr) Sent. kl 09:53 CT Traumagram (Head C Spine CAP wo con) In Process Unspecified. EDMS 11:22 No provider procedures requiring assistance completed. IV discontinued, intact, ld1 bleeding controlled, No redness/swelling at site. Administered Medications: No medications were administered Medication: 11:22 VIS not applicable for this client. ld1 Intake: 09:25 IV: 350ml (IV Fluid); Total: 350ml. vg1 Outcome: 11:01 Discharge ordered by . rn 11:22 Discharged to home ambulatory. ld1 11:22 Condition: stable 11:22 Discharge instructions given to patient, Instructed on discharge instructions, follow up and referral plans. Demonstrated understanding of instructions, follow-up care. 11:23 Patient left the ED. ld1 Signatures: Dispatcher [employer] EDMS Ashley Warner RN RN kl Nieto, Roman, MD MD rn Garcia, Victoria, RN RN vg1 Sims, Lauren, RN RN ld1 Fransisca Baer Corrections: (The following items were deleted from the chart) 09:37 09:34 Home Meds: Xarelto 20 mg Oral tab 1 tab once daily; vg1 vg1 09:49 09:47 Maintain EMS IV. Dressing intact. Good blood return noted. Site clean \\T\\ dry. zm Gauge \\T\\ site: 20g LFA . zm
[2022-10-20 12:00] VITALS: TEMP 98.1; O2SAT 98
[2022-10-20 12:03] VITALS: BP 140/64
== END 2022-10-20 11:23 | disposition home or self-care (01) ==
LOC: ER 09:19
DX: S22.42XA Multiple fractures of ribs, left side, initial encounter for closed fracture (principal); S00.83XA Contusion of other part of head, initial encounter; W18.39XA Other fall on same level, initial encounter; R07.81 Pleurodynia; Z88.5 Allergy status to narcotic agent; Z91.040 Latex allergy status; I48.91 Unspecified atrial fibrillation; E78.5 Hyperlipidemia, unspecified; I10 Essential (primary) hypertension
CPT/HCPCS: 36415; 70450; 71250; 72125; 80048; 85025; 85610; 85730; 99284

== ENCOUNTER 2024-06-10 13:30 | Inpatient (IN) | payer OTHER ==
[2024-06-10 14:20] LABS: Absolute Basophils 0.1 K/uL (0-0.5); Absolute Eosinophils 0.1 K/uL (0-0.5); Absolute Lymphocytes (CBC) 1.3 K/uL (0.7-4.9); Absolute Monocytes 0.5 K/uL (0.1-1.3); Absolute Neutrophil 4.4 K/uL (1.8-8.0); Basophils % 2.3 % (0-1.3); Hemoglobin 12.9 g/dL (12.0-15.0); Lymphocytes % 19.6 % (15.3-44.8); MCH 31.9 pg (27.0-35.0); MCHC 33.9 g/dL (32.0-36.0); MPV 7.9 fL (7.6-11.3); Neutrophils % 69.1 % (41.7-73.7); Nucleated Red Blood Cells % 0.1 % (0-0); Platelets 147 thou/uL (152-406); RBC Red Blood Cell Count 4.04 M/uL (3.86-4.86); Red Cell Distribution Width 13.2 % (12.1-15.2)
[2024-06-10 14:33] LABS: Anion Gap 7.6 mEq/L (5.0-15.0); Potassium 3.6 mEq/L (3.5-5.1); Troponin High Sensitivity 9.4 pg/mL (<58.9)
--- NOTE | 2024-06-10 14:45 | RAD REPORT ---
EXAM: Chest Single View HISTORY: CHEST PAIN COMPARISON: 04/23/2022 FINDINGS: LUNGS/PLEURA: The lungs are clear. No pleural effusions or pneumothorax. No pulmonary edema. MEDIASTINUM: The mediastinal silhouette is within normal limits. CARDIAC: Mild cardiomegaly UPPER ABDOMEN: No significant abnormality. BONES: No acute abnormality. LINES/TUBES/OTHER: N/A IMPRESSION: No evidence of acute cardiopulmonary disease.
--- NOTE | 2024-06-10 14:59 | EDPHYS ---
Physician Documentation [facility] Name: Maureen Martin Age: 88 yrs Sex: Female : 1935 Arrival Date: 06/10/2024 Time: 13:30 Bed 18 Private MD: ED Physician Morales Cadena HPI: 06/10 14:16 This 88 yrs old Female presents to ER via EMS with complaints of Chest Pain. kb 14:56 Patient is an 88-year-old female who presents for chest pain that started just prior to kb arrival. Patient states her daughter gave her 3 nitro just after the pain started and then called 911. Daughter states blood pressure after the 3 nitro was 60/48 so she put her legs up and gave her some water. EMS reports systolic of 90 upon their arrival, up to 140 systolic and route. Patient states pain has resolved since nitro. Patient now has no complaints.. Historical: - Allergies: 13:42 Latex; me1 13:42 Morphine; me1 - PMHx: 13:42 Atrial fibrillation; Hyperlipidemia; Fx T11-12; Hypertensive disorder; me1 - PSHx: 13:42 partial hysterectomy; me1 - Immunization history:: Adult Immunizations up to date. - Infectious Disease History:: Denies. - Social history:: Smoking status: Patient/guardian denies using tobacco, but has a distant history of tobacco abuse. ROS: 14:16 Constitutional: As per HPI kb Exam: 14:16 Constitutional: This is a well developed, well nourished patient who is awake, alert, kb and in no acute distress. Head/Face: Normocephalic, atraumatic. ENT: Moist Mucous membranes Cardiovascular: Regular rate Respiratory: Respirations even and unlabored. No increased work of breathing. Talking in full sentences Abdomen/GI: Soft, non-tender. No distention Skin: Warm, dry with normal turgor. Normal color. MS/ Extremity: Pulses equal, no cyanosis. Neurovascular intact. Full, normal range of motion. Neuro: Awake and alert, GCS 15, oriented to person, place, time, and situation. 14:16 ECG was reviewed by the Attending Physician. Vital Signs: 13:37 BP 124 / 61; Pulse 52; Resp 15; Temp 98.2; Pulse Ox 99% ; Weight 47.63 kg; Height 5 ft. me1 1 in. ; Pain 0/10; 14:00 BP 132 / 52; Pulse 46; Resp 16; Pulse Ox 98% on R/A; me1 15:00 BP 136 / 60; Pulse 45; Resp 17; Pulse Ox 97% ; me1 21:00 BP 154 / 68; Pulse 57; Resp 20; Pulse Ox 96% on R/A; ay 13:37 Body Mass Index 19.84 (47.63 kg, 154.94 cm) me1 13:37 Pain Scale: Adult me1 MDM: 13:34 Medical Screening Exam initiated kb 14:47 Data reviewed: vital signs, nurses notes. kb 14:57 Differential diagnosis: Acute CA, arrhythmia, abnormal electrolytes, bradycardia, kb hypotension. Consideration of Admission/Observation Patient was admitted/placed on observation. Escalation of care including admission/observation considered. Management of patient was discussed with the following: Hospitalist: Hospitalist team, patient accepted for admission under Dr. Carvajal. Historians other than the Patient: EMS: [facility]. Family Member: Daughter. Counseling: I had a detailed discussion with the patient and/or guardian regarding the historical points, exam findings, and any diagnostic results supporting the discharge/admit diagnosis, lab results, radiology results, the need for further work-up and treatment in the hospital. 06/10 13:34 Order name: Basic Metabolic Panel; Complete Time: 14:34 kb 06/10 13:34 Order name: CBC with Diff; Complete Time: 14:22 kb 06/10 13:34 Order name: Magnesium; Complete Time: 14:34 kb 06/10 13:34 Order name: NT PRO-BNP; Complete Time: 14:34 kb 06/10 13:34 Order name: Troponin HS; Complete Time: 14:34 kb 06/10 16:19 Order name: T4 Free EDAK 06/10 16:19 Order name: Thyroid Stimulating Hormone EDAK 06/10 16:19 Order name: Urinalysis w/ reflexes EDAK 06/10 16:19 Order name: Basic Metabolic Panel EDAK 06/10 16:19 Order name: Basic Metabolic Panel EDAK 06/10 16:19 Order name: Basic Metabolic Panel EDAK 06/10 16:19 Order name: Basic Metabolic Panel EDAK 06/10 16:19 Order name: CBC with Automated Diff EDAK 06/10 16:19 Order name: CBC with Automated Diff EDAK 06/10 16:19 Order name: CBC with Automated Diff EDMS 06/10 16:19 Order name: CBC with Automated Diff EDMS 06/10 16:19 Order name: Hemoglobin A1c EDMS 06/10 16:19 Order name: Hemoglobin A1c EDMS 06/10 16:19 Order name: Lipid Profile EDMS 06/10 16:19 Order name: Lipid Profile EDMS 06/10 16:19 Order name: Magnesium EDMS 06/10 16:19 Order name: Magnesium EDMS 06/10 16:19 Order name: Magnesium EDMS 06/10 16:19 Order name: Magnesium EDMS 06/10 16:19 Order name: Phosphorus EDMS 06/10 16:19 Order name: Phosphorus EDMS 06/10 16:19 Order name: Phosphorus EDMS 06/10 16:19 Order name: Phosphorus EDMS 06/10 16:19 Order name: Troponin High Sensitivity EDMS 06/10 16:19 Order name: Troponin High Sensitivity EDMS 06/10 16:19 Order name: Troponin High Sensitivity EDMS 06/10 13:34 Order name: XRAY Chest (1 view); Complete Time: 14:46 kb 06/10 16:19 Order name: Echo with Doppler MS 06/10 16:19 Order name: Echo with Doppler EDMS 06/10 16:19 Order name: Physical Therapy Consult EDMS 06/10 13:34 Order name: Cardiac monitoring; Complete Time: 14:20 kb 06/10 13:34 Order name: EKG - Nurse/Tech; Complete Time: 14:20 kb 06/10 13:34 Order name: IV Saline Lock; Complete Time: 14:04 kb 06/10 13:34 Order name: Labs collected and sent; Complete Time: 14:04 kb 06/10 13:34 Order name: O2 Per Protocol; Complete Time: 14:04 kb 06/10 13:34 Order name: O2 Sat Monitoring; Complete Time: 14:04 kb EC:16 Rate is 43 beats/min. Rhythm is irregularly irregular. QRS interval is normal at 130 kb msec. QT interval is normal at 436 msec. Administered Medications: No medications were administered Disposition: 06/11 17:22 Co-signature as Attending Physician, Morales Cadena MD I reviewed the patient's care rn provided by the Advanced Practice Provider and agree with the diagnosis and treatment plan. Disposition Summary: 06/10/24 14:58 Hospitalization Ordered Notes: Hospitalization Status: Observation kb Provider: Jordy Carvajal Condition: Stable kb Problem: new kb Symptoms: are unchanged kb Bed/Room Type: Standard kb Location: Telemetry/MedSurg (observation)(06/10/24 21:14) rv1 Room Assignment: 416(06/10/24 21:14) rv1 Diagnosis - Chest pain, unspecified kb - Bradycardia, unspecified kb - Unspecified atrial fibrillation kb Forms: - Medication Reconciliation Form kb - SBAR form kb - Leadership Thank You Letter kb Signatures: Dispatcher [employer] EDMS Ronit Sharma, ASSOCIATE LOAN OFFICER-C ASSOCIATE LOAN OFFICER-Ckb Morales Cadena MD MD rn Alina Novoa 1 Kalyn Mendiola RN RN me1 Corrections: (The following items were deleted from the chart) 06/10 13:34 13:34 Chest Single View+[email or web address] ordered. EDMS EDMS 19:08 14:58 Telemetry/MedSurg (observation) kb rv1 19:08 14:58 kb rv1 21:14 19:08 BR ER HOLD rv1 rv1 21:14 19:08 ERHOLD- rv1 rv1
--- NOTE | 2024-06-10 14:59 | ER ---
Nurse's Notes [facility] Name: Maureen Martin Age: 88 yrs Sex: Female : 1935 Arrival Date: 06/10/2024 Time: 13:30 Bed 18 Private MD: Diagnosis: Chest pain, unspecified;Bradycardia, unspecified;Unspecified atrial fibrillation Presentation: 06/10 13:37 Chief complaint: EMS states: toned out for chest pain that started about 30 minutes me1 ago, Given nitro SL x 3 within about 10 mins and chest pain resolved. Was hypotensive when EMS arrived but bp on arrival to ER by EMS was 150s/90s. 20 g to LAC. Coronavirus screen: Vaccine status: Patient reports being unvaccinated. Ebola Screen: No symptoms or risks identified at this time. Initial Sepsis Screen: Does the patient meet any 2 criteria? No. Patient's initial sepsis screen is negative. Does the patient have a suspected source of infection? No. Patient's initial sepsis screen is negative. Risk Assessment: Do you want to hurt yourself or someone else? Patient reports no desire to harm self or others. Onset of symptoms was June 10, 2024 at 13:00. 13:37 Method Of Arrival: EMS: [facility] me1 13:37 Acuity: TAYLA 3 me1 Triage Assessment: 13:42 General: Appears comfortable, well developed, well nourished, Behavior is calm, me1 cooperative, appropriate for age. Pain: Denies pain. EENT: No signs and/or symptoms were reported regarding the EENT system. Neuro: Level of Consciousness is awake, alert, obeys commands, Oriented to person, place, time, situation, Appropriate for age. Cardiovascular: Patient's skin is warm and dry. Cardiovascular: Reports chest pain. Respiratory: Airway is patent Respiratory effort is even, unlabored, Respiratory pattern is regular, symmetrical. GI: No signs and/or symptoms were reported involving the gastrointestinal system. : No signs and/or symptoms were reported regarding the genitourinary system. Derm: Skin is intact, is healthy with good turgor, Skin is pink, warm \T\ dry. Musculoskeletal: No signs and/or symptoms reported regarding the musculoskeletal system. Historical: - Allergies: 13:42 Latex; me1 13:42 Morphine; me1 - PMHx: 13:42 Atrial fibrillation; Hyperlipidemia; Fx T11-12; Hypertensive disorder; me1 - PSHx: 13:42 partial hysterectomy; me1 - Immunization history:: Adult Immunizations up to date. - Infectious Disease History:: Denies. - Social history:: Smoking status: Patient/guardian denies using tobacco, but has a distant history of tobacco abuse. Screenin:[address] [facility] ED Fall Risk Assessment (Adult) History of falling in the last 3 months, me1 including since admission No falls in past 3 months (0 pts) Confusion or Disorientation No (0 pts) Intoxicated or Sedated No (0 pts) Impaired Gait No (0 pts) Mobility Assist Device Used No (0 pt) Altered Elimination No (0 pt) Score/Fall Risk Level 0 - 2 = Low Risk Maintained a safe environment, Provided non-skid footwear, Hourly rounding (assess needs \T\ fall precautionary measures) done. Abuse screen: Denies threats or abuse. Nutritional screening: No deficits noted. Tuberculosis screening: No symptoms or risk factors identified. Assessment: 13:44 Reassessment: See triage assessment. Pain: Denies pain. Complains of pain in chest Pain me1 does not radiate. Pain currently is 0 out of 10 on a pain scale. at worst was 10 out of 10 on a pain scale. Quality of pain is described as pressure, Pain began Is lasting a few minutes. 19:33 Reassessment: Pt alert but unwilling to respond to questions. No distress noted. ay Vital Signs: 13:37 BP 124 / 61; Pulse 52; Resp 15; Temp 98.2; Pulse Ox 99% ; Weight 47.63 kg; Height 5 ft. me1 1 in. ; Pain 0/10; 14:00 BP 132 / 52; Pulse 46; Resp 16; Pulse Ox 98% on R/A; me1 15:00 BP 136 / 60; Pulse 45; Resp 17; Pulse Ox 97% ; me1 21:00 BP 154 / 68; Pulse 57; Resp 20; Pulse Ox 96% on R/A; ay 13:37 Body Mass Index 19.84 (47.63 kg, 154.94 cm) me1 13:37 Pain Scale: Adult me1 ED Course: 13:33 Patient arrived in ED. kb 13:33 Ronit Sharma FNP-C is PHCP. kb 13:33 Morales Cadena MD is Attending Physician. kb 13:37 Kalyn Mendiola, RN is Primary Nurse. me1 13:42 Triage completed. me1 13:42 Arm band placed on Patient placed in an exam room. me1 13:44 Patient has correct armband on for positive identification. Bed in low position. Call me1 light in reach. Side rails up X2. Provided Education on: POC. Verbalized understanding.. Client placed on continuous cardiac and pulse oximetry monitoring. NIBP monitoring applied. alarm security or surveillance monitor on. Pulse ox on. NIBP on. Warm blanket given. 13:44 No provider procedures requiring assistance completed. Patient maintains SpO2 me1 saturation greater than 95% on room air. 14:20 Initial lab(s) drawn, by me, sent to lab. EKG done, by ED staff, reviewed by Ronit ALY. Maintain EMS IV. Dressing intact. Good blood return noted. Site clean \T\ dry. Gauge \T\ site: 20g LAC. Flushed with 10 mL NS. 14:32 XRAY Chest (1 view) In Process Unspecified. EDMS 14:58 Jordy Carvajal is Hospitalizing Provider. kb 23:13 Patient admitted, IV remains in place. ay Administered Medications: No medications were administered Medication: 13:44 VIS not applicable for this client. me1 Outcome: 14:58 Decision to Hospitalize by Provider. kb 23:13 Admitted to Tele accompanied by tech, family with patient, ay 23:13 Condition: stable 23:13 Instructed on the need for admit, 23:14 Patient left the ED. ay Signatures: Dispatcher [employer] EDMS Ronit Sharma, SHEEBA MIXER CRANE OPERATOR-Kalyn Muro, RN RN me1 Rodrigo Cook RN RN ay
[2024-06-10] MEDS ORDERED: NITROGLYCERIN 0.4 MG/TAB SL PRN (16:09)
[2024-06-10] MEDS ORDERED: ACETAMINOPHEN 325 MG TABLET PO PRN (16:09)
--- NOTE | 2024-06-10 16:26 | P.HP ---
Certification for Inpatient Patient admitted to: Observation With expected LOS: <2 Midnights Patient will require the following post-hospital care: None Practitioner: I am a practitioner with admitting privileges, knowledge of patient current condition, hospital course, and medical plan of care. Services: Services provided to patient in accordance with Admission requirements found in Title 42 Section 412.3 of the Code of Federal Regulations Patient History Date of Service: 06/10/24 Reason for admission: Chest pain r/o History of Present Illness: Maureen Martin is an 88 year old female with pmhx HLD, HTN, Afib on eliquis, Fx T11-12, heart valvular dysfunction who presents to the ED with chest pain relieved by nitroglycerin x3. She denies an TN or CAD in the past, but has had chest pain before. Daughter and patient are poor historians. It seems, Maureen has a valvular dysfunction but unsure of the details. Significant lab is the BNP 993. Chest xray with no acute findings. Initial vitals BP 124 / 61; Pulse 52; Resp 15; Temp 98.2; Pulse Ox 99%. EKG sinus bradycardia. Maureen will be admitted to hospitalist service for further evaluation of chest pain r/o, Dr. Valle consulted and plans for a stress test in the AM. Allergies Latex, Natural Rubber Allergy (Verified 03/30/21 22:20) Itching/Hives/Rash morphine Allergy (Verified 03/31/21 11:43) Itching/Hives/Rash Home Medications: Rivaroxaban [Xarelto*] 20 mg PO DAILY #30 tab 09/15/13 Nitroglycerin [Nitrostat] 0.4 mg SL PRN PRN 03/29/21 Omeprazole [Prilosec] 40 mg PO DAILY 03/29/21 Oxybutynin Chloride [Oxybutynin Chloride ER] 5 mg PO BID 03/29/21 Rosuvastatin [Crestor] 10 mg PO BEDTIME 03/29/21 - Past Medical/Surgical History Diabetic: No -: Tobacco abuse -: HTN -: HLD -: Afib -: colonoscopy (-) -: Vaginal Hysterectomy Psychosocial/ Personal History: , Children-3, 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 - Family History Mother -: Kidney disease - Social History Smoking Status: Former smoker Alcohol use: Yes CD- Drugs: No Caffeine use: No Review of Systems Cardiovascular: Chest Pain Physical Examination - Physical Exam General: Alert, In no apparent distress, Oriented x3 HEENT: Atraumatic, Normocephalic Neck: Supple, 2+ carotid pulse no bruit, JVD not distended Respiratory: Clear to auscultation bilaterally, Normal air movement Cardiovascular: Normal pulses, Regular rate/rhythm, Normal S1 S2 Capillary refill: <2 Seconds Gastrointestinal: Normal bowel sounds, Soft and benign Musculoskeletal: No clubbing Integumentary: No rashes Neurological: Normal speech, Normal tone - Studies Laboratory Data (last 24 hrs) 06/10/24 06/10/24 14:07 14:07 WBC 6.40 Hgb 12.9 Hct 38.0 Plt Count 147 L Sodium 138 Potassium 3.6 BUN 21 H Creatinine 0.75 Glucose 106 Magnesium 2.0 Assessment and Plan - Plan Assessment and Plan Chest pain r/o History of Afib on Eliquis History of heart valve disfunction - NPO in the AM for stress test -Continue home medications as appropriate - EKG: No obvious ST segment changes, Sinus bradycardia - troponin 9.4 , Serial pending - BNP 993 - Ordered transthoracic echocardiogram - chest x-ray- no acute findings - Consult Cardiology - Stress test 06/11 - Nitroglycerin x3 prior to arrival - Start daily baby aspirin and statin - Symptom control with PRN acetaminophen, nitroglycerin, allergic to morphine - continuous telemetry -TSH/FreeT4, A1C, lipid panel pending -Cardiology switched Xarelto for Eliquis HTN/HLD Fx T11-12 -continue home medications as appropriate DVT ppx heparin SQ until Eliquis is restarted Full code LOS 24 hour OBS Discharge Plan: Home Plan to discharge in: 24 Hours - Advance Directives Does patient have a Living Will: No Does patient have a Durable POA for Healthcare: No
[2024-06-10] MEDS: ASPIRIN EC 81 MG TAB PO SCH (17:04)
[2024-06-10 17:06] VITALS: BMI 19.8
[2024-06-10] MEDS ORDERED: ASPIRIN EC 81 MG TAB PO ONE (17:16)
[2024-06-10] MEDS: ATORVASTATIN 40 MG TAB PO SCH (21:00)
[2024-06-10] MEDS ORDERED: ATORVASTATIN 40 MG TAB ONE (22:27)
[2024-06-10 23:56] LABS: Thyroid Stimulating Hormone 7.57 uIU/mL (0.358-3.740)
[2024-06-11 05:58] LABS: Absolute Eosinophils 0.1 K/uL (0-0.5); Absolute Monocytes 0.7 K/uL (0.1-1.3); Absolute Neutrophil 3.5 K/uL (1.8-8.0); Basophils % 0.5 % (0-1.3); Eosinophils % 1.1 % (0-4.4); Hematocrit 41.2 % (36.0-45.0); Hemoglobin 14.4 g/dL (12.0-15.0); Lymphocytes % 31.5 % (15.3-44.8); MCH 32.3 pg (27.0-35.0); MCHC 34.9 g/dL (32.0-36.0); MCV 92.6 fL (80-100); MPV 8.7 fL (7.6-11.3); Monocytes % 10.6 % (3.3-12.3); Neutrophils % 56.3 % (41.7-73.7); Platelets 156 thou/uL (152-406); RBC Red Blood Cell Count 4.45 M/uL (3.86-4.86); Red Cell Distribution Width 13.1 % (12.1-15.2)
[2024-06-11 06:07] LABS: Anion Gap 10.6 mEq/L (5.0-15.0); Magnesium 2.2 mg/dL (1.6-2.4); Phosphorus 2.7 mg/dL (2.5-4.9); Potassium 3.6 mEq/L (3.5-5.1)
[2024-06-11] MEDS ORDERED: REGADENOSON 0.4 MG/5 ML SYR IV ONE (08:59)
[2024-06-11] MEDS ORDERED: ENOXAPARIN 40 MG/0.4 ML SQ SCH (09:00)
--- NOTE | 2024-06-11 10:03 | RAD REPORT ---
EXAM: Nuclear medicine cardiac perfusion examination with ejection fraction HISTORY: Chest pain Chest pain releaved with nitro TECHNIQUE: Rest images: 10.3 mCi technetium 99m sestamibi Stress images: 31.5 mCi of technetium 99m sestamibi COMPARISON: 03/30/2021 FINDINGS: Tomographic images: There is diminished radiopharmaceutical cannulation noted in the LV apex appearin g similar on rest and stress suggesting scar tissue. Similarly, diminished radiopharmaceutical accumulation is also seen posterior wall and inferior wall. The LV cavity size appears to dilate with stress. Ejection fraction of 65%. EDV: 68 mL ESV: 24 mL LHR: 0.25 TID: 0.83 IMPRESSION: LV cavity size seen to dilate with stress which would indicate stress-induced ischemia is present. 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
[2024-06-11] MEDS: APIXABAN 5 MG TABLET PO SCH (10:45)
[2024-06-11] MEDS: GABAPENTIN 100 MG CAP PO SCH (10:45)
[2024-06-11] MEDS: oxyBUTYnin chloride 5 MG TAB PO SCH (10:45)
[2024-06-11 12:15] LABS: Specific Gravity 1.012 (1.005-1.030); Sqamous Epithelial <5 /HPF (None Seen); Urine Bacteria <20 /HPF (<20); Urine Bilirubin NEGATIVE (Negative); Urine Blood Negative (Negative); Urine Clarity Extremely Turbid (Clear); Urine Color Light-Yellow (Yellow); Urine Culture Reflex Order REFLEXED; Urine Glucose NEGATIVE (Negative); Urine Ketones NEGATIVE (Negative); Urine Microscopic Reflex YN ORDER UMIC; Urine Nitrite 2+ (Negative); Urine Protein NEGATIVE (Negative); Urine RBC None Seen /HPF (None Seen); Urine Urobilinogen Normal (Normal); Urine WBC 20-50 /HPF (<5); Urine pH 7.5 (5.0-7.0)
--- NOTE | 2024-06-11 12:31 | P.CNS ---
Date of Consult: 06/11/24 Chief Complaint: Chest pain r/o History of Present Illness: Patient with PMH of atrial fibrillation, presented with cehst pain, pressure in nature, left sided that required 3 SL NTG to get relieved, denies palpitations, no syncope, report RIOS, denies chest pain at time of interview. Allergies Latex, Natural Rubber Allergy (Verified 03/30/21 22:20) Itching/Hives/Rash morphine Allergy (Verified 03/31/21 11:43) Itching/Hives/Rash Home medications list reviewed: Yes Home Medications: Rivaroxaban [Xarelto*] 20 mg PO DAILY #30 tab 09/15/13 Nitroglycerin [Nitrostat] 0.4 mg SL PRN PRN 03/29/21 Omeprazole [Prilosec] 40 mg PO DAILY 03/29/21 Oxybutynin Chloride [Oxybutynin Chloride ER] 5 mg PO BID 03/29/21 Rosuvastatin [Crestor] 10 mg PO BEDTIME 03/29/21 Apixaban [Eliquis] 5 mg PO BID 06/11/24 Gabapentin 100 mg PO BID 06/11/24 Trazodone [Desyrel*] 50 mg PO BEDTIME 06/11/24 - Past Medical/Surgical History Diabetic: No -: Tobacco abuse -: HTN -: HLD -: Afib -: colonoscopy (-) -: Vaginal Hysterectomy Psychosocial/ Personal History: , 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 moist/pink, EOMI, Sclerae nonicteric Neck: Supple, 2+ carotid pulse no bruit, No LAD, Without JVD or thyroid abnormality Respiratory: Clear to auscultation bilaterally, Normal air movement Cardiovascular: Regular rate/rhythm, Normal S1 S2 Gastrointestinal: Normal bowel sounds, No tenderness Musculoskeletal: No tenderness Integumentary: No rashes Neurological: Normal gait, Normal speech, Normal tone, Normal affect Lymphatics: No axilla or inguinal lymphadenopathy Laboratory Data (last 24 hrs) 06/10/24 06/10/24 14:07 14:07 WBC 6.40 Hgb 12.9 Hct 38.0 Plt Count 147 L Sodium 138 Potassium 3.6 BUN 21 H Creatinine 0.75 Glucose 106 Magnesium 2.0 - Problems (1) Chest pain Current Visit: Yes Status: Acute Plan: Patient had a stress test that is abnormal. keep NPO after midnight for coronary angiogram in am Hold Eliquis start ASA 81 mg daily. (2) Atrial fibrillation Current Visit: No Status: Acute Plan: Patient tele shows AF in the 40-50 hold eliquis for now for coronary angiogram. Qualifiers: Atrial fibrillation type: longstanding persistent Qualified Code(s): I48.11 - Longstanding persistent atrial fibrillation
--- NOTE | 2024-06-11 14:15 | TREADPHA ---
DX: CHEST PAIN Date of Study: 06/11/24 Ht: 5' 1 " Wt: 105 lb 0 oz Consulting Physician: CARITO MEDICATIONS: TYLENOL, ASPIRIN, LIPITOR, LOVENOX, NITROSTAT HISTORY: NON SMOKER, NON DRUG USE, CHOLESTEROL, HEART RELATED ISSUES PHYSICIAL EXAMINATION: RESTING B.P.: 146/85 RESTING H.R.: 63 RESTING EKG: PROTOCOL: LEXISCAN EXERCISE TIME: 3:30 B.P. AT PEAK STRESS: 160/74 IMPRESSION: LEXISCAN INJECTED, CARDIOLITE INJECTED - SEE NUCLEAR MEDICINE REPORT. NO CHEST PAIN. NO VENTRICULAR TACHYCARDIA OR SUPRA VENTRICULAR TACHYCARDIA.
--- NOTE | 2024-06-11 14:19 | P.PN ---
Date of Service: 06/11/24 Subjective Awake ambulating in the room Abnormal stress test this morning, will have heart cath in the a.m. when 2825 Daughter at bedside ROS 10 point ROS as noted above, otherwise negative Physical Exam General: Alert and Oriented x3, NAD HEENT: Atraumatic, Normocephalic Neck: Supple, 2+ carotid pulse no bruit, JVD not distended Respiratory: Clear to auscultation bilaterally, Normal air movement Cardiovascular: Normal pulses, Afib with rate control, Normal S1 S2 Capillary refill: <2 Seconds Gastrointestinal: Normal active bowel sounds, Soft on palpation, ND/NT Musculoskeletal: No clubbing Integumentary: No rashes Neurological: Normal speech, Normal tone Vitals Reviewed Problem list Chest pain r/o History of Afib on Eliquis History of heart valve disfunction HTN/HLD Fx T11- Assessment and Plan Chest pain r/o History of Afib on Eliquis History of heart valve disfunction - NPO in the AM for stress test -Continue home medications as appropriate - EKG: No obvious ST segment changes, Sinus bradycardia - troponin 9.4/ 12.9/16.8 - BNP 993 - Ordered transthoracic echocardiogram - chest x-ray- no acute findings - Consult Cardiology - Stress test 06/11 abnormal, Heart cath in the AM 06/12 - Nitroglycerin x3 prior to arrival - Start daily baby aspirin and statin - Symptom control with PRN acetaminophen, nitroglycerin, allergic to morphine - continuous telemetry -TSH/FreeT4 7.570/0.86, A1C 6.0, lipid panel (Triglycerides 52, Cholesterol 125, LDL 61, HDL 54, -Cardiology switched Xarelto for Eliquis, hold Eliquis for heart cath in the AM 06/12 HTN/HLD Fx T11- -continue home medications as appropriate DVT ppx hold Eliquis for heart cath Full code LOS 24 hour OBS Discharge Plan: Home Plan to discharge in: 24 Hours
[2024-06-11] MEDS ORDERED: PNEUMOCOCCAL VACCINE 0.5 ML IMVAC ONE (20:00)
[2024-06-11] MEDS: TRAZODONE 50 MG TABLET PO SCH (20:06)
[2024-06-11] MEDS: ROSUVASTATIN 10 MG TAB PO SCH (20:06)
[2024-06-12] MEDS: LORazepam 2 MG/ML VIAL IV ONE (00:06)
[2024-06-12 06:28] LABS: Absolute Eosinophils 0.1 K/uL (0-0.5); Absolute Lymphocytes (CBC) 2.1 K/uL (0.7-4.9); Absolute Monocytes 0.7 K/uL (0.1-1.3); Absolute Neutrophil 3.6 K/uL (1.8-8.0); Basophils % 0.4 % (0-1.3); Eosinophils % 1.5 % (0-4.4); Hematocrit 41.5 % (36.0-45.0); Lymphocytes % 32.3 % (15.3-44.8); MCHC 33.8 g/dL (32.0-36.0); MCV 94.5 fL (80-100); MPV 8.6 fL (7.6-11.3); Monocytes % 11.1 % (3.3-12.3); Neutrophils % 54.7 % (41.7-73.7); Platelets 171 thou/uL (152-406); RBC Red Blood Cell Count 4.39 M/uL (3.86-4.86); Red Cell Distribution Width 13.2 % (12.1-15.2)
[2024-06-12 06:50] LABS: Anion Gap 10.8 mEq/L (5.0-15.0); Magnesium 2.3 mg/dL (1.6-2.4); Phosphorus 3.1 mg/dL (2.5-4.9); Potassium 3.8 mEq/L (3.5-5.1)
[2024-06-12] MEDS ORDERED: NA CHLORIDE 0.9% 500 ML ONE (08:02)
[2024-06-12] MEDS ORDERED: ATROPINE SULF 1 MG/10 ML SYR IV ONE (08:44)
[2024-06-12] MEDS ORDERED: HEPA 1000U/500MLS 2,000 UNIT/1,000 ML BAG IV ONE (08:44)
[2024-06-12] MEDS ORDERED: LIDOCAINE 1% 20 ML MDV ONE (08:44)
[2024-06-12] MEDS ORDERED: HEPARIN 5000 UNIT/ML 1 ML VIAL ONE (08:45)
[2024-06-12] MEDS ORDERED: MIDAZOLAM HCL 2 MG/2 ML INJ ONE (08:45)
[2024-06-12] MEDS ORDERED: HEPARIN 10,000 UNIT/10 ML VIAL IV ONE (08:45)
[2024-06-12] MEDS ORDERED: CLOPIDOGREL 75 MG TABLET ONE (08:46)
[2024-06-12] MEDS ORDERED: FENTANYL CITR 100 MCG/2 ML ONE (08:46)
[2024-06-12] MEDS ORDERED: TICAGRELOR 90 MG TABLET PO ONE (08:47)
[2024-06-12] MEDS ORDERED: Phenylephrine HCl 10 MG/ML 1 ML VIAL ONE (09:00)
[2024-06-12 09:58] VITALS: TEMP 97.5
--- NOTE | 2024-06-12 10:32 | P.PN ---
Subjective Date of Service: 06/12/24 Chief Complaint: Chest pain r/o Subjective: No new changes, No C/O voiced, Tolerating diet, Ambulating, Improving Review of Systems 10-point ROS is otherwise unremarkable Physical Examination - Vital Signs Temperature: 97.5 F Blood Pressure: 140/43 Pulse: 48 Respirations: 14 Pulse Ox (%): 97 - Physical Exam General: Alert, In no apparent distress HEENT: Atraumatic, PERRLA, EOMI Neck: Supple, JVD not distended Respiratory: Clear to auscultation bilaterally, Normal air movement Cardiovascular: Regular rate/rhythm, Normal S1 S2 Gastrointestinal: Normal bowel sounds, No tenderness Musculoskeletal: No tenderness Integumentary: No rashes Neurological: Normal speech, Normal tone, Normal affect Lymphatics: No axilla or inguinal lymphadenopathy - Studies Medications List Reviewed: Yes Assessment And Plan - Current Problems (Diagnosis) (1) Chest pain Current Visit: Yes Status: Acute Plan: Patient had a stress test that is abnormal. coronary angiogram done and shows mild CAD. resume home dose Eliquis D/C ASA. (2) Atrial fibrillation Current Visit: No Status: Acute Plan: Patient tele shows AF in the 40-50 resume Eliquis Qualifiers: Atrial fibrillation type: longstanding persistent Qualified Code(s): I48.11 - Longstanding persistent atrial fibrillation
[2024-06-12 12:10] VITALS: BP 136/50; O2SAT 100
--- NOTE | 2024-06-12 12:44 | P.DS ---
Admission Date: 06/11/24 Discharge Date: 06/12/24 Disposition: ROUTINE DISCHARGE Discharge Condition: GOOD Reason for Admission: Chest pain r/o Brief History of Present Illness: Maureen Martin is an 88 year old female with pmhx HLD, HTN, Afib on eliquis, Fx T11-12, heart valvular dysfunction who presents to the ED with chest pain relieved by nitroglycerin x3. She denies an SC or CAD in the past, but has had chest pain before. Daughter and patient are poor historians. It seems, Maureen has a valvular dysfunction but unsure of the details. Significant lab is the BNP 993. Chest xray with no acute findings. Initial vitals BP 124 / 61; Pulse 52; Resp 15; Temp 98.2; Pulse Ox 99%. EKG sinus bradycardia. Hospital Course: Problem list Chest pain r/o History of Afib on Eliquis History of heart valve disfunction HTN/HLD Fx T11-12 Patient was admitted to the hospital for chest pain. She underwent a stress test which was abnormal. Coronary angiogram was performed on 06/12/2024 which showed only mild CAD. He was recommended that patient discontinue her nitroglycerin as cardiology felt it may be contributing to esophageal spasms which are causing her pain. She was instructed to continue her Eliquis for stroke prevention related to her A-fib outpatient. Continue home medications as previously prescribed Follow-up with your primary care doctor and cardiology in the next 1 to 2 weeks Vital Signs/Physical Exam: Temp Pulse Resp BP Pulse Ox 97.5 F 59 14 136/50 L 97 06/12/24 10:32 06/12/24 11:40 06/12/24 11:40 06/12/24 11:40 06/12/24 10:32 General: Alert, In no apparent distress HEENT: Atraumatic, PERRLA Neck: Supple, JVD not distended Respiratory: Clear to auscultation bilaterally, Normal air movement Cardiovascular: Regular rate/rhythm, Normal S1 S2 Gastrointestinal: Normal bowel sounds, No tenderness Musculoskeletal: No tenderness Integumentary: No rashes Neurological: Normal speech, Normal tone, Normal affect Laboratory Data at Discharge: WBC 6.60 thou/uL (4.3-10.9) 06/12/24 05:12 Hgb 14.0 g/dL (12.0-15.0) 06/12/24 05:12 Hct 41.5 % (36.0-45.0) 06/12/24 05:12 Plt Count 171 thou/uL (152-406) 06/12/24 05:12 Sodium 139 mEq/L (136-145) 06/12/24 05:12 Potassium 3.8 mEq/L (3.5-5.1) 06/12/24 05:12 BUN 25 mg/dL (7-18) H 06/12/24 05:12 Creatinine 0.73 mg/dL (0.55-1.02) 06/12/24 05:12 Glucose 112 mg/dL (74-106) H 06/12/24 05:12 Phosphorus 3.1 mg/dL (2.5-4.9) 06/12/24 05:12 Magnesium 2.3 mg/dL (1.6-2.4) 06/12/24 05:12 Triglycerides 52 mg/dL (<150) 06/11/24 05:06 Cholesterol 125 mg/dL (<200) 06/11/24 05:06 HDL Cholesterol 54 mg/dL (40-60) 06/11/24 05:06 Cholesterol/HDL Ratio 2.31 06/11/24 05:06 Home Medications: Omeprazole [Prilosec] 40 mg PO DAILY 03/29/21 Oxybutynin Chloride [Oxybutynin Chloride ER] 5 mg PO BID 03/29/21 Rosuvastatin [Crestor*] 10 mg PO BEDTIME 03/29/21 Apixaban [Eliquis] 5 mg PO BID 06/11/24 Gabapentin 100 mg PO BID 06/11/24 Trazodone [Desyrel*] 50 mg PO BEDTIME 06/11/24 Physician Discharge Instructions: Patient was admitted to the hospital for chest pain. She underwent a stress test which was abnormal. Coronary angiogram was performed on 06/12/2024 which showed only mild CAD. He was recommended that patient discontinue her nitroglycerin as cardiology felt it may be contributing to esophageal spasms which are causing her pain. She was instructed to continue her Eliquis for stroke prevention related to her A-fib outpatient. Continue home medications as previously prescribed Follow-up with your primary care doctor and cardiology in the next 1 to 2 weeks Diet: AHA Activity: Fall precautions Followup: Magen Baugh MD [ACTIVE - CAN ADMIT] - 1-2 Weeks Cee Nielsen FNP [Primary Care Provider] - 1 Week Time spent managing pt's care (in minutes): 36
[2024-06-12] MEDS: POTASSIUM CL SA 10 MEQ TAB PO ONE (13:19)
--- NOTE | 2024-06-12 13:42 | ECHO ---
HEIGHT: 5 ft 1 in WEIGHT: 105 lb 0 oz DATE OF STUDY: 06/11/[address]: Analilia Crews NP 2-DIMENSIONAL: YES M.MODE: YES DOPPLER: YES COLOR FLOW: YES TDS: NO PORTABLE: YES DEFINITY: NO BUBBLE STUDY: NO DIAGNOSIS: CHEST PAIN CARDIAC HISTORY: CATHERIZATION: SURGERY: PROSTHETIC VALVE: PACEMAKER: MEASUREMENTS (cm) DIASTOLIC (NORMALS) SYSTOLIC (NORMALS) IVSd 0.9 (0.6-1.2) LA Diam 3.9 (1.9-4.0) LVEF 55% LVIDd 3.6 (3.5-5.7) LVIDs 2.7 (2.0-3.5) %FS 26% LVPWd 1.1 (0.6-1.2) Ao Diam 2.5 (2.0-3.7) 2 DIMENSIONAL ASSESSMENT: RIGHT ATRIUM: ENLARGED LEFT ATRIUM: SEVERELY DILATED RIGHT VENTRICLE: NORMAL LEFT VENTRICLE: NORMAL TRICUSPID VALVE: MILD TRICUSPID REGURGITATION MITRAL VALVE: SEVERE MITRAL ANNULAR CALCIFICATION PULMONIC VALVE: NORMAL AORTIC VALVE: CALCIFIED PERICARDIAL EFFUSION: NONE AORTIC ROOT: NORMAL LEFT VENTRICULAR WALL MOTION: NORMAL. DOPPLER/COLOR FLOW: GRAD II DIASTOLIC DYSFUNCTION. COMMENTS: 1. NORMAL LEFT VENTRICULAR SYSTOLIC FUNCTION, EJECTION FRACTION 55%, NORMAL WALL MOTION. 2. GRADE II DIASTOLIC DYSFUNCTION. 3. MODERATE AORTIC STENOSIS (AORTIC VALVE AREA 1.1 CENTIMETERS SQUARED, MEAN GRADIENT 20mmHg). MODERATE AORTIC REGURGITATION. TECHNOLOGIST: KELLY JOHNSON
--- NOTE | 2024-06-12 20:53 | OP ---
Date of Procedure: 06/12/2024 Surgeon: Magen Baugh Procedures Performed: 1.Left heart catheterization. 2.Selective coronary angiogram. Indication For Procedure: Unstable angina, abnormal stress test. Complications: None. Estimated Blood Loss: Less than 50 cc. Access: Right radial, closed by TR band. Sedation Time: 20 minutes with 1 of Versed and 25 of fentanyl. Description Of Procedure: After risks, benefits, and alternatives were explained to the patient, the patient agreed to proceed with procedure and signed informed consent. The patient was brought back to the crown and bridge dental lab technician, prepped and draped in sterile fashion. Time-out was performed. Sedation was admini stered. Next, right radial access was obtained using ultrasound-guided micropuncture technique. Tig er 4 catheter was advanced over J-wire to the LV cavity. LVEDP was obtained. Pullback showed mild g radient. Same catheter was used for selective angiogram of the left and right coronary systems. At the end of procedure, catheter was removed over a J-wire. Sheath was removed. TR band was applied. Hemostasis was achieved. The patient was moved back to recovery in stable condition. Findings: 1.Left main: Normal. 2.LAD: Tortuous artery with mild luminal irregularities. 3.Left circumflex: Small mild luminal irregularities. 4.RCA: Large dominant with mid diffuse 20% to 30% disease and mild luminal irregularities. 5.LVEDP: 13 mmHg. Assessment And Plan: 1.Mild nonobstructive coronary artery disease. 2.Normal filling pressure. Plan will be to continue medical management. BRINA/LUIS ANTONIO Voice ID: [id number] Report ID: [id number]
--- NOTE | 2024-06-13 12:39 | EKG ---
Test Date: 2024-06-10 Test Time: 14:13:23 Handle And Vent Machine Operator: MEASUREMENT RESULTS: Intervals: Rate: 43 AR: QRSD: 130 QT: 516 QTc: 436 [place]: P: AR: QRS: -65 T: 90 INTERPRETIVE STATEMENTS: Atrial fibrillation with slow ventricular response Left axis deviation Nonspecific intraventricular block Cannot rule out Anteroseptal infarct, age undetermined Abnormal ECG Compared to ECG 04/23/2022 06:47:33 Myocardial infarct finding now present Left bundle-branch block no longer present Electronically Signed On 06-13-24 12:33:37 LOGGING CONTRACTOR by Magen Baugh
== END 2024-06-12 14:15 | disposition home or self-care (01) | DRG 287 ==
LOC: ER 13:30 → ERHOLD 16:09 → 4TH 22:23 → OBSVTOIN 06-11 15:59
PROVIDERS: ADMIT Internal Medicine; ATTEND Hospitalist
PROC: 4A023N7 Measurement of Cardiac Sampling and Pressure, Left Heart, Percutaneous Approach (ICD-10-PCS; principal; 2024-06-12)
PROC: B2111ZZ Fluoroscopy of Multiple Coronary Arteries using Low Osmolar Contrast (ICD-10-PCS; 2024-06-12)
DX: I25.10 Atherosclerotic heart disease of native coronary artery without angina pectoris (principal); I48.11 Longstanding persistent atrial fibrillation; E78.5 Hyperlipidemia, unspecified; I10 Essential (primary) hypertension; R00.1 Bradycardia, unspecified; Z88.5 Allergy status to narcotic agent; Z79.01 Long term (current) use of anticoagulants; Z91.040 Latex allergy status; Z87.891 Personal history of nicotine dependence; Z79.899 Other long term (current) drug therapy
CPT/HCPCS: 36415; 71045; 76937; 78452; 80048; 80061; 81001; 83036; 83735; 83880; 84100; 84439; 84443; 84484; 85025; 87077; 87086; 87088; 87186; 93005; 93017; 93306; 93458; 97116; 97161; 99152; 99153; 99285; A9500; C1893; G0378; J0461; J1644; J2003; J2250; J2371; J2785; J3010; J7040; Q9966